=== PATIENT | female | born 1940 | race Caucasian/White ===

== ENCOUNTER 2019-11-14 14:39 | Outpatient (CLI) | payer MEDICARE, OTHER, SELFPAY ==
--- NOTE | 2019-11-14 14:50 | MM_ITS ---
WS: [id number] BILATERAL DIGITAL SCREENING MAMMOGRAPHY WITH CAD CLINICAL INFORMATION: SCREENING HISTORY: Screening mammogram. No current complaints. COMPARISON: October 12, 2018 TECHNIQUE: Bilateral CC and MLO views. FINDINGS: The breasts are composed of heterogeneous fibroglandular density tissue, which can limit the detectio n of small underlying mass lesions. No suspicious mass, asymmetry, calcifications, or architectural d istortion. No evidence of malignancy. MM/[place] [id number] IMPRESSION: BI-RADS: 1-Negative FOLLOW UP: 1 Year Follow-up Recommend return to annual screening mammography.
== END 2019-11-14 14:40 | disposition home or self-care (01) ==
LOC: RADSHAW 14:43
PROVIDERS: Family Provider Family Medicine; PCP Family Medicine; Visit Provider Family Medicine
DX: Z12.31 Encounter for screening mammogram for malignant neoplasm of breast (principal)
CPT/HCPCS: 77067

== ENCOUNTER 2019-12-31 10:24 | Outpatient (CLI) | payer MEDICARE, OTHER, SELFPAY ==
[2019-12-31 10:46] VITALS: BP 162/82; PULSE 60; RESP 18; TEMP 36.4; O2SAT 94; BMI 18.8
[2019-12-31] MEDS: denosumab 60 mg SDV SUBCUT (10:48)
[2019-12-31 11:29] LABS: Calcium 10.6 mg/dL (8.5-10.5)
== END 2019-12-31 10:25 | disposition home or self-care (01) ==
LOC: GILAB 10:31
PROVIDERS: Family Provider Family Medicine; PCP Family Medicine; Visit Provider Family Medicine
DX: M81.0 Age-related osteoporosis without current pathological fracture (principal)
CPT/HCPCS: 82310; 82565; 96372; J0897

== ENCOUNTER → 2020-07-10 11:15 | Day surgery (SDC) | payer MEDICARE, OTHER, SELFPAY ==
[2020-07-10 11:54] VITALS: BMI 18.8
[2020-07-10] MEDS: denosumab 60 mg SDV SUBCUT (12:34)
== END ==
PROVIDERS: PCP Family Medicine; Visit Provider Family Medicine
DX: M81.0 Age-related osteoporosis without current pathological fracture (principal)
CPT/HCPCS: 96372; J0897

== ENCOUNTER 2020-11-25 13:27 | Outpatient (CLI) | payer MEDICARE, OTHER, SELFPAY ==
--- NOTE | 2020-11-25 13:38 | MM_ITS ---
WS: [id number] BILATERAL SCREENING DIGITAL MAMMOGRAM WITH CAD HISTORY: SCREENING COMPARISON: 11/14/2019, 10/22/2018, 10/19/2017 Bilateral CC and MLO views submitted. Computer aided detection analyzed. Breast composition: There are scattered areas of fibroglandular density. No suspicious masses, microc alcifications or architectural distortion. Asymmetries in each breast are stable over multiple prior years. MM/[place] [id number] IMPRESSION: BI-RADS: 2-Benign FOLLOW UP: 1 Year Follow-up
== END 2020-11-25 13:28 | disposition home or self-care (01) ==
LOC: RADSHAW 13:34
PROVIDERS: PCP Family Medicine; Visit Provider Family Medicine
DX: Z12.31 Encounter for screening mammogram for malignant neoplasm of breast (principal)
CPT/HCPCS: 77067

== ENCOUNTER → 2021-01-19 09:14 | Day surgery (SDC) | payer MEDICARE, OTHER, SELFPAY ==
[2021-01-19 09:30] VITALS: BP 157/80; PULSE 70; RESP 16; TEMP 36.6; O2SAT 98
[2021-01-19 09:31] VITALS: BMI 18.8
[2021-01-19] MEDS: denosumab 60 mg SDV SUBCUT (09:40)
== END ==
PROVIDERS: PCP Family Medicine; Visit Provider Family Medicine
DX: M81.0 Age-related osteoporosis without current pathological fracture (principal)
CPT/HCPCS: 96372; J0897

== ENCOUNTER 2021-02-16 15:17 | Outpatient (CLI) | payer MEDICARE, OTHER, SELFPAY ==
--- NOTE | 2021-02-16 15:32 | XR_ITS ---
WS: [id number] SCREENING DEXA SCAN VIRIDAXIS CLINICAL INFORMATION: AGE RELATED OSTEOPOROSIS WITHOUT CURRENT PATHOLOGICAL FRACTU COMPARISON: 018 FINDINGS: The L1-L4 bone mineral density measures 0.965 g/cm2. This corresponds to a T score score of -1.8 and Z score of 0.5. Left femoral neck bone mineral density measures 0.568 g/cm2. This corresponds to a T score of -3.5 an d Z score of -1.1. Right femoral neck bone mineral density measures 0.565 g/cm2. This corresponds to a T score -3.5of an d Z score of -1.1. Mean femoral neck bone mineral density measures 0.566 g/cm2. This corresponds to a T score of -3.5 an d Z score of -1.1. XR/XR DEXA axial skeleton* [id number] IMPRESSION: Osteopenia lumbar spine. Osteoporosis in the femoral necks. Patient's FRAX calculated 10 year probability for major osteoporotic fracture i s 59.8 % and osteoporotic hip fracture is 50.8%.
== END 2021-02-16 15:18 | disposition home or self-care (01) ==
LOC: RADWPI 15:22
PROVIDERS: PCP Family Medicine; Visit Provider Family Medicine
DX: M81.0 Age-related osteoporosis without current pathological fracture (principal); M85.88 Other specified disorders of bone density and structure, other site
CPT/HCPCS: 77080

== ENCOUNTER 2021-04-03 17:06 | Inpatient (IN) | payer MEDICARE, OTHER, SELFPAY ==
[2021-04-03] VITALS (9 sets, daily range): BP systolic 81–121; BP diastolic 57–77; PULSE 60–97; RESP 18–21; TEMP 36.5–37.2; O2SAT 92–100; BMI 18.8
--- NOTE | 2021-04-03 17:22 | ECG_ITS ---
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 Measurements Intervals [place] Rate: 80 P: -13 SD: 167 QRS: -25 QRSD: 88 T: -10 QT: 360 QTc: 418 Interpretive Statements SINUS RHYTHM LEFT ATRIAL ENLARGEMENT [-0.15mV P WAVE IN V1/V2] POSSIBLE RIGHT VENTRICULAR CONDUCTION DELAY [RSR (QR) IN V1/V2] POSSIBLE ANTERIOR MYOCARDIAL INFARCTION , OF INDETERMINATE AGE [30 ms Q WAVE IN V3/V4, OR R < 0.2 mV IN V4] Compared to ECG 07/25/2018 12:44:37 Myocardial infarct finding now present ST (T wave) deviation no longer present Electronically Signed On 04-04-2021 16:01:58 CDT by Javier Souza M.D. [id number]
--- NOTE | 2021-04-03 17:22 | XRR_ITS ---
PROCEDURE INFORMATION: Exam: XR Chest Exam date and time: 04/03/2021 5:24 PM Age: 80 years old Clinical indication: Dyspnea; Additional info: Cp TECHNIQUE: Imaging protocol: XR of the chest. Views: 1 view. COMPARISON: CR Ribs Bilateral w PA CXR [id number] 05/24/2018 5:19 PM FINDINGS: Lungs: There is calcified granuloma in the right upper lobe. No acute infiltrate is identified. There are emphysematous changes in both lungs. Pleural spaces: Unremarkable. No pleural effusion. No pneumothorax. Heart/Mediastinum: There is mild cardiomegaly. Bones/joints: Unremarkable. XR/XR chest 1V portable [id number] IMPRESSION: Cardiomegaly. No acute infiltrate.
[2021-04-03] MEDS: sodium chloride 0.9% 1,000 ML 999 ML IV ×2 (17:56→21:23)
[2021-04-03 17:59] LABS: Basophils # 0.1 10^3/uL (0.0-0.1); Basophils % 0.7 %; Eosinophils % 0.1 %; Hematocrit 40.9 % (37.0-47.0); Hemoglobin 13.2 g/dL (11.5-15.3); Lymphocytes # 0.9 10^3/uL (0.8-4.8); Lymphocytes % 8.2 %; Mean Corpuscular HGB Conc 32.3 g/dL (30.0-36.0); Mean Corpuscular Hemoglobin 30.1 pg (28.0-34.0); Mean Corpuscular Volume 93.4 fL (81-99); Mean Platelet Volume 11.8 fL (7.4-10.4); Monocytes # 0.9 10^3/uL (0.2-0.9); Monocytes % 8.9 %; Neutrophils # 8.55 10^3/uL (1.8-7.7); Neutrophils % 81.7 %; Nucleated Red Blood Cells % 0 %; Platelet Count 195 10^3/cmm (130-400); Red Blood Count 4.38 10^6/uL (4.1-5.3); White Blood Count 10.5 10^3/uL (4.0-10.0)
[2021-04-03 18:40] LABS: Alanine Aminotransferase 12 U/L (0-33); Albumin Level 4.2 g/dL (3.5-5.2); Alkaline Phosphatase 38 IU/L (35-105); Anion Gap 13.8 (5-19); Aspartate Amino Transferase 23 U/L (0-32); Blood Urea Nitrogen 22 mg/dL (8-23); Calcium 9.8 mg/dL (8.5-10.5); Carbon Dioxide 29 mmol/L (22-29); Chloride 102 mmol/L (98-107); Creatinine Clr Calc Pharmacy 33.5128; Globulin 1.9 g/dL (1.3-4.6); Glucose 109 mg/dL (65-115); Lipase 53 U/L (13-60); Osmolality Calculated 294 mOsm/kg (285-295); Potassium 4.8 mmol/L (3.5-5.1); Sodium 140 mmol/L (136-145); Total Bilirubin 0.3 mg/dL (0.15-1.2); Total Protein 6.1 g/dL (6.6-8.7)
[2021-04-03 18:42] LABS: Troponin(5th) Baseline 631 ng/L (0-10)
--- NOTE | 2021-04-03 18:49 | PC.NURSE ---
patient denied any nausea at this time. c/o mild tightness to chest. no acute distress noted.
[2021-04-03] MEDS: aspirin 325 mg Tablet PO (18:54)
[2021-04-03] MEDS: clopidogrel 300 mg Tablet PO (18:54)
[2021-04-03] MEDS: enoxaparin 60 mg/0.6 mL Syringe 54 MG SUBCUT (18:56)
--- NOTE | 2021-04-03 19:06 | PM.HP ---
Providers/Chief Complaint Primary Care Provider: Kassy Michel MD Chief Complaint: chest heaviness,N/V,Weak,faint upon standing History of Present Illness Deedee Mcneill is a 80 year old female who does not have significant past medical history other than hypothyroidism and hypertension presented today with chief complaint of nausea and presyncope. Patient is stating that her symptoms started on Monday when she was cleaning her patio and backyard and raking leaves. She was experiencing nausea at that time as well with some chest heaviness but she would not call the chest pain. She considers herself fairly active for her age, involved with her community. Today she was attending class [employer] when around 11 AM she started experiencing nausea again, and felt extremely dizzy, she sat down which resolved her symptoms. Her symptoms lasted for about few seconds. She did not experience any shortness of breath or chest pain. She is denying orthopnea, PND. She went back home and experienced worsening of her symptoms associated with some neck discomfort/stiffness and around 4:00 she decided to come to the hospital for further evaluation. No motor weakness, falls, syncopal events, no previous history of CHF, DC or coronary artery disease. No previous history of stroke. Diagnostics in the ER revealed hypotension, she was saturating well on room air, normal CBC BMP revealed FANI, troponin baseline 631 BNP 348 TSH is normal EKG showing T wave inversion in lead III aVF with upsloping of T waves in lateral leads, anteroseptal leads showing changes consistent with incomplete right bundle branch block, requested D-dimer as she is low risk for PE, Dr. García also came to evaluate the patient. Review of Systems Const: Denies: fever(s) Eyes: Denies: change in vision ENMT: Denies: throat pain Card: Reports: chest pain and pre-syncope Resp: Denies: dyspnea GI: Reports: nausea and constipation : Denies: flank pain Musc: Denies: neck pain Skin/Breast: Denies: rash Neuro: Denies: headache(s) Psych: Denies: anxiety Endo: Denies: polyuria Darrell/Lymph: Denies: easy bruising All/Imm: Denies: urticaria Medications/Allergies Home Medications Medication Instructions Recorded Confirmed Last Taken Type trazodone 50 mg tablet 100 mg PO BEDTIME tab 11/19/19 04/03/21 04/02/21 History hydrochlorothiazide 12.5 mg PO QAM 07/10/20 04/03/21 04/02/21 History Calcium + D 1 tab PO BID 04/03/21 04/03/21 Unknown History Fish Oil 1 cap PO BID 04/03/21 04/03/21 Unknown History Vitamin C 1 tab PO BID 04/03/21 04/03/21 Unknown History levothyroxine 50 mcg PO DAILY@22 04/03/21 04/03/21 04/02/21 History multivitamin 1 tab PO DAILY 04/03/21 04/03/21 Unknown History turmeric 400 mg PO BID 04/03/21 04/03/21 Unknown History zinc 1 cap PO DAILY 04/03/21 04/03/21 Unknown History Allergies Allergy/AdvReac Type Severity Reaction Status Date / Time penicillamine Allergy ALGY-Rash Verified 02/02/21 10:47 Penicillins Allergy Unknown Verified 04/03/21 17:47 Sulfa (Sulfonamide Allergy ALGY-Rash Verified 04/03/21 17:47 Antibiotics) PFSH Acute PFSH: Medical History Closed fracture of right wrist Hypertension Ingrown toenail of left foot Insomnia Onychomycosis of toenail Thyroid disease Surgical History H/O section Family History Grandfather Cancer Mother Hypertension Denies family history of Diabetes CAD (coronary artery disease) Clotting disorder Dementia Hyperlipidemia Psychiatric illness Chronic kidney disease (CKD) Suicide Anesthesia complication Bleeding disorder Family history of premature coronary artery disease Lung disease Stroke Social History Smoking and tobacco status: never smoked Alcohol intake: never Vitals/I&O/Wt Last Vital Signs Temp 98.9 F 04/03/21 17:14 Pulse 71 04/03/21 18:41 Resp 18 04/03/21 18:41 BP 103/75 04/03/21 18:41 Pulse Ox 97 04/03/21 18:41 Weight last 48 hrs Weight 54.431 kg Physical Exam Narrative: EXAM NARRATIVE: elderly female who was laying comfortably in her bed when entered the room, [id number] at the bedside She was saturating well on room air systolic blood pressure 97 mmHg She is complaining of neck stiffness however no signs of meningitis or meningismus S1, S2 sinus rhythm no murmur appreciated no signs of heart failure Abdomen soft Lower extremity no edema gangrene or ulcer EOMI, PERRLA Well hydrated, appropriate grooming, No focal deficits noted No acute respiratory distress bilateral breath sounds without adventitious rhonchi or crackles Very pleasant and cooperative during my evaluation Data : 04/03/21 17:50 04/03/21 18:13 A&P Assessment and plan (1) NSTEMI (non-ST elevated myocardial infarction): Status: Acute (2) FANI (acute kidney injury): Status: Acute Additional A&P Information Non-STEMI Troponin 631, EKG showing T wave inversion lead III, aVF, incomplete right bundle branch block, upsloping of T waves in lateral leads, systolic blood pressure 97 mmHg, patient is complaining of mild neck stiffness and discomfort, her symptoms are angina equivalent Start aspirin, Plavix high-dose statin and Toprol, Dr. García has evaluated her and recommended nitro gtt because of her neck stiffness and EKG changes, however we will monitor with telemetry on CSU if her mean arterial pressure reduces with nitroglycerin as we are seeing changes in inferior leads We will keep her n.p.o. ACS protocol initiated Check D-dimer, TSH normal Serial troponin and EKGs Start lisinopril once creatinine is normal Dr. García consulted Acute kidney injury Patient at home takes hydrochlorothiazide levothyroxine and multivitamins Clinically not fluid overloaded No signs of UTI We will keep her on normal saline at 50 cc/h, monitor BMP urine output and creatinine for now, etiology of FANI unclear Hypertension: Currently systolic blood pressure is 97 mmHg, hold hydrochlorothiazide, TSH is normal Hypothyroidism: Continue levothyroxine N.p.o. DVT prophylaxis not indicated currently on therapeutic dose of Lovenox Full code Attestations Medical Necessity Statement*: Anticipating stay in the hospital cross more than 2 midnights for non-STEMI management Time Spent in Patient Care: (>than 50% of time spent in counselling and/or direct pt care on unit). 40mins Coding Level of Care Code Acute [employer] for Chg Fwd Diagnoses NSTEMI (non-ST elevated myocardial infarction) I21.4 FANI (acute kidney injury) N17.9
--- NOTE | 2021-04-03 19:18 | PC.NURSE ---
hold nitroglycerin tab SL and nitroglycerin drip per MD
--- NOTE | 2021-04-03 19:22 | ECG_ITS ---
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 Measurements Intervals [place] Rate: 73 P: 90 AL: 175 QRS: 93 QRSD: 76 T: 73 QT: 383 QTc: 424 Interpretive Statements SINUS RHYTHM WITH MARKED SINUS ARRHYTHMIA POSSIBLE LEFT ATRIAL ENLARGEMENT [-0.1mV P WAVE IN V1/V2] BORDERLINE RIGHT AXIS DEVIATION [QRS AXIS > 90] MODERATE ST DEPRESSION [0.05+ mV ST DEPRESSION] Compared to ECG 04/03/2021 17:32:29 ST (T wave) deviation now present Myocardial infarct finding no longer present Electronically Signed On 04-04-2021 16:06:17 CDT by Javier Souza M.D. [id number]
--- NOTE | 2021-04-03 19:26 | W.ED.CHESTPA ---
Documented by User: Laney Clintzoraida 04/03/21 19:32 HPI - Chest Pain General: Chief Complaint: Chest Pain Stated Complaint: chest heaviness,N/V,Weak,faint upon standing Time Seen by Provider: 04/03/21 17:12 Source: patient Mode of arrival: ambulatory Limitations: no limitations History of Present Illness: HPI narrative: 80 yo female patient presents to ER with dizziness nausea and chest pressure patient states it feels like something is squeezing her chest. Pt c/o mild SOB. Pt states this started about 1100 today. Pt states she had a similar episode on monday as well. Pt states her only medical history is thyroid disease but otherwise healthy. Associated symptoms: Reports dyspnea; Deny abdominal pain, diaphoresis, fever(s), nausea, palpitations, syncope or vomiting Risk Factors: Coronary artery disease risk factors: none Related Data: On Oral Contraceptives: No Review of Systems Const: Denies: fever(s), chills, body aches, change in appetite, change in weight, fatigue, malaise or diaphoresis Eyes: Denies: change in vision, blurry vision, blind spots, photophobia, eye discomfort, eye discharge, eye redness, floaters or seeing flashes ENMT: Denies: throat pain, uvular edema, enlarged tonsils, odynophagia, hoarseness, mouth pain, swelling of lips/tongue, oral sores, bleeding gums, dental pain, dry mouth, ear or mastoid pain, ear discharge, change in hearing, tinnitus, disequilibrium, nasal discharge, nasal congestion, post nasal drip or sinus pain Card: Reports: chest pain; Denies: palpitations, irregular heart rhythm, edema, swelling of feet/ankles, lightheadedness, syncope, pre-syncope, dyspnea on exertion, orthopnea, leg pain with exertion or acrocyanosis Resp: Reports: dyspnea; Denies: productive cough, non-productive cough, wheezing, stridor, pain on inspiration, change in phlegm color, hemoptysis or chest congestion GI: Denies: abdominal pain, nausea, vomiting, hematemesis, dysphagia, diarrhea, constipation, GI cramping, change in bowel habits or rectal pain : Denies: flank pain, difficulty voiding, dysuria, urinary frequency, urinary urgency, urinary hesitancy or hematuria Musc: Denies: neck pain, back pain, extremity pain, extremity swelling, joint pain, joint swelling, joint redness, joint warmth or deformity Skin/Breast: Denies: rash, pruritus, erythema, sores, new lesions, changes in skin color or dry skin Neuro: Reports: dizziness; Denies: headache(s), numbness in extremities, weakness in extremities, sensory changes, lack of coordination, difficulty walking, frequent falls, vertigo, confusion, behavioral changes, Slurred speech present, difficulty communicating thoughts or seizure-like activity Psych: Denies: anxiety, depression, suicidal ideation or homicidal ideation Endo: Denies: polyuria, polydipsia, tired all the time, cold intolerance, excessive sweating, flushing, hot flashes or heat intolerance Darrell/Lymph: Denies: easy bruising, easy bleeding, petechiae, purpura, enlarged lymph nodes or tender lymph nodes All/Imm: Denies: urticaria, throat swelling, tongue swelling, facial swelling, acute wheezing or itchy eyes PFSH ED PFSH: Medical History (Updated 04/03/21 @ 23:30 by Pankaj Nielson MD, [facility] [place]) Closed fracture of right wrist Hypertension Ingrown toenail of left foot Insomnia Onychomycosis of toenail Thyroid disease Surgical History H/O section Family History Grandfather Cancer Mother Hypertension Denies family history of Diabetes CAD (coronary artery disease) Clotting disorder Dementia Hyperlipidemia Psychiatric illness Chronic kidney disease (CKD) Suicide Anesthesia complication Bleeding disorder Family history of premature coronary artery disease Lung disease Stroke Social History Smoking and tobacco status: never smoked Alcohol intake: never Physical Exam Const: COMMON NORMALS: no acute distress, patient oriented x3, healthy appearing, alert and well nourished GENERAL APPEARANCE: cooperative, comfortable, well kempt and well developed; not ill appearing ORIENTATION/CONSCIOUSNESS: Yes awake, Yes oriented to person, Yes oriented to place and Yes oriented to time HENMT: COMMON NORMALS: normocephalic, atraumatic, hearing grossly normal bilaterally, external ears normal, EAC's normal, TM's normal bilaterally, Normal external nose present, Normal nasal mucous membranes and turbinates present and moist oral mucous membranes HEAD & SCALP: normal to inspection, normocephalic and atraumatic FACE & SINUS: normal facial exam, sinuses nontender and face symmetric NOSE: Normal external nose present, Normal nares present, Normal nasal mucous membranes and turbinates present, No nasal discharge present and Abnormal external nose present EXTERNAL EAR: Yes external ears normal and Yes mastoids normal EXTERNAL AUDITORY CANAL: EAC's normal TYMPANIC MEMBRANE: TM's normal bilaterally MOUTH: Normal oral and palatal mucosa present, lip normal, tongue normal and Normal salivary glands and ducts present THROAT: no uvular edema Eye: COMMON NORMALS: Equal, round and reactive pupils present, EOMs intact bilaterally, conjunctivae normal, no scleral icterus and no papilledema GENERAL EYE: appearance normal, both eyes and all related structures EYELID: eyelids normal CONJUNCTIVA: Yes conjunctivae normal SCLERA: sclerae normal CORNEA: Yes corneas normal PUPIL: Yes Equal, round and reactive pupils present DIRECT OPHTHALMOSCOPY: Yes no papilledema Neck/C-Spine: COMMON NORMALS: full ROM, no lymphadenopathy, supple, no meningeal signs, no JVD and Thyroid normal GENERAL: Yes normal visual inspection and Yes trachea midline THYROID: Thyroid normal CERVICAL SPINE: Yes cervical ROM normal Lymph: LYMPHATIC: no lymphadenopathy noted and no lymphedema noted Chest: COMMONS NORMALS: normal inspection of the chest and normal palpation of entire chest wall Resp: COMMON NORMALS: normal respiratory effort, No retractions, No use of accessory muscles and clear to auscultation bilaterally EFFORT & INSPECTION: Yes able to speak in complete sentences and Yes symmetric chest movement AUSCULTATION: clear to auscultation bilaterally Cardio: COMMON NORMALS: no JVD, regular rate and regular rhythm RATE: regular rate RHYTHM: regular rhythm GI: COMMON NORMALS: Normal to inspection, nondistended, normoactive bowel sounds present, Soft to palpation, non-tender, No hepatosplenomegaly present, no masses and no bruits INSPECTION: Yes normal to inspection AUSCULTATION: Yes normoactive bowel sounds PALPATION: Yes Soft to palpation and Yes No hepatosplenomegaly present PERCUSSION: normal to percussion RECTAL EXAM: deferred : COMMON NORMALS: Yes no CVA tenderness, Yes normal external appearance, Yes normal appearance of the vagina, Yes normal appearance of the cervix, Yes normal bimanual exam, Yes No adnexal tenderness and Yes no masses BLADDER/KIDNEY EXAM: Yes no CVA tenderness BIMANUAL EXAM - VAGINA & UTERUS: Yes normal bimanual exam Back/Pelvis: COMMON NORMALS: no CVA tenderness, thoracic and lumbar spine normal to inspection, no thoracic nor lumbar tenderness, thoraco-lumbar ROM normal and straight leg raise negative bilaterally THORACIC SPINE/UPPER BACK: Yes normal to inspection LUMBAR SPINE/LOWER BACK: Yes normal to inspection Extremity: COMMON NORMALS: normal to inspection, full ROM and capillary refill normal GENERAL: Yes normal exam except as noted Neuro: COMMON NORMALS: patient oriented x3, CN's II-XII intact bilaterally, moves all extremities, no focal motor deficits, no sensory deficits noted, deep tendon reflexes 2+ bilaterally and gait normal SENSORIUM/ORIENTATION: Yes alert, Yes oriented to person, Yes oriented to place and Yes oriented to time MENINGEAL SIGNS: Yes no meningeal signs CRANIAL NERVES: Yes CN normal except as noted SPEECH: speech normal GAIT: Yes Normal gait present SENSORY EXAM: Yes extremities MOTOR EXAM: 5/5 motor strength present throughout Psych: COMMON NORMALS: mental status grossly normal, Normal thought process present, cooperative, normal affect, speech normal, activity/motor behavior normal, denies hallucinations, denies homicidal ideation and denies suicidal ideation APPEARANCE: Yes grossly normal and Yes well kempt ATTITUDE: Yes calm ACTIVITY/MOTOR BEHAVIOR: Yes appropriate eye contact SPEECH: Yes normal speech THOUGHT PROCESS: Normal thought process present THOUGHT CONTENT: Yes Normal thought content present ATTENTION/CONCENTRATION: Yes attention grossly intact MEMORY/COGNITION: Yes memory grossly intact INSIGHT: Good insight present (Psych) JUDGEMENT: Good judgement present (Psych) Skin: COMMON NORMALS: no rashes or lesions noted, no wounds, turgor normal, no jaundice, no petechiae and no mottling GENERAL SKIN EXAM: no rashes or lesions noted and turgor normal Course Vital Signs: Vital signs: Vital Signs Temperature 97.7 F 04/03/21 20:14 Pulse Rate 79 04/03/21 22:30 Respiratory Rate 21 H 04/03/21 20:14 Blood Pressure 108/72 04/03/21 20:14 Pulse Oximetry 100 04/03/21 20:14 MDM - Chest Pain MDM Narrative: Medical decision making narrative: Pt is well appearing non toxic and in no acute distress. Based on patient presenting complaints and age, I will plan on doing a cardiac work up check TSH as it has been over a year and also CT head and neck angio. Pts initial trop was over 60. Dr. Nielson spoke with medical staff director who would like nitro gtts asa and lovenox initiated. Other labs and CT pending. I will plan on admitting patient at this time. Pt is stable with stable VSS. Pt has been updated of this plan Lab Data: Labs: Lab Results 04/03/21 04/03/21 04/03/21 Range/Units 17:50 17:50 17:50 WBC 10.5 H (4.0-10.0) 10^3/ uL RBC 4.38 (4.1-5.3) 10^6/u L Hgb 13.2 (11.5-15.3) g/dL Hct 40.9 (37.0-47.0) % MCV 93.4 (81-99) fL MCH 30.1 (28.0-34.0) pg MCHC 32.3 (30.0-36.0) g/dL RDW 13.0 (12.1-15.1) % Plt Count 195 (130-400) 10^3/c mm MPV 11.8 H (7.4-10.4) fL Neut % (Auto) 81.7 % Lymph % (Auto) 8.2 % [place] % (Auto) 8.9 % Eos % (Auto) 0.1 % Baso % (Auto) 0.7 % Neut # (Auto) 8.55 H (1.8-7.7) 10^3/u L Lymph # (Auto) 0.9 (0.8-4.8) 10^3/u L [place] # (Auto) 0.9 (0.2-0.9) 10^3/u L Eos # (Auto) 0.0 (0.0-0.8) 10^3/u L Baso # (Auto) 0.1 (0.0-0.1) 10^3/u L Nucleated RBC % (a uto) 0 % Nucleated RBCs # 0.0 /100WBC Sodium Cancelled Potassium Cancelled Chloride Cancelled Carbon Dioxide Cancelled Anion Gap Cancelled BUN Cancelled Creatinine Cancelled GFR Calculation Cancelled Glucose Cancelled Calculated Osmolal ity Cancelled Calcium Cancelled Magnesium (1.7-2.3) mg/dL Total Bilirubin Cancelled AST Cancelled ALT Cancelled Alkaline Phosphata se Cancelled Troponin T Baselin e Cancelled NT-Pro-B Natriuret Pep (0-450) pg/mL Total Protein Cancelled Albumin Cancelled Globulin Cancelled Lipase Cancelled TSH (0.27-4.20) uIU/ mL 04/03/21 04/03/21 04/03/21 Range/Units 18:13 18:13 18:13 WBC (4.0-10.0) 10^3/ uL RBC (4.1-5.3) 10^6/u L Hgb (11.5-15.3) g/dL Hct (37.0-47.0) % MCV (81-99) fL MCH (28.0-34.0) pg MCHC (30.0-36.0) g/dL RDW (12.1-15.1) % Plt Count (130-400) 10^3/c mm MPV (7.4-10.4) fL Neut % (Auto) % Lymph % (Auto) % [place] % (Auto) % Eos % (Auto) % Baso % (Auto) % Neut # (Auto) (1.8-7.7) 10^3/u L Lymph # (Auto) (0.8-4.8) 10^3/u L [place] # (Auto) (0.2-0.9) 10^3/u L Eos # (Auto) (0.0-0.8) 10^3/u L Baso # (Auto) (0.0-0.1) 10^3/u L Nucleated RBC % (a uto) % Nucleated RBCs # /100WBC Sodium 140 Potassium 4.8 Chloride 102 Carbon Dioxide 29 Anion Gap 13.8 BUN 22 Creatinine 1.2 H GFR Calculation Not Reportable Glucose 109 Calculated Osmolal ity 294 Calcium 9.8 Magnesium 2.3 (1.7-2.3) mg/dL Total Bilirubin 0.3 AST 23 ALT 12 Alkaline Phosphata se 38 Troponin T Baselin e 631 H* NT-Pro-B Natriuret Pep 348 (0-450) pg/mL Total Protein 6.1 L Albumin 4.2 Globulin 1.9 Lipase 53 TSH 2.38 (0.27-4.20) uIU/ mL Discharge Plan Discharge Patient Disposition: Admitted As Inpatient Admit Provider: Alfredo Olmedo Clinical Impression: NSTEMI (non-ST elevated myocardial infarction) Condition: Stable Coding Level of Care Code ED Project Controls Specialist for Chg Fwd Exam Comprehensive Documented by User: Pankaj Nielson MD, MSM 04/03/21 23:30 HPI - Chest Pain General: Chief Complaint: Chest Pain Stated Complaint: chest heaviness,N/V,Weak,faint upon standing Time Seen by Provider: 04/03/21 17:12 PFSH ED PFSH: Medical History (Updated 04/03/21 @ 23:30 by Pankaj Nielson MD, [facility] [place]) Closed fracture of right wrist Hypertension Ingrown toenail of left foot Insomnia Onychomycosis of toenail Thyroid disease Surgical History H/O section Family History Grandfather Cancer Mother Hypertension Denies family history of Diabetes CAD (coronary artery disease) Clotting disorder Dementia Hyperlipidemia Psychiatric illness Chronic kidney disease (CKD) Suicide Anesthesia complication Bleeding disorder Family history of premature coronary artery disease Lung disease Stroke Social History Smoking and tobacco status: never smoked Alcohol intake: never Course Vital Signs: Vital signs: Vital Signs Temperature 97.7 F 04/03/21 20:14 Pulse Rate 79 04/03/21 22:30 Respiratory Rate 21 H 04/03/21 20:14 Blood Pressure 108/72 04/03/21 20:14 Pulse Oximetry 100 04/03/21 20:14 MDM - Chest Pain MDM Narrative: Medical decision making narrative: Kindly evaluate the midlevel provider's notes for complete history and physical examination I also evaluated this patient and agree with her findings. Essentially this is an 80-year-old female with no prior cardiac history who presents to the emergency department with chest pain, dizziness, diaphoresis, nausea. Evaluation in the emergency department is consistent with a non-STEMI with baseline troponin in the 600s, no significant EKG changes. She was given aspirin, nitroglycerin, clopidogrel, therapeutic dose of Lovenox and admitted to the cardiac stepdown unit for further evaluation and management. She will be seen in the hospital by the medical staff director as well as hospitalist. Lab Data: Labs: Lab Results 04/03/21 04/03/21 04/03/21 Range/Units 17:50 17:50 17:50 WBC 10.5 H (4.0-10.0) 10^3/ uL RBC 4.38 (4.1-5.3) 10^6/u L Hgb 13.2 (11.5-15.3) g/dL Hct 40.9 (37.0-47.0) % MCV 93.4 (81-99) fL MCH 30.1 (28.0-34.0) pg MCHC 32.3 (30.0-36.0) g/dL RDW 13.0 (12.1-15.1) % Plt Count 195 (130-400) 10^3/c mm MPV 11.8 H (7.4-10.4) fL Neut % (Auto) 81.7 % Lymph % (Auto) 8.2 % [place] % (Auto) 8.9 % Eos % (Auto) 0.1 % Baso % (Auto) 0.7 % Neut # (Auto) 8.55 H (1.8-7.7) 10^3/u L Lymph # (Auto) 0.9 (0.8-4.8) 10^3/u L [place] # (Auto) 0.9 (0.2-0.9) 10^3/u L Eos # (Auto) 0.0 (0.0-0.8) 10^3/u L Baso # (Auto) 0.1 (0.0-0.1) 10^3/u L Nucleated RBC % (a uto) 0 % Nucleated RBCs # 0.0 /100WBC Sodium Cancelled Potassium Cancelled Chloride Cancelled Carbon Dioxide Cancelled Anion Gap Cancelled BUN Cancelled Creatinine Cancelled GFR Calculation Cancelled Glucose Cancelled Calculated Osmolal ity Cancelled Calcium Cancelled Magnesium (1.7-2.3) mg/dL Total Bilirubin Cancelled AST Cancelled ALT Cancelled Alkaline Phosphata se Cancelled Troponin T Baselin e Cancelled NT-Pro-B Natriuret Pep (0-450) pg/mL Total Protein Cancelled Albumin Cancelled Globulin Cancelled Lipase Cancelled TSH (0.27-4.20) uIU/ mL 04/03/21 04/03/21 04/03/21 Range/Units 18:13 18:13 18:13 WBC (4.0-10.0) 10^3/ uL RBC (4.1-5.3) 10^6/u L Hgb (11.5-15.3) g/dL Hct (37.0-47.0) % MCV (81-99) fL MCH (28.0-34.0) pg MCHC (30.0-36.0) g/dL RDW (12.1-15.1) % Plt Count (130-400) 10^3/c mm MPV (7.4-10.4) fL Neut % (Auto) % Lymph % (Auto) % [place] % (Auto) % Eos % (Auto) % Baso % (Auto) % Neut # (Auto) (1.8-7.7) 10^3/u L Lymph # (Auto) (0.8-4.8) 10^3/u L [place] # (Auto) (0.2-0.9) 10^3/u L Eos # (Auto) (0.0-0.8) 10^3/u L Baso # (Auto) (0.0-0.1) 10^3/u L Nucleated RBC % (a uto) % Nucleated RBCs # /100WBC Sodium 140 Potassium 4.8 Chloride 102 Carbon Dioxide 29 Anion Gap 13.8 BUN 22 Creatinine 1.2 H GFR Calculation Not Reportable Glucose 109 Calculated Osmolal ity 294 Calcium 9.8 Magnesium 2.3 (1.7-2.3) mg/dL Total Bilirubin 0.3 AST 23 ALT 12 Alkaline Phosphata se 38 Troponin T Baselin e 631 H* NT-Pro-B Natriuret Pep 348 (0-450) pg/mL Total Protein 6.1 L Albumin 4.2 Globulin 1.9 Lipase 53 TSH 2.38 (0.27-4.20) uIU/ mL Imaging Data^: CXR: Attestation: I personally reviewed and interpreted this imaging study as follows: Radiologist's impression: [id number] [place], [place] [address]TMxb ReportSigned Patient: Kyle Mcneill #: [id number]: [id number]#:[id number]/Sex: 80 / FADM Date: 04/03/21Loc: ERRoom/Bed:Attending Dr: Ordering Provider/Ordering MD: Laney Griffith NP Date of Service: 04/03/21 Procedure(s): XR chest 1V portable [id number] Accession Number(s): [id number] Report Number: [id number] PROCEDURE INFORMATION: Exam: XR Chest Exam date and time: 04/03/2021 5:24 PM Age: 80 years old Clinical indication: Dyspnea; Additional info: Cp TECHNIQUE: Imaging protocol: XR of the chest. Views: 1 view. COMPARISON: CR Ribs Bilateral w PA CXR [id number] 05/24/2018 5:19 PM FINDINGS: Lungs: There is calcified granuloma in the right upper lobe. No acute infiltrate is identified. There are emphysematous changes in both lungs. Pleural spaces: Unremarkable. No pleural effusion. No pneumothorax. Heart/Mediastinum: There is mild cardiomegaly. Bones/joints: Unremarkable. XR/XR chest 1V portable [id number] IMPRESSION: Cardiomegaly. No acute infiltrate. Dictated By:Danelle Serranoigned By:Candelario Serrano Date/Time:04/03/211817DD/ 16 EKG Data^: EKG 1: Attestation: I personally reviewed and interpreted this EKG as follows: EKG interpretation date: 04/03/21 EKG interpretation time: 17:32 Prior EKG tracings: not available for review Interpretation: sinus rhythm HR 80 bpm Left atrial enlargement. No ST changes EKG 2: Attestation: I personally reviewed and interpreted this EKG as follows: EKG interpretation date: 04/03/21 EKG interpretation time: 19:09 Prior EKG tracings: available for review Interpretation: Sinus rhythm. Heart rate 73 bpm. Left atrial enlargement. No ST changes. No significant change from earlier. Discharge Plan Discharge Patient Disposition: Admitted As Inpatient Admit Provider: Alfredo Olmedo Clinical Impression: NSTEMI (non-ST elevated myocardial infarction) Condition: Stable Coding Level of Care Code ED Project Controls Specialist for g Fwd Exam Comprehensive
[2021-04-03 19:29] LABS: INR 0.95 (0.8-1.2)
[2021-04-03 19:30] LABS: Partial Thromboplastin Time 25.7 SECONDS (23.9-36.7)
[2021-04-03 19:40] LABS: Magnesium 2.3 mg/dL (1.7-2.3); NT Pro B Type Natriuretic Pept 348 pg/mL (0-450); Thyroid Stimulating Hormone 2.38 uIU/mL (0.27-4.20)
--- NOTE | 2021-04-03 19:48 | PC.NURSE ---
Dr Souza on the floor presently. Discussed plan for this patient. Will watch troponins closely. If continue to elevate will contact doctor for possible left heart catheterization tonight. Due to decreased SBP 90s-low 100s with hold nitroglycerin drip for now and start nitropaste 0.5in topically. RBVO
--- NOTE | 2021-04-03 19:57 | PC.NURSE ---
Patient received Lovenox 54mg at 1855 with next dose of 60mg due at [address]. [address] Souza and received okay to not administer the 1937 dose of Lovenox.
[2021-04-03] MEDS: nitroglycerin 1 gm/inch oint Pkt 0.5 INCH TOPICAL (20:17)
[2021-04-03] MEDS: metoprolol succinate ER (24 HR) 25 mg Tablet 12.5 MG PO (20:26)
--- NOTE | 2021-04-03 20:27 | PC.NURSE ---
Addendum entered by Rosamaria Hidalgo RN 04/03/21 20:58: Dr Olmedo notified. Original Note: Lipitor and metoprolol given prior to discontinued.
--- NOTE | 2021-04-03 20:35 | P.CONIM_ITS ---
Providers/Reason For Consult Consulting Physician/Specialty*: Javier Souza MD/ Cardiology Reason for Consult*: NSTEMI Requesting Physician: Dr Nielson Attending Physician: Alfredo Olmedo MD Primary Care Provider: Kassy Michel MD History of Present Illness History of Present Illness Deedee Mcneill is a 80 year old female with past medical history of hypertension and hypothyroidism has presented to the hospital with complaints of nausea, chest tightness and dizziness. According to patient at around 11 AM she noted nausea and was very dizzy. She had to sit down which resolved the symptoms. However she is still having tightness in the jaw. Her initial troponin was 635. She had similar episode on Monday when she was raking leaves on patio when she had chest tightness and felt dizzy. Initial EKG has incomplete right bundle branch block. Q waves noted in inferior leads. No prior significant cardiac history. Review of Systems Const: Denies: fever(s) Eyes: Denies: change in vision ENMT: Denies: throat pain Card: Reports: chest pain and pre-syncope Resp: Denies: dyspnea GI: Reports: nausea and constipation : Denies: flank pain Musc: Denies: neck pain Skin/Breast: Denies: rash Neuro: Denies: headache(s) Psych: Denies: anxiety Endo: Denies: polyuria Darrell/Lymph: Denies: easy bruising All/Imm: Denies: urticaria Meds/Allergies Home Medications and Allergies Home Medications Medication Instructions Recorded Confirmed Last Taken Type trazodone 50 mg tablet 100 mg PO BEDTIME tab 11/19/19 04/03/21 04/02/21 History hydrochlorothiazide 12.5 mg PO QAM 07/10/20 04/03/21 04/02/21 History Calcium + D 1 tab PO BID 04/03/21 04/03/21 Unknown History Fish Oil 1 cap PO BID 04/03/21 04/03/21 Unknown History Vitamin C 1 tab PO BID 04/03/21 04/03/21 Unknown History levothyroxine 50 mcg PO DAILY@22 04/03/21 04/03/21 04/02/21 History multivitamin 1 tab PO DAILY 04/03/21 04/03/21 Unknown History turmeric 400 mg PO BID 04/03/21 04/03/21 Unknown History zinc 1 cap PO DAILY 04/03/21 04/03/21 Unknown History Allergies Allergy/AdvReac Type Severity Reaction Status Date / Time penicillamine Allergy ALGY-Rash Verified 02/02/21 10:47 Penicillins Allergy Unknown Verified 04/03/21 17:47 Sulfa (Sulfonamide Allergy ALGY-Rash Verified 04/03/21 17:47 Antibiotics) Current Medications Current Medications Generic Name Dose Route Start Last Admin Trade Name Freq PRN Reason Stop Dose Admin Nitroglycerin 0.5 inch 04/03/21 20:00 04/03/21 20:17 Nitroglycerin 1 Gm/Inch Oint Pkt TOPICAL 0.5 inch Q6H JLUIS Administration PFSH Acute PFSH: Medical History (Updated 04/04/21 @ 08:05 by Javier Souza M.D) Closed fracture of right wrist Hypertension Ingrown toenail of left foot Insomnia Onychomycosis of toenail Thyroid disease Surgical History H/O section Family History Grandfather Cancer Mother Hypertension Denies family history of Diabetes CAD (coronary artery disease) Clotting disorder Dementia Hyperlipidemia Psychiatric illness Chronic kidney disease (CKD) Suicide Anesthesia complication Bleeding disorder Family history of premature coronary artery disease Lung disease Stroke Social History Smoking and tobacco status: never smoked Alcohol intake: never Vitals/I&O/Wt Last Vital Signs Temp 97.7 F 04/03/21 20:14 Pulse 81 04/03/21 20:24 Resp 21 H 04/03/21 20:14 BP 108/72 04/03/21 20:14 Pulse Ox 100 04/03/21 20:14 04/03/21 04/03/21 04/03/21 06:59 14:59 22:59 Intake Total 1000 / 1000 Balance 1000 / 1000 Weight last 48 hrs Weight 120 lb Physical Exam Narrative: EXAM NARRATIVE: GENERAL: Patient is alert, awake and oriented x3. [] NECK: No jugular vein distension. [] HEENT: No cyanosis. No icterus. No pallor. [] HEART: Regular S1 and S2. No murmur, rub or gallop. [] LUNGS: Clear to auscultate bilaterally. [] ABDOMEN: Soft, nontender and nondistended. Positive bowel sounds. No guarding, rebound or tenderness. [] CENTRAL NERVOUS SYSTEM: Grossly nonfocal. [] EXTREMITIES: Lower extremities with 1+ edema bilaterally. Pulses palpable in the lower extremities, both dorsalis pedis and posterior tibial. [] A&P Assessment and plan (1) NSTEMI (non-ST elevated myocardial infarction): Status: Acute (2) PVD (peripheral vascular disease): Status: Acute (3) Hypertension: Status: Acute Patient has presented with chest tightness symptoms along with significantly elevated troponin levels. We will trend troponins Started on ACS protocol. Aspirin, Plavix and Lovenox. Order echocardiogram. N.p.o. past midnight. We will plan for coronary angiogram in the morning. Thank you for involving us with the care of this patient. We will continue to follow. Please call with questions. Coding Level of Care Code Acute Fence Erector Supervisor for Ravi Osuna Diagnoses NSTEMI (non-ST elevated myocardial infarction) I21.4 PVD (peripheral vascular disease) I73.9 Hypertension I10
[2021-04-03 21:02] LABS: Troponin 5 2HR Delta 9.1 ABS# (0-10)
[2021-04-03 21:04] LABS: Troponin 5 2HR 640.1 ng/L (0-10)
[2021-04-03 21:12] LABS: D Dimer 0.63 ug/mIFEU (0-0.59)
--- NOTE | 2021-04-03 21:12 | PC.NURSE ---
Addendum entered by Rosamaria Hidalgo RN 04/03/21 21:59: Dr Olmedo has been informed of [facility] Original Note: Informed Dr Souza of patient 2hour troponin of 640.1 with 9.1 increase from baseline. Received telephone orders to schedule [facility] for 0800. RBVO. Informed and faxed information to house manager for scheduling.
[2021-04-03] MEDS: levothyroxine 50 mcg Tablet PO (21:23)
[2021-04-03] MEDS: atorvastatin 40 mg Tablet 80 MG PO (21:23)
[2021-04-03] MEDS: sodium chloride 0.9% 1,000 ML 50 ML IV (22:20)
[2021-04-03] MEDS: acetaminophen 325 mg Tablet PO (23:10)
--- NOTE | 2021-04-03 23:15 | PC.NURSE ---
Addendum entered by Rosamaria Hidalgo RN 04/03/21 23:21: Patient denies dizziness or lightheadedness. Denies any symptoms of decreased blood pressure. Does c/o chest pressure with neck pain/pressure as well. Nitropaste remains in place for now. Dr Olmedo is aware. Original Note: Informed Dr Olmedo of decreased BP and received instructions to increased NS to 100ml/hr which is done now. Patient c/o headache. Dr Olmedo placed order for Tylenol which was given as ordered. Monitoring BP q1hour
--- NOTE | 2021-04-03 23:22 | ECG_ITS ---
[facility] Test Date: 2021-04-04 Pat Name: Deedee Mcneill Department: Room: 105 Gender: Female Flower Picker: [email or web address] BURROWS: 1940 Requested By: Laney Griffith Order Number: [id number] Jeff MD: Javier Souza M.D. Measurements Intervals [place] Rate: 64 P: 77 NC: 167 QRS: 86 QRSD: 86 T: 84 QT: 407 QTc: 420 Interpretive Statements SINUS RHYTHM WITH OCCASIONAL SUPRAVENTRICULAR PREMATURE COMPLEXES POSSIBLE RIGHT VENTRICULAR CONDUCTION DELAY [RSR (QR) IN V1/V2] Compared to ECG 04/03/2021 19:09:05 Sinus arrhythmia no longer present ST (T wave) deviation no longer present Electronically Signed On 04-04-2021 16:06:02 CDT by Javier Souza M.D. [id number]
--- NOTE | 2021-04-03 23:37 | PC.NURSE ---
Received instruction from Dr Olmedo to remove nitropaste from patient due to decreased blood pressures. Instructed patient to inform RN if chest pain/pressure seems to worsen. Patient verbalized complete understanding. Provided reassurance to patient that she was being closely monitored.
[2021-04-04] VITALS (100 sets, daily range): BP systolic 75–126; BP diastolic 48–77; PULSE 52–109; RESP 6–27; TEMP 36.3–36.8; O2SAT 91–99
[2021-04-04 00:31] LABS: Troponin 5 6HR Delta -14.5 ng/L (0-12)
[2021-04-04 00:32] LABS: Troponin 5 6HR 616.5 ng/L (0-10)
--- NOTE | 2021-04-04 01:12 | PC.NURSE ---
Informed Dr Olmedo of decreasing BP with decreasing MAP. Patient currently has NS at 100ml/hr. Doctor to place orders.
[2021-04-04] MEDS: sodium chloride 0.9% 1,000 ML 999 ML IV (01:23)
--- NOTE | 2021-04-04 01:42 | PC.NURSE ---
Patient receiving 1L bolus at this time. BP remains decreased. Patient denies any symptoms presently except for increased SOB with exertion. Patient currently SpO2 and 93%. Applied O2 at 2L via NC for patient comfort. Monitoring BP frequently.
[2021-04-04 01:52] LABS: Blood Urea Nitrogen 18 mg/dL (8-23); Calcium 8.4 mg/dL (8.5-10.5); Carbon Dioxide 21 mmol/L (22-29); Chloride 108 mmol/L (98-107); Glucose 92 mg/dL (65-115); Osmolality Calculated 292 mOsm/kg (285-295); Sodium 140 mmol/L (136-145)
[2021-04-04 01:54] LABS: Anion Gap 14.9 (5-19); Potassium 3.9 mmol/L (3.5-5.1)
--- NOTE | 2021-04-04 02:38 | PC.NURSE ---
Informed Dr Olmedo of continued decrease in BP and MAP. Patient remains asymptomatic. Monitoring BP every 15min presently. Received instruction to monitor and inform doctor if continues to drop or patient becomes symptomatic.
[2021-04-04] MEDS: diphenhydrAMINE 50 mg Capsule PO (06:57)
--- NOTE | 2021-04-04 06:59 | PC.NURSE ---
Clarified Lovenox order with Dr Souza and was informed to hold the 0700 dose. Patient is going for left heart catheterization at 0800 this morning.
--- NOTE | 2021-04-04 07:32 | XACV_ITS ---
Exam Room: [facility] Ht: 170 cm Wt: 54 kg BSA: 1.60 m2 Gender: Female : 1940 Any Known Allergies: Sulfa Exam Priority: Routine Procedure(s): Procedure Description: Diagnostic procedure Procedure Description: Left Heart Catheterization Procedure Description: Peripheral Cath Diagnostic Procedure Procedure Description: Abdominal aortic angiography Procedure Description: Miscellaneous Procedure Description: ACT Procedure Description: Coronary Angiography Procedure Description: Pressure Wire Diagnostic Cath Status: Urgent Diagnostic Findings * No disease noted in the Left Anterior Descending, Right, or Circumflex coronary arteries. * Separate ostia of the LAD and LCx arteries. * First diagonal artery has an ostial 50% narrowing. 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 * Coronary angiography shows right dominance. Interventional Findings * Procedure detail: We engaged the left main artery with XB 3.5 guide catheter. FFR wire was used to cross the lesion in the ostial diagonal artery. IV adenosine was used to induce hyperemia. FFR was non ischemic. FFR wire was removed and final angiogram was performed. Sheath angiogram showed possible decreased flow in the external iliac artery. In order to assess that,we obtained access in the contralateral common femoral artery and abdominal angiogram was performed that showed patent arteries. Sheaths were sutured in place for removal later. Abdominal Diagnostic Findings Distal abdominal aorta: Patent Right common iliac artery: Patent Right external iliac artery: Patent and is significantly tortuous vessel Right internal iliac artery: Patent Right common femoral artery: Patent Proximal right SFA: Patent Right proximal right profunda femoris artery: Patent Left right common iliac artery: Patent Left external iliac artery: Patent Left internal iliac artery: Patent Left common femoral artery: Patent Proximal left profunda femoral artery: Patent Proximal left SFA: Patent . Conclusions No disease noted in the Left Anterior Descending, Right, or Circumflex coronary arteries. Moderate first diagonal artery disease. FFR is non-ischemic. Patent, iliac arteries. Normal abdominal angiogram. Presentation likely secondary to microvascular dysfunction vs coronary spasm. Recommendations Transfer back to CSU. Aggressive risk factor control. Outpatient follow up in cardiology in 4 weeks. Pressures Phase:Rest AO : 91 / 47 ( 65 ) @ 7:28:00 AM 81 / 51 ( 64 ) @ 7:35:00 AM 89 / 47 ( 64 ) @ 7:40:00 AM 72 / 41 ( 55 ) @ 7:49:00 AM 103 / 30 ( 47 ) @ 8:16:00 AM 101 / 20 ( 52 ) @ 8:16:00 AM 95 / 52 ( 70 ) @ 8:26:00 AM LV : 112 / 11 / 38 @ 8:14:00 AM 104 / 7 / 31 @ 8:15:00 AM Hemodynamic Data Phase:Rest AO : 91.0 / 47.0 ( 65.0 ) @ 7:28:00 AM 81.0 / 51.0 ( 64.0 ) @ 7:35:00 AM 89.0 / 47.0 ( 64.0 ) @ 7:40:00 AM 72.0 / 41.0 ( 55.0 ) @ 7:49:00 AM 103.0 / 30.0 ( 47.0 ) @ 8:16:00 AM 101.0 / 20.0 ( 52.0 ) @ 8:16:00 AM 95.0 / 52.0 ( 70.0 ) @ 8:26:00 AM Clinical Evaluation EBL: 5mL-10mL Procedural Details Procedure Consent Obtained. Pre-Procedure Time Out. Identified patient by full name and date of as verbalized by the patient/guarantor. Does the consent match the physician's order: Yes. Accurate & Complete Informed Consent: Yes. Inpatient/Outpatient History & Physical on Chart: Yes. If H&P is completed, is and addenduem needed: No; If yes, is the addendum complete: N/A. Visualize and Verify Site with Patient/Guarantor: N/A. Relevant Radiology Images available: N/A. Pre-op teaching completed and patient verbalized understanding. The risks, benefits, and alternatives of sedation and/or procedure were discussed by physician. The patient agrees to continue. Procedure started. [facility] Clinical Fraility Score: 3: Managing Well. Obstetrical Nurse Indications: ACS <= 24 hours. Chest Pain Symptom Assessment: Typical Angina Symptoms. Cardiovascular Instability: No. Correct patient, site and procedure confirmed by cath team. PERRLA. Strong, equal hand instructor looping bilaterally. Lungs clear x 5 lobes. IV Site on Arrival: 20 gauge in the left anticubital. IV Site on Arrival: 20 gauge in the right anticubital. IV Fluids: 0.9% NaCl at KVO. 0 mL infused prior to skilled labor. Pre Procedural Pulses: bilateral radial was 3+. Oxygen started at 2liters/min via nasal canula. Physician arrived. Equipment: 6F - Femoral. Cardiac Cath Pack. ACIST Manifold Kit Model BT 2000. Heparinized Saline (2 units/mL), 1000 mL bag. Kit, Micropuncture. bilateral groins was prepped with chloroprep then draped in the usual sterile fashion. Baseline sample Acquired. HR: 57 BPM. Physician scrubbed in. Immediate Pre-Procedure Time Out. Correct Patient: Yes; Correct Procedure: Yes; Correct Site: Yes; Correct Patient Position: Yes; Correct Supplies: Yes; Dried Flammable Prep: Yes; Blood Products Available: N/A;. Lidocaine 1% infiltrated to the right groin. Arterial access obtained with micropuncture set. A JJ 6F JL4 100cm Diagnostic Catheter was advanced over the wire and used for Left coronary angiography. Catheter removed over the standard wire. A 5 maltese JL5 catheter in over wire. Multiple views taken of left coronary artery. Catheter removed over the standard wire. Inventory is CRD 6FR XB4 GUIDE. A CRD 6F JR4 100cm Diagnostic Catheter was advanced over the wire and used for Right coronary angiography. Catheter removed over the standard wire. 6 maltese XB 4 guide catheter was inserted over the wire. FFR guidewire was advanced through the guide catheter to. Wire out. Guide catheter out. 6 maltese XB 3.5 guide catheter was inserted over the wire. FFR guidewire was advanced through the guide catheter to lesion in the diaganol. Pt has seperate ostia for circumflex artery. An FFR value of 0.97 was obtained for a lesion located at 1st Diag. Wire out. Guide catheter out. A 6 maltese Angled Pig catheter in over wire. EDP Sample taken: LV 112/11,38; HR: 57 BPM; SpO2: Off%. EDP Sample taken: LV 104/7,31; HR: 62 BPM; SpO2: 57%. Pullback taken: LV Off; AO Off; Mean: , Peak to Peak: , SEP: ; HR: 59 BPM; SpO2: Off%. Catheter removed over the exchange wire. A Right femoral angiogram (hand injection) was performed to determine safe placement of closure device. Pt has poor peripheral perfusion to fingers (Raynauds), unable to maintain sat reading. A Suture was successful obtaining hemostatsis at the Right Femoral artery insertion site. Hand injection. Inventory is TR Glidewire Angled Stiff Shaft .035 260cm. Attempt to use glidewire for angioseal placement. Unable to properly assess femoral artery for closure device. Physician will gain left femoral artery access. Lidocaine 1% infiltrated to the left groin. Arterial access obtained with micropuncture set. A 5 maltese Angled Pig catheter in over wire. Catheter out. Glidewire inserted. A 5 maltese Angled Pig catheter in over glidewire. Wire out. Abdominal aortogram performed in AP @ 10 mL/sec for a total of 30 mL. Catheter removed over the glide wire. ACT drawn. Results 271 seconds. Therapeutic limits - pre-heparin administration 90-150 seconds and monitoring heparin during a vascular procedure >250 seconds. Physician scrubbed out. A Suture was successful obtaining hemostatsis at the Left Femoral artery insertion site. Sheath(s) sutured into position with 2-0 silk and sterile 4x4's and Op-site applied over the site. No oozing or signs and symptoms of hematoma noted. Arterial sheaths flushed and connected to tranducer and pressure bag with heparinized saline. Post Procedure: Pulses reassessed and unchanged. PERRLA. Strong, equal hand instructor looping bilaterally. No VTE prophylaxis required. Medication's Wasted: Lidocaine 1% = 18 mL. Medication's Wasted: Heparin = 4000 units. Medication's Wasted: Nitro = 50 mg. Medication's Wasted: Other = adenosine 73.95 mg. Total IV fluids: 250 mL. Contrast type used: Omnipaque 300 mgI/mL, 500 mL bottle. Post-op diagnosis: moderate diagonal artery stenosis. Complications: none. Estimated blood loss: 5mL-10mL. Procedure completed. Patient transferred by bed to 1st floor. Vital chart was stopped. Access Site Site: Right Femoral artery Sheath Size: 6 Fr Hemostasis Method: Suture Hemostasis Success: Successful Site: Left Femoral artery Sheath Size: 5 Fr Hemostasis Method: Suture Hemostasis Success: Successful Procedure Medications Start: 8:13 AM Stop: 8:13 AM Medication: Versed Amount: 1 mg Route: I.V. Start: 8:13 AM Stop: 8:13 AM Medication: Fentanyl Amount: 50 mcg Route: I.V. Start: 8:41 AM Stop: 8:41 AM Medication: Heparin Amount: 7000 units Route: I.V. Start: 9:08 AM Stop: 9:08 AM Medication: Versed Amount: 1 mg Route: I.V. Start: 9:08 AM Stop: 9:08 AM Medication: Fentanyl Amount: 50 mcg Route: I.V. I, the attending physician, have reviewed and verified all procedure medications. Yes, all medications given per verbal order History/Risk Factors Hypertension: Yes Dyslipidemia: No Peripheral Arterial Disease (PAD): No Myocardial Infarction (ND): No Obesity: No Renal Disease: No Prior Interventions PCI: No CABG: No Valve Surgery: No Report Signatures Finalized by Javier Souza MD on 04/13/2021 07:58 PM
--- NOTE | 2021-04-04 08:08 | W.PM.OPSUD ---
Surgery/Procedure H&P Update DATE OF PROCEDURE: April 04, 2021 DATE H&P PERFORMED: 04/03/21 H&P UPDATE INFORMATION: I have reviewed H&P completed within last 30 days, I have examined patient prior to procedure and No changes to prior documentation PREOP DIAGNOSIS: NSTEMI PRIMARY INDICATION FOR PROCEDURE: NSTEMI PLANNED PROCEDURE: Operation Date: 04/04/21 08:00 Proposed Procedures p Cardiac Catheterization(Left) - Javier Souza M.D Possible percutaneous coronary intervention PATIENT REASSESSED PRIOR TO SEDATION, WITH NO CHANGE NOTED: Yes PHYSICAL EXAM: alert, oriented x 3, clear to auscultation bilaterally and regular rate & rhythm AIRWAY EVAL/ANESTHESIA PLAN: normal airway, ASA III, Monitored Anesthesia, Local Anesthesia, Risks, benefits & alternatives of sedation and/or procedure discussed and Patient agrees to continue as planned
--- NOTE | 2021-04-04 10:01 | P.PN_ITS ---
Subjective Subjective: Interval history: Patient underwent coronary angiogram today. She has separate ostia for LCx and LAD. moderare disease of the first diagonal artery that undwent FFR and was non ischemc. Otherwise no significant CAD. Vitals/I&O/Wt Last Vital Signs Temp 97.3 F L 04/04/21 07:33 Pulse 64 04/04/21 07:33 Resp 19 H 04/04/21 07:33 BP 126/66 04/04/21 07:33 Pulse Ox 98 04/04/21 07:33 04/03/21 04/04/21 04/04/21 22:59 06:59 14:59 Intake Total 1964.7 / 1964.7 1247.500 / 3213.200 Output Total 300 / 300 Balance / 1964. 947.500 / 2913.200 Weight last 48 hrs Weight 120 lb Physical Exam Narrative: EXAM NARRATIVE: GENERAL: Patient is alert, awake and oriented x3. [] NECK: No jugular vein distension. [] HEENT: No cyanosis. No icterus. No pallor. [] HEART: Regular S1 and S2. No murmur, rub or gallop. [] LUNGS: Clear to auscultate bilaterally. [] ABDOMEN: Soft, nontender and nondistended. Positive bowel sounds. No guarding, rebound or tenderness. [] CENTRAL NERVOUS SYSTEM: Grossly nonfocal. [] EXTREMITIES: Lower extremities with 1+ edema bilaterally. Pulses palpable in the lower extremities, both dorsalis pedis and posterior tibial. [] Data : 04/05/21 05:04 04/05/21 05:04 A&P Assessment and plan (1) NSTEMI (non-ST elevated myocardial infarction): Status: Acute (2) PVD (peripheral vascular disease): Status: Acute (3) Hypertension: Status: Acute Patient had presented with chest tightness and significantly elevated troponins. Coronary angiogram did not reveal signifcant CAD. ECHO showed normal LV systolic function. Possible etiology is coronary spasm. Can start on low dose amlodipine if bp tolerates Post coronary angiogram, she had a vagal event in her room where heart rates dropped into 40s and she was hypotensive. Received IV fluids and atropine and that improved her hemodynamics. Hgb is low, likely dilutional but will need to observe closely. Type and screen done for possible transfusion if needed. Thank you for involving us with the care of this patient. We will continue to follow. Please call with questions. Attestations Medical Necessity Statement*: Care expected to cross 2 midnights. 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
--- NOTE | 2021-04-04 11:41 | PM.PN ---
Subjective Subjective: Interval history: Patient was seen and examined currently denies any chest pain, shortness of breath. She is complaining of back pain, as well as leg discomfort. Vitals/I&O/Wt Last Vital Signs Temp 97.3 F L 04/04/21 07:33 Pulse 64 04/04/21 07:33 Resp 19 H 04/04/21 07:33 BP 126/66 04/04/21 07:33 Pulse Ox 98 04/04/21 07:33 04/03/21 04/04/21 04/04/21 22:59 06:59 14:59 Intake Total 1247.500 / 3213.200 Output Total 300 / 300 Balance 947.500 / 2913.200 Weight last 48 hrs Weight 54.431 kg Physical Exam Const: COMMON NORMALS: patient oriented x3 HENMT: COMMON NORMALS: normocephalic and atraumatic HEAD & SCALP: normocephalic and atraumatic Chest: CHEST: Yes Symmetrical chest wall rise Resp: COMMON NORMALS: clear to auscultation bilaterally EFFORT & INSPECTION: Yes symmetric chest movement AUSCULTATION: clear to auscultation bilaterally Cardio: COMMON NORMALS: regular rate, regular rhythm, S1 normal heart sound present, S2 normal heart sound present, No gallops present (Cardio), No murmurs present (Cardio), No rub (Cardio) and Peripheral pulses 2+ throughout RATE: regular rate RHYTHM: regular rhythm HEART SOUNDS: S1 normal heart sound present and S2 normal heart sound present PERIPHERAL PULSES: Peripheral pulses 2+ throughout GI: COMMON NORMALS: Normal to inspection, nondistended, normoactive bowel sounds present, Soft to palpation, non-tender, No hepatosplenomegaly present and no masses AUSCULTATION: Yes normoactive bowel sounds PALPATION: Yes Soft to palpation and Yes No hepatosplenomegaly present RECTAL EXAM: deferred Extremity: COMMON NORMALS: no clubbing, cyanosis or edema and no pedal edema Neuro: COMMON NORMALS: patient oriented x3 Data : 04/04/21 16:57 04/04/21 00:00 A&P Assessment and plan (1) NSTEMI (non-ST elevated myocardial infarction): Status: Acute (2) FANI (acute kidney injury): Status: Acute Additional A&P Information NSTEMI: Troponin: Baseline troponin 631, 2-hour troponin: 640, 2-hour delta:9.1, 6-hour troponin: 616, 6-hour delta: -14.5 EKG T wave inversion lead III, aVF, incomplete right bundle branch block, upsloping of T waves in lateral leads aspirin, Plavix high-dose statin and Toprol, Dr. García has evaluated her and recommended nitro gtt because of her neck stiffness and EKG changes, however we will monitor with telemetry on CSU if her mean arterial pressure reduces with nitroglycerin as we are seeing changes in inferior leads We will keep her n.p.o. ACS protocol initiated Check D-dimer: 0.63 2D echo:LV systolic function is normal with EF of 50-55% Grade 1 diastolic dysfunction Mild tricuspid regurgitation. TSH:2.38 Dr. García consulted Acute kidney injury Patient at home takes hydrochlorothiazide levothyroxine and multivitamins Clinically not fluid overloaded No signs of UTI We will keep her on normal saline at 50 cc/h, monitor BMP urine output and creatinine for now, etiology of FANI unclear Hypertension: Currently systolic blood pressure is 97 mmHg, hold hydrochlorothiazide, TSH is normal Hypothyroidism: Continue levothyroxine N.p.o. DVT prophylaxis not indicated currently on therapeutic dose of Lovenox Full code Attestations Medical Necessity Statement*: Patient needs to be in hospital for management of NSTEMI. 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
[2021-04-04] MEDS: atropine 1 mg/mL SDV 1 mL 0.5 MG IVP (12:47)
[2021-04-04] MEDS: atropine 0.1 mg/mL Syr 10 mL 0.5 MG IVP (12:50)
[2021-04-04] MEDS: ondansetron 2 mg/ML SDV 2 mL 4 MG IVP (12:54)
[2021-04-04] MEDS: fentaNYL 50 mcg/mL INJ 2mL 12.5 MCG IVP (13:00)
[2021-04-04 13:35] LABS: Basophils # 0.1 10^3/uL (0.0-0.1); Basophils % 1.1 %; Eosinophils # 0.1 10^3/uL (0.0-0.8); Eosinophils % 1.1 %; Hematocrit 27.3 % (37.0-47.0); Hemoglobin 8.7 g/dL (11.5-15.3); Lymphocytes # 1.5 10^3/uL (0.8-4.8); Lymphocytes % 31.5 %; Mean Corpuscular HGB Conc 31.9 g/dL (30.0-36.0); Mean Corpuscular Hemoglobin 30.2 pg (28.0-34.0); Mean Corpuscular Volume 94.8 fL (81-99); Mean Platelet Volume 11.6 fL (7.4-10.4); Monocytes # 0.5 10^3/uL (0.2-0.9); Monocytes % 10.1 %; Neutrophils # 2.58 10^3/uL (1.8-7.7); Neutrophils % 55.6 %; Nucleated Red Blood Cells % 0 %; Platelet Count 152 10^3/cmm (130-400); Red Blood Count 2.88 10^6/uL (4.1-5.3); Red Cell Distribution Width 13.2 % (12.1-15.1); White Blood Count 4.6 10^3/uL (4.0-10.0)
[2021-04-04 14:38] LABS: Partial Thromboplastin Time 194.6 SECONDS (23.9-36.7)
--- NOTE | 2021-04-04 15:32 | PC.NURSE ---
At 12:45 pm patient became suddenly nauseated. Her HR dropped to 48 and systolic BP to 80. Patient denies chest pain. Call placed to Dr. Souza to report vital signs and swelling with oozing at the left groin site. Dr. Souza arrived and ordered 250 ml NS fluid bolus, atropine 0.5 mg IV, zofran and fentqanyl 12.5mg IVP. The IV/PIID in patient's left arm was out of place and was bleeding. IV fluid bolus started in IV site in left ACF. Prior to giving fentanyl dose, patient's IV in right ACF infiltrated. 3 attempts total by myself and one other RN and we had IV access in right upper arm (22g) Restarted fluid bolus and gave 12.5 mcg fentanyl.
[2021-04-04 17:17] LABS: Basophils % 0.4 %; Eosinophils % 0.3 %; Hematocrit 29.7 % (37.0-47.0); Lymphocytes # 0.8 10^3/uL (0.8-4.8); Mean Corpuscular HGB Conc 30.3 g/dL (30.0-36.0); Mean Corpuscular Hemoglobin 30.3 pg (28.0-34.0); Mean Platelet Volume 11.3 fL (7.4-10.4); Monocytes # 0.6 10^3/uL (0.2-0.9); Monocytes % 7.9 %; Neutrophils # 5.93 10^3/uL (1.8-7.7); Neutrophils % 79.9 %; Nucleated Red Blood Cells % 0 %; Platelet Count 158 10^3/cmm (130-400); Red Blood Count 2.97 10^6/uL (4.1-5.3); Red Cell Distribution Width 13.2 % (12.1-15.1); White Blood Count 7.4 10^3/uL (4.0-10.0)
[2021-04-04 17:37] LABS: Partial Thromboplastin Time 31.1 SECONDS (23.9-36.7)
[2021-04-04] MEDS: fentaNYL 50 mcg/mL INJ 2mL IVP (18:06)
[2021-04-04] MEDS: sodium chloride 0.9% 1,000 ML 50 ML IV (18:07)
--- NOTE | 2021-04-04 19:38 | USCV_ITS ---
Deedee Mcneill Age: 80 Gender: F : 1940 Exam Date: 04/04/2021 14:20 Ordering Phys: Alfredo Olmedo MD Technologist: Carmina Nicholson [place] [facility] [place]: [place]I BP: 90 / 53 HR: 63 Rhythm: Sinus Technical Quality: Adequate MEASUREMENTS (Male / Female) Normal Values 2D ECHO LV Chamber Size 3.5 cm RV Chamber Size 2.9 cm LV Ejection Fraction MOD 2C 57.6 % LV Ejection Fraction 2C AL 57.6 % LA Diameter 3.3 cm LA Width 3.1 cm LA Height 4.2 cm RA Width 2.7 cm RA Height 2.9 cm M-MODE LV Diastolic Diameter MM 3.1 cm 4.2 - 5.9 / 3.9 - 5.3 cm LV Systolic Diameter MM 1.7 cm LV Ejection Fraction MM Teich 78.5 % IVS Diastolic Thickness MM 1.0 cm 0.6 - 1.0 / 0.6 - 0.9 cm IVS Systolic Thickness MM 1.4 cm LVPW Diastolic Thickness MM 1.1 cm 0.6 - 1.0 / 0.6 - 0.9 cm LVPW Systolic Thickness MM 1.8 cm Aortic Annulus Diameter 2.7 cm LA Ao Ratio MM 1.2 MV E Point Septal Separation 0.3 cm DOPPLER AV Peak Velocity 105.0 cm/s LVOT Peak Velocity 105.0 cm/s MV Area PHT 4.1 cm squared Mitral E to A Ratio 0.8 MV E' Velocity 30.5 cm/s Mitral E to MV E' Ratio 7.2 Mitral E to LV E' Lateral Ratio 6.3 Mitral E to LV E' Septal Ratio 8.5 TR Peak Velocity 210.3 cm/s TR Peak Gradient 17.7 mmHg TR Mean Velocity 156.4 cm/s TR Mean Gradient 11.2 mmHg TR Velocity Time Integral 56.5 cm TV Peak E Velocity 50.0 cm/s Right Atrial Pressure 3.0 mmHg Pulmonary Artery Systolic Pressu 20.7 mmHg PV Peak Velocity 89.0 cm/s RV Acceleration Time 0.1 s RV Ejection Time 0.3 s RV AcT/ET 0.3 FINDINGS Left Ventricle Normal left ventricular size. LV systolic function is borderline normal with EF of 50-55%. No regional wall motion abnormalities. Grade 1 diastolic function Right Ventricle The right ventricle is normal in size and function. Right Atrium Not well visualized Left Atrium Grossly normal Mitral Valve Structurally normal mitral valve without significant stenosis or prolapse. There is no mitral regurgitation. Aortic Valve Structurally normal aortic valve without significant sclerosis or stenosis. There is no aortic regurgitation. Tricuspid Valve Structurally normal tricuspid valve without significant stenosis. Mild tricuspid regurgitation. RVSP is 20-25mmHg Pulmonic Valve Structurally normal pulmonic valve without significant stenosis. There is no pulmonic regurgitation. Pericardium Normal pericardium without effusion. Aorta Normal ascending aorta dimension. CONCLUSIONS LV systolic function is normal with EF of 50-55% Grade 1 diastolic dysfunction Mild tricuspid regurgitation No comparison studies are available Javier Souza MD (Electronically Signed) Final Date: 04 Apr 2021 17:31 S
[2021-04-04] MEDS: atorvastatin 40 mg Tablet 80 MG PO (21:25)
[2021-04-04] MEDS: acetaminophen 325 mg Tablet PO (21:26)
[2021-04-04] MEDS: levothyroxine 50 mcg Tablet PO (21:26)
[2021-04-05] VITALS (23 sets, daily range): BP systolic 90–120; BP diastolic 52–77; PULSE 60–91; RESP 16–28; TEMP 36.4–36.8; O2SAT 91–98
[2021-04-05 06:13] LABS: Basophils # 0.1 10^3/uL (0.0-0.1); Basophils % 0.7 %; Eosinophils # 0.1 10^3/uL (0.0-0.8); Eosinophils % 1.2 %; Hematocrit 24.7 % (37.0-47.0); Hemoglobin 7.8 g/dL (11.5-15.3); Lymphocytes # 1.2 10^3/uL (0.8-4.8); Lymphocytes % 15.3 %; Mean Corpuscular HGB Conc 31.6 g/dL (30.0-36.0); Mean Corpuscular Hemoglobin 30.5 pg (28.0-34.0); Mean Corpuscular Volume 96.5 fL (81-99); Mean Platelet Volume 12.1 fL (7.4-10.4); Monocytes # 0.9 10^3/uL (0.2-0.9); Monocytes % 12.3 %; Neutrophils # 5.38 10^3/uL (1.8-7.7); Neutrophils % 70.2 %; Nucleated Red Blood Cells % 0 %; Platelet Count 164 10^3/cmm (130-400); Red Blood Count 2.56 10^6/uL (4.1-5.3); Red Cell Distribution Width 13.1 % (12.1-15.1); White Blood Count 7.7 10^3/uL (4.0-10.0)
[2021-04-05 06:33] LABS: Anion Gap 6.9 (5-19); Blood Urea Nitrogen 16 mg/dL (8-23); Calcium 7.3 mg/dL (8.5-10.5); Carbon Dioxide 24 mmol/L (22-29); Chloride 107 mmol/L (98-107); Glucose 86 mg/dL (65-115); Osmolality Calculated 278 mOsm/kg (285-295); Potassium 3.9 mmol/L (3.5-5.1); Sodium 134 mmol/L (136-145)
[2021-04-05] MEDS: isosorbide mononitrate ER 30 mg Tablet PO (08:26)
[2021-04-05] MEDS: metoprolol succinate ER (24 HR) 25 mg Tablet 12.5 MG PO (08:26)
[2021-04-05] MEDS: clopidogrel 75 mg Tablet PO (08:26)
[2021-04-05] MEDS: nitroglycerin 1 gm/inch oint Pkt 0.5 INCH TOPICAL (08:37)
--- NOTE | 2021-04-05 09:36 | PM.PN ---
Subjective Subjective: Interval history: Patient is doing well. No complaints of chest pain. Did have dizziness on walking. Her Hgb has dropped to 7.8. She is hemodynamically stable Vitals/I&O/Wt Last Vital Signs Temp 98.2 F 04/05/21 07:33 Pulse 91 04/05/21 07:33 Resp 17 04/05/21 07:33 BP 117/77 04/05/21 07:33 Pulse Ox 96 04/05/21 07:33 04/04/21 04/05/21 04/05/21 22:59 06:59 14:59 Intake Total 370 / 1242.5 120 / 1362.5 240 / 240 Output Total 420 / 720 Balance -50 / 522.5 120 / 642.5 240 / 240 Weight last 48 hrs Weight 120 lb Physical Exam Narrative: EXAM NARRATIVE: GENERAL: Patient is alert, awake and oriented x3. [] NECK: No jugular vein distension. [] HEENT: No cyanosis. No icterus. No pallor. [] HEART: Regular S1 and S2. No murmur, rub or gallop. [] LUNGS: Clear to auscultate bilaterally. [] ABDOMEN: Soft, nontender and nondistended. Positive bowel sounds. No guarding, rebound or tenderness. [] CENTRAL NERVOUS SYSTEM: Grossly nonfocal. [] EXTREMITIES: Lower extremities with 1+ edema bilaterally. Pulses palpable in the lower extremities, both dorsalis pedis and posterior tibial. [] Data : 04/06/21 04:47 04/06/21 04:47 A&P Assessment and plan (1) NSTEMI (non-ST elevated myocardial infarction): Status: Acute (2) PVD (peripheral vascular disease): Status: Acute (3) Hypertension: Status: Acute Patient had presented with chest tightness and significantly elevated troponins. Coronary angiogram did not reveal signifcant CAD. ECHO showed normal LV systolic function. Possible etiology is coronary spasm. Can start on low dose amlodipine if bp tolerates. Will recommend stopping HCTZ. Can keep on amlodipine 2.5mg and metoprolol 25mg BID as patient has PACs. Hgb is low however hemodynamically stable and no signs of bleeding. Possibly a component of hemodilution with almost receiving 5 liters of fluids since admission. Will recommend transfusing a unit of blood with hgb less than 8. Thank you for involving us with the care of this patient. We will continue to follow. Please call with questions. Attestations Medical Necessity Statement*: Care expected to cross 2 midnights. Coding Level of Care Code Acute Reliability Manager for [facility] Fwd Diagnoses NSTEMI (non-ST elevated myocardial infarction) I21.4 PVD (peripheral vascular disease) I73.9 Hypertension I10
--- NOTE | 2021-04-05 10:10 | PC.NURSE ---
call received from Dr reyes with instructions to stop IV fluids
[2021-04-05 11:27] LABS: Basophils # 0.1 10^3/uL (0.0-0.1); Basophils % 0.6 %; Eosinophils # 0.1 10^3/uL (0.0-0.8); Eosinophils % 0.7 %; Hematocrit 24.3 % (37.0-47.0); Hemoglobin 7.8 g/dL (11.5-15.3); Lymphocytes # 1.2 10^3/uL (0.8-4.8); Lymphocytes % 13.4 %; Mean Corpuscular HGB Conc 32.1 g/dL (30.0-36.0); Mean Corpuscular Hemoglobin 31.2 pg (28.0-34.0); Mean Corpuscular Volume 97.2 fL (81-99); Mean Platelet Volume 11.7 fL (7.4-10.4); Monocytes # 1.1 10^3/uL (0.2-0.9); Monocytes % 11.7 %; Neutrophils # 6.64 10^3/uL (1.8-7.7); Neutrophils % 73.3 %; Nucleated Red Blood Cells % 0 %; Platelet Count 174 10^3/cmm (130-400); Red Cell Distribution Width 13.2 % (12.1-15.1); White Blood Count 9.1 10^3/uL (4.0-10.0)
--- NOTE | 2021-04-05 13:16 | CTR_ITS ---
PROCEDURE INFORMATION: Exam: CT Head Without Contrast Exam date and time: 04/05/2021 1:54 PM Age: 80 years old Clinical indication: Dizziness; Additional info: Persisting dizziness TECHNIQUE: Imaging protocol: Computed tomography of the head without contrast. Radiation optimization: All CT scans at this facility use at least one of these dose optimization techniques: automated exposure control; mA and/or kV adjustment per patient size (includes targeted exams where dose is matched to clinical indication); or iterative reconstruction. COMPARISON: No relevant prior studies available. RADIATION DOSE METRICS: Total DLP (mGy-cm): 718 FINDINGS: Brain: There is diffuse cerebral atrophy and chronic microvascular white matter disease. There is no acute intracranial hemorrhage. Cerebral ventricles: There is mild ex vacuo dilation of the lateral ventricles. The basal cisterns are unremarkable. Paranasal sinuses: The paranasal sinuses are clear. Mastoid air cells: The mastoid air cells are clear. Bones/joints: The calvarium is intact. Soft tissues: The visible extracranial soft tissues are unremarkable. CT/CT head wo con* [id number] IMPRESSION: No acute intracranial abnormality. Radiation Dose CTDIVOL = (mGy): DLP = 718 (mGy-cm)
--- NOTE | 2021-04-05 17:59 | PM.PN ---
Subjective Subjective: Interval history: Hb at 7.8, c/o intermittent feeling of being lightheaded, planned for CT head and PRBC transfusion today Medications: Reviewed: Yes Vitals/I&O/Wt Last Vital Signs Temp 98.0 F 04/05/21 17:07 Pulse 79 04/05/21 17:07 Resp 18 04/05/21 17:07 BP 120/59 04/05/21 17:07 Pulse Ox 97 04/05/21 17:07 04/05/21 04/05/21 04/05/21 06:59 14:59 22:59 Intake Total 120 / 1362.5 1163.333 / 1163.333 350 / 1513.333 Balance 120 / 642.5 1163.333 / 1163.333 350 / 1513.333 Physical Exam Narrative: EXAM NARRATIVE: GEN: Awake, alert and oriented, no acute distress CVS: S1S2 N RS: CTA B/L Abd: Soft, nt/nd , bs+ TRAY LINE SUPERVISOR: no focal neuro deficits Data : 04/05/21 11:04 04/05/21 05:04 A&P Assessment and plan (1) NSTEMI (non-ST elevated myocardial infarction): Status: Acute (2) FANI (acute kidney injury): Status: Acute Additional A&P Information NSTEMI: s/p coronary angiogram separate ostia for LCx and LAD. moderare disease of the first diagonal artery that undwent FFR and was non ischemc. Otherwise no significant CAD. Possible etiology is coronary spasm. aspirin on , Plavix high-dose statin and Toprol, 2D echo:LV systolic function is normal with EF of 50-55% Grade 1 diastolic dysfunction Mild tricuspid regurgitation. TSH:2.38 Appreciate cardiology recommendations Anemia: Hb at 7.8 today, noted to be 13 upon admission, may have had some componenet of hemoconcentration at the time, given c/o dizziness and chets pain, aim to keep HB > 8, transfuse one unit PRBC. Hols ASA for now check FOBT, iron panel , b12 folate Persisting diziness: check CT head, if negative, trial of meclizine Acute kidney injury Patient at home takes hydrochlorothiazide levothyroxine and multivitamins Clinically not fluid overloaded No signs of UTI Hypertension:Currently well controlled Hypothyroidism: Continue levothyroxine DVT prophylaxis : will start lovenox 40 if FOBT negative Full code Attestations Medical Necessity Statement*: CT head, blood transfusion , closely monitor HB Coding Level of Care Code Acute Tutorial Laboratory Supervisor for g Fwd Diagnoses NSTEMI (non-ST elevated myocardial infarction) I21.4 FANI (acute kidney injury) N17.9
[2021-04-05] MEDS: atorvastatin 40 mg Tablet PO (21:07)
[2021-04-05] MEDS: levothyroxine 50 mcg Tablet PO (21:07)
[2021-04-05] MEDS: acetaminophen 325 mg Tablet PO (21:07)
--- NOTE | 2021-04-05 22:38 | USR_ITS ---
PROCEDURE INFORMATION: Exam: US Duplex Lower Extremity Veins, Bilateral Exam date and time: 04/05/2021 8:50 AM Age: 80 years old Clinical indication: Pain; Leg, lower; Right; Prior surgery; Surgery date: Post-operative (0-2 days); Surgery type: Post cath; Additional info: Rule out dvt TECHNIQUE: Imaging protocol: Real-time duplex ultrasound of the extremities with 2-D feliz scale, color Doppler flow and spectral waveform analysis with image documentation. Complete exam focused on the bilateral lower extremity veins. COMPARISON: No relevant prior studies available. FINDINGS: Right deep veins: Unremarkable. The common femoral, femoral, proximal profunda femoral and popliteal veins are patent without thrombus. Normal Doppler waveforms. Normal compressibility and/or augmentation response. Right superficial veins: Saphenofemoral junction is patent without thrombus. Left deep veins: Unremarkable. The common femoral, femoral, proximal profunda femoral and popliteal veins are patent without thrombus. Normal Doppler waveforms. Normal compressibility and/or augmentation response. Left superficial veins: Saphenofemoral junction is patent without thrombus. Soft tissues: Unremarkable. US/[place] [id number] IMPRESSION: No evidence of deep vein thrombosis.
[2021-04-06] VITALS (7 sets, daily range): BP systolic 114–152; BP diastolic 67–80; PULSE 69–80; RESP 13–26; TEMP 36.5–36.8; O2SAT 93–96
[2021-04-06 05:06] LABS: Basophils # 0.1 10^3/uL (0.0-0.1); Basophils % 0.7 %; Eosinophils # 0.1 10^3/uL (0.0-0.8); Hematocrit 25.8 % (37.0-47.0); Hemoglobin 8.4 g/dL (11.5-15.3); Lymphocytes # 1.2 10^3/uL (0.8-4.8); Mean Corpuscular HGB Conc 32.6 g/dL (30.0-36.0); Mean Corpuscular Volume 95.2 fL (81-99); Mean Platelet Volume 11.7 fL (7.4-10.4); Monocytes # 1.2 10^3/uL (0.2-0.9); Monocytes % 16.6 %; Neutrophils # 4.51 10^3/uL (1.8-7.7); Neutrophils % 63.3 %; Nucleated Red Blood Cells % 0 %; Platelet Count 144 10^3/cmm (130-400); Red Blood Count 2.71 10^6/uL (4.1-5.3); Red Cell Distribution Width 13.3 % (12.1-15.1); White Blood Count 7.1 10^3/uL (4.0-10.0)
[2021-04-06 06:09] LABS: Alanine Aminotransferase 9 U/L (0-33); Alkaline Phosphatase 29 IU/L (35-105); Aspartate Amino Transferase 17 U/L (0-32); Blood Urea Nitrogen 11 mg/dL (8-23); Calcium 7.6 mg/dL (8.5-10.5); Carbon Dioxide 24 mmol/L (22-29); Chloride 112 mmol/L (98-107); Globulin 1.7 g/dL (1.3-4.6); Glucose 100 mg/dL (65-115); Iron 45 ug/dL (37-145); Osmolality Calculated 293 mOsm/kg (285-295); Sodium 142 mmol/L (136-145); Total Bilirubin 0.5 mg/dL (0.15-1.2); Total Protein 4.7 g/dL (6.6-8.7)
[2021-04-06 06:12] LABS: Folate Level 15.4 ng/mL (4.8-37.3)
[2021-04-06 06:15] LABS: Vitamin B12 > 2000 pg/mL (232-1245)
[2021-04-06] MEDS: clopidogrel 75 mg Tablet PO (08:02)
[2021-04-06] MEDS: metoprolol succinate ER (24 HR) 25 mg Tablet 12.5 MG PO (08:02)
[2021-04-06] MEDS: isosorbide mononitrate ER 30 mg Tablet PO (08:02)
--- NOTE | 2021-04-06 10:36 | PM.PN ---
Subjective Subjective: Interval history: Patient is doing well. She had the coronary angiogram performed that did not reveal severe CAD. Ostial diagonal artery had a 50% stenosis, however FFR was normal. Her CT head was negative for stroke. Vitals/I&O/Wt Last Vital Signs Temp 98.3 F 04/06/21 07:09 Pulse 80 04/06/21 07:09 Resp 18 04/06/21 07:09 BP 152/80 04/06/21 07:09 Pulse Ox 93 04/06/21 07:09 04/05/21 04/06/21 04/06/21 22:59 06:59 14:59 Intake Total 1350 / 2513.333 Balance 1350 / 2513.333 Physical Exam Narrative: EXAM NARRATIVE: GENERAL: Patient is alert, awake and oriented x3. [] NECK: No jugular vein distension. [] HEENT: No cyanosis. No icterus. No pallor. [] HEART: Regular S1 and S2. No murmur, rub or gallop. [] LUNGS: Clear to auscultate bilaterally. [] ABDOMEN: Soft, nontender and nondistended. Positive bowel sounds. No guarding, rebound or tenderness. [] CENTRAL NERVOUS SYSTEM: Grossly nonfocal. [] EXTREMITIES: Lower extremities with 1+ edema bilaterally. Pulses palpable in the lower extremities, both dorsalis pedis and posterior tibial. [] Data : 04/06/21 04:47 04/06/21 04:47 A&P Assessment and plan (1) NSTEMI (non-ST elevated myocardial infarction): Status: Resolved (2) PVD (peripheral vascular disease): Status: Resolved (3) Hypertension: Status: Resolved Patient had presented with chest tightness and significantly elevated troponins. Coronary angiogram did not reveal signifcant CAD. FFR of diagonal artery was normal ECHO showed normal LV systolic function. Possible etiology is coronary spasm. Can start on low dose amlodipine if bp tolerates. Will recommend stopping HCTZ. Continue metoprolol and Imdur. Patient was also dehydrated at admission. Hgb was low however hemodynamically stable and no signs of bleeding. Possibly a component of hemodilution with almost receiving 5 liters of fluids since admission.Patient had blood transfusion yesterday with appropriate increase in Hgb. Thank you for involving us with the care of this patient. Patient is ready to be discharge with outpatient cardiology followup. Please call with questions. Attestations Medical Necessity Statement*: Care expected to cross 2 midnights Coding Level of Care Code Acute Sap Security Consultant for [facility] Fwd Diagnoses NSTEMI (non-ST elevated myocardial infarction) I21.4 PVD (peripheral vascular disease) I73.9 Hypertension I10
--- NOTE | 2021-04-06 10:48 | PC.SOCIAL ---
IMM Updated Updated pt and family at bedside on Pg 2 IMM. No questions voiced. Provided pt a copy. Signed, dated, & timed copy in chart.
--- NOTE | 2021-04-06 12:56 | P.DS_ITS ---
Discharge Providers Date of Admission: 04/03/21 19:08 Date of Discharge: April 06, 2021 Attending Provider at Admission: Alfredo Olmedo MD Attending Provider at Discharge: Kenna Cote MD Primary Care Provider: Kassy Michel MD Diagnoses at Discharge Discharge Diagnosis (1) NSTEMI (non-ST elevated myocardial infarction): Status: Acute (2) PVD (peripheral vascular disease): Status: Acute (3) Hypertension: Status: Acute Reason for Visit Reason for Visit: chest heaviness,N/V,Weak,faint upon standing Hospital Course Hospital Course Deedee Mcneill is a 80 year old female with past medical history of hypertension and hypothyroidism has presented to the hospital with complaints of nausea, chest tightness and dizziness. Her initial troponin was 635. She had similar episode on Monday when she was raking leaves on patio when she had chest tightness and felt dizzy. Initial EKG has incomplete right bundle branch block. Q waves noted in inferior leads. Hospital course as below: NSTEMI: s/p coronary angiogram separate ostia for LCx and LAD. moderare disease of the first diagonal artery that underwent FFR and was non ischemc. Otherwise no significant CAD. Possible etiology is coronary spasm. Discharge on Plavix high-dose statin and Toprol, imdur 2D echo:LV systolic function is normal with EF of 50-55% Grade 1 diastolic dysfunction Mild tricuspid regurgitation. TSH:2.38 Appreciate cardiology recommendations Anemia: Hb at 7.8-8.4, noted to be 13 upon admission, may have had some componenet of hemoconcentration at the time, given c/o dizziness and chets pain, aim to keep HB > 8, transfused one unit PRBC. Unable to give specimen for FOBT B12, folate , FE WNL however labs obtained after blood transfusion Persisting diziness: CT head without acute intracranial events, trial of meclizine at discharge Acute kidney injury: resolved at discharge Hypertension:Currently well controlled Hypothyroidism: Continue levothyroxine Discharged today in stable condition, no further chest pain Physical Exam Narrative: EXAM NARRATIVE: GEN: Awake, alert and oriented, no acute distress CVS: S1S2 N RS: CTA B/L Abd: Soft, nt/nd , bs+ CONSERVATION SPECIALIST: no focal neuro deficits Discharge Data Data Completed and Pending: Completed Studies During Hospitalization Category Date Time Status CT head wo con* [id number] Routine Cat Scan 04/05/21 13:16 Completed XR chest 1V ellen ble [id number] Stat Exams 04/03/21 17:22 Completed CV echo complete* [id number] Routine Ultrasound 04/04/21 19:38 [place] [id number] Routin e Ultrasound 04/05/21 22:38 Completed Pending at discharge Category Date Time Status 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 Routin e Exams 04/04/21 07:32 Taken Basic Metabolic P heriberto AM LABS Lab 04/07/21 04:00 Ordered Complete Blood Co unt w/Auto AM LABS Lab 04/07/21 04:00 Ordered Immunochemical Fe joaquín OCB Routine Lab 04/05/21 18:04 Uncollected Labs from last 24 hours 04/06/21 04/06/21 04/06/21 04:47 04:47 04:47 WBC 7.1 RBC 2.71 L Hgb 8.4 L Hct 25.8 L MCV 95.2 MCH 31.0 MCHC 32.6 RDW 13.3 Plt Count 144 MPV 11.7 H Neut % (Auto) 63.3 Lymph % (Auto) 17.0 [place] % (Auto) 16.6 Eos % (Auto) 2.0 Baso % (Auto) 0.7 Neut # (Auto) 4.51 Lymph # (Auto) 1.2 [place] # (Auto) 1.2 H Eos # (Auto) 0.1 Baso # (Auto) 0.1 Nucleated RBC % (a uto) 0 Nucleated RBCs # 0.0 Sodium 142 Potassium 4.0 Chloride 112 H Carbon Dioxide 24 Anion Gap 10.0 BUN 11 Creatinine 0.9 GFR Calculation Not Reportable Glucose 100 Calculated Osmolal ity 293 Calcium 7.6 L Iron 45 Total Bilirubin 0.5 AST 17 ALT 9 Alkaline Phosphata se 29 L Total Protein 4.7 L Albumin 3.0 L Globulin 1.7 Vitamin B12 > 2000 H Folate 15.4 Blood Type Rho(D) Type Antibody Screen Crossmatch 04/04/21 13:16 WBC RBC Hgb Hct MCV MCH MCHC RDW Plt Count MPV Neut % (Auto) Lymph % (Auto) [place] % (Auto) Eos % (Auto) Baso % (Auto) Neut # (Auto) Lymph # (Auto) [place] # (Auto) Eos # (Auto) Baso # (Auto) Nucleated RBC % (a uto) Nucleated RBCs # Sodium Potassium Chloride Carbon Dioxide Anion Gap BUN Creatinine GFR Calculation Glucose Calculated Osmolal ity Calcium Iron Total Bilirubin AST ALT Alkaline Phosphata se Total Protein Albumin Globulin Vitamin B12 Folate Blood Type A Negative Rho(D) Type Negative / 0 Antibody Screen Negative Crossmatch See Detail Vitals: Last Vital Signs Temp 98.0 F 04/06/21 11:12 Pulse 72 04/06/21 11:12 Resp 13 04/06/21 11:12 BP 135/70 04/06/21 11:12 Pulse Ox 96 04/06/21 11:12 Discharge Plan Discharge Patient Disposition: Home Condition: Stable Prescriptions: New atorvastatin 40 mg Tablet 40 mg PO BEDTIME 30 Days Qty: 30 RF: 0 isosorbide mononitrate 30 mg Tablet Extended Release 24 Hr 30 mg PO DAILY 30 Days Qty: 30 RF: 0 clopidogrel 75 mg Tablet 75 mg PO DAILY 30 Days Qty: 30 RF: 0 metoprolol succinate 25 mg Tablet Extended Release 24 Hr 12.5 mg PO DAILY 30 Days Qty: 30 RF: 0 meclizine 25 mg tablet 12.5 mg PO BID PRN (Reason: dizziness) 15 Days Qty: 30 RF: 0 Continued trazodone 50 mg tablet 100 mg PO BEDTIME RF: 0 multivitamin Tablet 1 tab PO DAILY RF: 0 levothyroxine 50 mcg tablet 50 mcg PO DAILY@22 RF: 0 turmeric 400 mg Capsule 400 mg PO BID RF: 0 Calcium + D 1 tab PO BID RF: 0 Fish Oil 1 cap PO BID RF: 0 Vitamin C 1 tab PO BID RF: 0 zinc 1 cap PO DAILY RF: 0 Discontinued hydrochlorothiazide 12.5 mg tablet 12.5 mg PO QAM RF: 0 Discharge Orders: Discharge Order (Routine); Ordered 04/06/21 Ordered By: Kenna Cote Other Ambulatory Orders: Complete Blood Count w/Auto (Routine) Timeframe: 1 Week Location: Determined by Patient Ordered By: Kenna Cote Referrals: Javier Souza M.D [Physician] - 1 month (Please follow-up with Dr. Souza on May 06 at 3:15P.M. If you have any questions or need to reschedule. Please call ) Justina Roman FNP [Nurse Practitioner] - (Please follow-up with Justina Roman MondayApril 12 at 9:15A.M. If you have any questions or need to reschedule. Please call ) Discharge Diet: Usual diet Discharge Activity: Resume usual activity Patient Instructions: Metoprolol (By mouth), Meclizine (By mouth), Isosorbide Mononitrate (By mouth), Atorvastatin (By mouth), Clopidogrel (By mouth), Myocardial Infarction (DC), Left Heart Catheterization (DC), Peripheral Vascular Disorders (DC), Hypertension (DC), Chest Pain Stoplight, Post Angiogram Home Care Instructions, Post Heart Attack Stoplight Discharge Attestations Time Spent in Discharge Care*: greater than 30 min Quality Metrics Clinical Quality Measures During this hospital stay, did patient experience: None Coding Level of Care Code Acute Chg FW DC note Diagnoses NSTEMI (non-ST elevated myocardial infarction) I21.4 PVD (peripheral vascular disease) I73.9 Hypertension I10
--- NOTE | 2021-04-06 13:56 | PC.NURSE ---
Patient given discharge instructions at bedside along with patients daughter. Patient displayed understanding of discharge instructions. Patient was sent with all personal belongings, and brought down to exit via wheelchair.
== END 2021-04-06 14:00 | disposition home or self-care (01) | DRG 281 ==
LOC: ER 17:26 → CSU 19:18
PROVIDERS: Internal Medicine; Admitting Provider Internal Medicine; Emergency Provider Registered Nurse; PCP Family Medicine; Visit Provider Student in an Organized Health Care Education/Training Program
PROC: 4A023N7 Measurement of Cardiac Sampling and Pressure, Left Heart, Percutaneous Approach (ICD-10-PCS; principal; 2021-04-04 08:00)
DX: I21.4 Non-ST elevation (NSTEMI) myocardial infarction (principal); N17.9 Acute kidney failure, unspecified; I25.10 Atherosclerotic heart disease of native coronary artery without angina pectoris; E03.9 Hypothyroidism, unspecified; I10 Essential (primary) hypertension; I95.9 Hypotension, unspecified; I45.10 Unspecified right bundle-branch block; G47.00 Insomnia, unspecified; B35.1 Tinea unguium; I73.9 Peripheral vascular disease, unspecified; D64.9 Anemia, unspecified
CPT/HCPCS: 36200; 36415; 36430; 70450; 71045; 80048; 80053; 82607; 82746; 83540; 83690; 83735; 83880; 84443; 84484; 85025; 85347; 85378; 85610; 85730; 86850; 86900; 86920; 93005; 93306; 93452; 93571; 93970; 96365; 96372; 99285; C1769; C1887; C1894; J0153; J0461; J1644; J1650; J2250; J2405; J3010; J3490; J7030; P9016; Q0163; Q9967

== ENCOUNTER → 2021-04-12 10:03 | Outpatient (BNVA) | payer MEDICARE, OTHER, SELFPAY | PROVIDERS: PCP Family Medicine; Visit Provider Internal Medicine Cardiovascular Disease | DX: D64.9 Anemia, unspecified (principal) | CPT/HCPCS: 85025 ==

== ENCOUNTER 2021-05-20 17:57 | Inpatient (IN) | payer MEDICARE, OTHER, SELFPAY ==
[2021-05-20] VITALS (7 sets, daily range): BP systolic 129–178; BP diastolic 78–90; PULSE 67–86; RESP 15–18; O2SAT 92–98
--- NOTE | 2021-05-20 18:11 | ECG_ITS ---
[facility] Test Date: 2021-05-20 Pat Name: Deedee Mcneill Department: Room: Gender: Female Bracer: : [id number] Requested By: Jhon Velasquez Order Number: [id number] Aguilar MD: Javier Souza M.D. Measurements Intervals [place] Rate: 74 P: 74 WV: 169 QRS: 88 QRSD: 85 T: 113 QT: 383 QTc: 427 Interpretive Statements SINUS RHYTHM WITH SINUS ARRHYTHMIA LEFT ATRIAL ENLARGEMENT [-0.15mV P WAVE IN V1/V2] POSSIBLE RIGHT VENTRICULAR CONDUCTION DELAY [RSR (QR) IN V1/V2] ST DEVIATION AND MODERATE T-WAVE ABNORMALITY, CONSIDER LATERAL ISCHEMIA [-0.1+ mV T WAVE IN I/aVL/V5/V6] Compared to ECG 04/04/2021 00:27:25 Atrial abnormality now present T-wave abnormality now present Possible ischemia now present Electronically Signed On 05-20-2021 23:36:56 CDT by Javier Souza M.D. [email or web address]
--- NOTE | 2021-05-20 18:12 | XRR_ITS ---
PROCEDURE INFORMATION: Exam: XR Chest Exam date and time: 05/20/2021 6:12 PM Age: 80 years old Clinical indication: Injury or trauma; Blunt trauma (contusions or hematomas); Injury date: 05/20/2021; Injury details: Fall today, deformity left hip; Additional info: Cough TECHNIQUE: Imaging protocol: XR of the chest. Views: 1 view. COMPARISON: CR (CHEST, ) 04/03/2021 5:35 PM FINDINGS: Lungs: Calcified granuloma in the right lung. Mild atelectasis in the left lung base. The lungs are otherwise clear. Stable bone island in the right humerus. Pleural spaces: Unremarkable. No pleural effusion. No pneumothorax. Heart/Mediastinum: Unremarkable. No cardiomegaly. Bones/joints: Mild scoliosis. XR/XR chest 1V portable [id number] IMPRESSION: 1. No acute findings.
--- NOTE | 2021-05-20 18:12 | XRR_ITS ---
PROCEDURE INFORMATION: Exam: XR Pelvis Exam date and time: 05/20/2021 6:12 PM Age: 80 years old Clinical indication: Injury or trauma; Blunt trauma (contusions or hematomas); Injury date: 05/20/2021; Injury details: Fall today, deformity left hip TECHNIQUE: Imaging protocol: XR pelvis. Views: 1 or 2 view. COMPARISON: CT abdomen pelvis w con* [id number] 05/23/2018 10:10 PM FINDINGS: Bones/joints: Comminuted displaced left intertrochanteric femur fracture. The bony pelvis is intact. Soft tissues: Unremarkable. XR/XR pelvis 1-2V* [id number] IMPRESSION: 1. Comminuted left intertrochanteric femur fracture.
--- NOTE | 2021-05-20 18:13 | W.ED.TRAUMA ---
HPI - Trauma General: Chief Complaint: Fall Stated Complaint: fall/ deformity Time Seen by Provider: 05/20/21 18:01 History of Present Illness: HPI narrative: This patient is female who presents to the emergency department status post fall approximately an hour ago. Patient was in her home got up and walked to the kitchen from the living room and tripped over the transition in the floor. Patient states she fell with injury to her left hip. Left lower extremity is abnormally rotated and shortened. Concerning for fracture. Patient does have a history of losing her balance and falling. Will do medical evaluation treat as needed complaint: fall, injury and pain Onset (ago): hour(s) Loss of Consciousness: no Location: pelvis Location - Extremities: Left: hip and thigh Severity: moderate Context: fall Associated symptoms: Denies abdominal pain, back pain, chest pain, chills, fever(s), headache(s), nausea or vomiting Review of Systems General: Reports: 10 or more systems reviewed and unremarkable except in HPI and below Const: Denies: fever(s), chills, body aches or fatigue Eyes: Denies: change in vision or blurry vision ENMT: Denies: throat pain, hoarseness or mouth pain Card: Denies: chest pain, palpitations, irregular heart rhythm, edema, swelling of feet/ankles or lightheadedness Resp: Denies: dyspnea, productive cough, non-productive cough, wheezing or pain on inspiration GI: Denies: abdominal pain, nausea or vomiting : Denies: flank pain, difficulty voiding, dysuria, urinary frequency, urinary urgency or urinary hesitancy Musc: Reports: extremity pain and limited range of motion; Denies: neck pain, back pain, extremity swelling, joint pain, joint swelling, joint redness or joint warmth Skin/Breast: Denies: rash, pruritus, erythema or skin tenderness Neuro: Denies: headache(s), numbness in extremities or weakness in extremities Psych: Denies: anxiety or depression PFSH ED PFSH: Medical History Closed fracture of right wrist Hypertension Ingrown toenail of left foot Insomnia Onychomycosis of toenail Thyroid disease Surgical History H/O section History of surgery on wrist Hx of inguinal hernia repair Family History Grandfather Cancer Mother Hypertension Denies family history of Diabetes CAD (coronary artery disease) Clotting disorder Dementia Hyperlipidemia Psychiatric illness Chronic kidney disease (CKD) Suicide Anesthesia complication Bleeding disorder Family history of premature coronary artery disease Lung disease Stroke Social History Smoking and tobacco status: never smoked Alcohol intake: never Physical Exam Const: COMMON NORMALS: no acute distress, average body habitus, patient oriented x3, no limitations, healthy appearing, alert and well nourished HENMT: COMMON NORMALS: normocephalic, atraumatic, hearing grossly normal bilaterally, external ears normal, EAC's normal, TM's normal bilaterally, Normal external nose present, Normal nasal mucous membranes and turbinates present, moist oral mucous membranes, oropharynx normal, dentition normal and gingiva normal HEAD & SCALP: normocephalic and atraumatic NOSE: Normal external nose present and Normal nasal mucous membranes and turbinates present EXTERNAL EAR: Yes external ears normal EXTERNAL AUDITORY CANAL: EAC's normal TYMPANIC MEMBRANE: TM's normal bilaterally Neck/C-Spine: COMMON NORMALS: full ROM, no lymphadenopathy, supple, no meningeal signs, no JVD, Thyroid normal and No carotid bruits THYROID: Thyroid normal Chest: COMMONS NORMALS: normal inspection of the chest, normal palpation of entire chest wall, normal inspection of the breasts and normal palpation of the breasts Breast/axilla inspection: Yes normal inspection of the breasts BREAST/AXILLA PALPATION: Yes normal palpation of the breasts Resp: COMMON NORMALS: normal respiratory effort, No retractions, No use of accessory muscles, clear to auscultation bilaterally and percussion normal AUSCULTATION: clear to auscultation bilaterally PERCUSSION: percussion normal Cardio: COMMON NORMALS: no JVD, regular rate, regular rhythm, S1 normal heart sound present, S2 normal heart sound present, No gallops present (Cardio), No clicks present (Cardio), No murmurs present (Cardio), No rub (Cardio) and Peripheral pulses 2+ throughout RATE: regular rate RHYTHM: regular rhythm HEART SOUNDS: S1 normal heart sound present and S2 normal heart sound present PERIPHERAL PULSES: Peripheral pulses 2+ throughout GI: COMMON NORMALS: Normal to inspection, nondistended, normoactive bowel sounds present, Soft to palpation, non-tender, No hepatosplenomegaly present, no masses and no bruits PALPATION: Yes Soft to palpation and Yes No hepatosplenomegaly present Back/Pelvis: COMMON NORMALS: thoracic and lumbar spine normal to inspection, no thoracic nor lumbar tenderness, thoraco-lumbar ROM normal and straight leg raise negative bilaterally Extremity: COMMON NORMALS: capillary refill normal, no joint enlargement, no clubbing, cyanosis or edema, no calf tenderness and no pedal edema LEFT LOWER EXTREMITY: Yes hip joint (Shortened leg laterally rotated) Left hip: Yes inspection, Yes palpation (Pain on palpation) and Yes ROM (Limited range of motion.) Neuro: COMMON NORMALS: patient oriented x3 SENSORIUM/ORIENTATION: Yes alert MENINGEAL SIGNS: Yes no meningeal signs Course Reevaluation(s): Reevaluation #1: I did discuss sling with patient and family and they state understanding for need for admission hip fracture repair in the morning. Time: 19:27 Consultations: Consultation #1: I did discuss at length with Dr. James on-call orthopedic surgeon. They agreed to see the patient as a consult. They request the patient be kept n.p.o. after midnight for surgical repair tomorrow. Request the hospitalist admit Time: 18:31 Consultation #2: Patient will be admitted to Dr. Cote service. She had will see patient write additional orders. Patient is to be kept n.p.o. after midnight for surgical repair of left hip tomorrow morning with Dr. James. Time: 19:28 Vital Signs: Vital signs: Vital Signs Pulse Rate 75 05/20/21 18:05 Respiratory Rate 15 05/20/21 18:05 Blood Pressure 178/86 05/20/21 18:05 Pulse Oximetry 95 05/20/21 18:05 MDM - Trauma MDM Narrative: Medical decision making narrative: This patient is female who presents to the emergency department status post fall approximately an hour ago. Patient was in her home got up and walked to the kitchen from the living room and tripped over the transition in the floor. Patient states she fell with injury to her left hip. Left lower extremity is abnormally rotated and shortened. Concerning for fracture. Patient does have a history of losing her balance and falling. I did discuss at length with Dr. James on-call orthopedic surgeon. They agreed to see the patient as a consult. They request the patient be kept n.p.o. after midnight for surgical repair tomorrow. Request the hospitalist admit Patient will be admitted to Dr. Rocael flores. She had will see patient write additional orders. Patient is to be kept n.p.o. after midnight for surgical repair of left hip tomorrow morning with Dr. James. Lab Data: Labs: Lab Results 05/20/21 Range/Units 19:00 WBC 6.5 (4.0-10.0) 10^3/ uL RBC 3.99 L (4.1-5.3) 10^6/u L Hgb 12.3 (11.5-15.3) g/dL Hct 39.0 (37.0-47.0) % MCV 97.7 (81-99) fL MCH 30.8 (28.0-34.0) pg MCHC 31.5 (30.0-36.0) g/dL RDW 12.7 (12.1-15.1) % Plt Count 190 (130-400) 10^3/c mm MPV 11.7 H (7.4-10.4) fL Neut % (Auto) 71.0 % Lymph % (Auto) 14.9 % Aiken % (Auto) 10.9 % Eos % (Auto) 0.8 % Baso % (Auto) 0.9 % Neut # (Auto) 4.61 (1.8-7.7) 10^3/u L Lymph # (Auto) 1.0 (0.8-4.8) 10^3/u L Aiken # (Auto) 0.7 (0.2-0.9) 10^3/u L Eos # (Auto) 0.1 (0.0-0.8) 10^3/u L Baso # (Auto) 0.1 (0.0-0.1) 10^3/u L Nucleated RBC % (a uto) 0 % Nucleated RBCs # 0.0 /100WBC Imaging Data^: CXR: Attestation: I personally reviewed and interpreted this imaging study as follows: Radiologist's impression: No acute findings Xray Ortho: Attestation: I personally reviewed and interpreted this imaging study as follows: Radiologist's impression: IMPRESSION: 1. Comminuted displaced left intertrochanteric femur fracture. EKG Data^: EKG 1: Attestation: I personally reviewed and interpreted this EKG as follows: EKG interpretation date: 05/20/21 EKG interpretation time: 18:46 Prior EKG tracings: not available for review Interpretation: Sinus rhythm with sinus arrhythmia left atrial enlargement populous possible right ventricular conduction delay. Nonspecific ST changes. Abnormal EKG heart rate 74 Discharge Plan Discharge Patient Disposition: Admitted As Inpatient Clinical Impression: Closed fracture of left hip, Fall Condition: Stable Prescriptions: No Action trazodone 50 mg tablet 100 mg PO BEDTIME RF: 0 furosemide 20 mg tablet 20 mg PO DAILY PRN (Reason: edema) Qty: 30 RF: 0 metoprolol succinate 25 mg tablet extended release 24 hr 12.5 mg PO DAILY Qty: 45 RF: 3 multivitamin Tablet 1 tab PO DAILY RF: 0 levothyroxine 50 mcg tablet 50 mcg PO DAILY@22 RF: 0 turmeric 400 mg Capsule 400 mg PO BID RF: 0 Vitamin C 1 tab PO BID RF: 0 zinc 1 cap PO DAILY RF: 0 Calcium + D 600 mg(1,500mg) -200 unit Tablet 1 tab PO DAILY RF: 0 Vitamin D3 125 mcg (5,000 unit) Tablet 125 mcg PO DAILY RF: 0 Fish Oil 350-600 mg Capsule 1 cap PO DAILY RF: 0 Referrals: Kassy Michel MD [Primary Care Provider] - Coding Level of Care Code ED 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
--- NOTE | 2021-05-20 18:16 | XRR_ITS ---
PROCEDURE INFORMATION: Exam: XR Left Femur Exam date and time: 05/20/2021 6:16 PM Age: 80 years old Clinical indication: Injury or trauma; Blunt trauma; Injury date: 05/20/2021; Injury details: Fall today, deformity left hip TECHNIQUE: Imaging protocol: XR Left femur. Views: 2 views. COMPARISON: [place] [id number] 04/05/2021 10:04 AM FINDINGS: Bones/joints: Comminuted displaced left intertrochanteric femur fracture. The left hip joint and knee joint are intact. Soft tissues: Unremarkable. XR/XR femur LT min 2V* [id number] IMPRESSION: 1. Comminuted displaced left intertrochanteric femur fracture.
[2021-05-20] MEDS: morphine 4 mg/mL SDV 1 mL 2 MG IVP (18:27)
[2021-05-20] MEDS: ondansetron 2 mg/ML SDV 2 mL 4 MG IVP (18:28)
[2021-05-20 19:12] LABS: Basophils # 0.1 10^3/uL (0.0-0.1); Basophils % 0.9 %; Eosinophils # 0.1 10^3/uL (0.0-0.8); Eosinophils % 0.8 %; Hemoglobin 12.3 g/dL (11.5-15.3); Lymphocytes % 14.9 %; Mean Corpuscular HGB Conc 31.5 g/dL (30.0-36.0); Mean Corpuscular Hemoglobin 30.8 pg (28.0-34.0); Mean Corpuscular Volume 97.7 fL (81-99); Mean Platelet Volume 11.7 fL (7.4-10.4); Monocytes # 0.7 10^3/uL (0.2-0.9); Monocytes % 10.9 %; Neutrophils # 4.61 10^3/uL (1.8-7.7); Nucleated Red Blood Cells % 0 %; Platelet Count 190 10^3/cmm (130-400); Red Blood Count 3.99 10^6/uL (4.1-5.3); Red Cell Distribution Width 12.7 % (12.1-15.1); White Blood Count 6.5 10^3/uL (4.0-10.0)
[2021-05-20] MEDS: morphine 4 mg/mL SDV 1 mL IVP (19:32)
[2021-05-20 19:42] LABS: Alanine Aminotransferase 13 U/L (0-33); Albumin Level 3.8 g/dL (3.5-5.2); Alkaline Phosphatase 39 IU/L (35-105); Aspartate Amino Transferase 22 U/L (0-32); Blood Urea Nitrogen 19 mg/dL (8-23); Calcium 9.1 mg/dL (8.5-10.5); Carbon Dioxide 25 mmol/L (22-29); Chloride 102 mmol/L (98-107); Globulin 2.3 g/dL (1.3-4.6); Glucose 111 mg/dL (65-115); Osmolality Calculated 289 mOsm/kg (285-295); Sodium 138 mmol/L (136-145); Total Bilirubin 0.3 mg/dL (0.15-1.2); Total Protein 6.1 g/dL (6.6-8.7)
--- NOTE | 2021-05-20 20:21 | P.HP_ITS ---
Providers/Chief Complaint Admitting Physician: Kenna Cote MD Primary Care Provider: Kassy Michel MD Chief Complaint: fall/ deformity History of Present Illness Deedee Mcneill is a 80 year old female recently admitted to hospital with the complaints of chest pain and elevated troponin T. 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 She had an FFR, was within normal limits. Based on this, it was decided to treat her medically. Findings were thought to be related to coronary spasm. She was found to be anemic. Had 1 unit of blood transfusion. She was discharged on Plavix, statins, imdur. Thereafter on follow up with cardiology, imdur was stopped due to headaches. She returns today with c/o sustaining a mechanical fall found to have a comminuted displaced left intertrochanteric femur fracture. He is planned for surgical intervention tomorrow morning with Dr. Smith. Review of Systems General: Reports: 10 or more systems reviewed and unremarkable except in HPI and below Const: Denies: fever(s), chills or body aches Eyes: Denies: change in vision, blurry vision or photophobia ENMT: Reports: hoarseness; Denies: throat pain, enlarged tonsils, odynophagia or nasal congestion Card: Denies: chest pain, palpitations, irregular heart rhythm, edema, swellin g of feet/ankles, lightheadedness, pre-syncope, dyspnea on exertion or orthopnea Resp: Denies: dyspnea, productive cough, non-productive cough, wheezing, stridor, pain on inspiration, change in phlegm color, hemoptysis or chest congestion GI: Denies: abdominal pain, nausea, vomiting, hematemesis, coffee ground emesis, dysphagia, heartburn, diarrhea, constipation, GI cramping, change in s tool character, hematochezia or melena : Denies: flank pain, difficulty voiding, dysuria, urinary frequency, urinary urgency, urinary hesitancy or hematuria Musc: Denies: neck pain, back pain, extremity pain, joint swelling, joint warmth or deformity Neuro: Denies: headache(s), numbness in extremities, weakness in extremities, sensory changes, difficulty walking, frequent falls, dizziness, vertigo, behavioral changes, Slurred speech present or seizure-like activity Psych: Denies: anxiety, depression, suicidal ideation or homicidal ideation Endo: Denies: polyuria, polydipsia, tired all the time, cold intolerance or h ot flashes Darrell/Lymph: Denies: easy bruising or easy bleeding Medications/Allergies Home Medications Medication Instructions Recorded Confirmed Last Taken Type trazodone 50 mg tablet 100 mg PO BEDTIME tab 11/19/19 05/20/21 05/19/21 History Vitamin C 1 tab PO BID 04/03/21 05/20/21 05/20/21 History levothyroxine 50 mcg PO DAILY@22 04/03/21 05/20/21 05/19/21 History multivitamin 1 tab PO DAILY 04/03/21 05/20/21 05/20/21 History turmeric 400 mg PO BID 04/03/21 05/20/21 05/20/21 History zinc 1 cap PO DAILY 04/03/21 05/20/21 05/20/21 History furosemide 20 mg tablet 20 mg PO DAILY PRN #30 tab 05/06/21 05/20/21 05/20/21 Rx metoprolol succinate 25 mg 12.5 mg PO DAILY #45 tab 05/06/21 05/20/21 05/20/21 Rx tablet,extended release 24 hr calcium carbonate-vitamin D3 1 tab PO DAILY 05/20/21 05/20/21 05/20/21 History [Calcium + D] cholecalciferol (vitamin D3) 125 mcg PO DAILY 05/20/21 05/20/21 05/20/21 History [Vitamin D3] [id number]-fish oil [Fish 1 cap PO DAILY 05/20/21 05/20/21 05/20/21 History Oil] Allergies Allergy/AdvReac Type Severity Reaction Status Date / Time penicillamine Allergy ALGY-Rash Verified 05/18/21 09:13 Penicillins Allergy Unknown Verified 05/18/21 09:13 Sulfa (Sulfonamide Allergy ALGY-Rash Verified 05/18/21 09:13 Antibiotics) PFSH Acute PFSH: Medical History Closed fracture of right wrist Hypertension Ingrown toenail of left foot Insomnia Onychomycosis of toenail Thyroid disease Surgical History H/O section History of surgery on wrist Hx of inguinal hernia repair Family History Grandfather Cancer Mother Hypertension Denies family history of Diabetes CAD (coronary artery disease) Clotting disorder Dementia Hyperlipidemia Psychiatric illness Chronic kidney disease (CKD) Suicide Anesthesia complication Bleeding disorder Family history of premature coronary artery disease Lung disease Stroke Social History Smoking and tobacco status: never smoked Alcohol intake: never Vitals/I&O/Wt Last Vital Signs Pulse 70 05/20/21 19:37 Resp 16 05/20/21 19:37 BP 169/90 05/20/21 19:37 Pulse Ox 98 05/20/21 19:37 Physical Exam Narrative: EXAM NARRATIVE: General: No acute distress, AO x3 HEENT: PERRLA, pupils bilaterally equal and reactive, pallors not present Chest: Normal vesicular breath sounds, no added sounds, equal good air entry bilaterally CVS: S1-S2 regular, no murmurs, no tachycardia, no gallops, no rubs Abdomen: Soft, nontender, no organomegaly, bowel sounds present Neuro: No focal deficits, no facial deformity, AO x3, power 5/5 in all limbs Data : 05/20/21 19:00 05/20/21 19:00 A&P Assessment and plan (1) Closed intertrochanteric fracture of left hip: Patient plan for operative intervention tomorrow morning with Dr. Smith. Pain control with as needed morphine, Tylenol, Toradol as needed. Recent history of chest pain which was extensively worked up, patient underwent a coronary angiogram which did not find evidence of grossly obstructive CAD, he has been continued on medical management. No current complaints of chest pain dyspnea or palpitations. No medical contraindication to proceed with surgery tomorrow morning. Status: Acute Qualifiers: Encounter type: initial encounter Fracture alignment: displaced Qualified Code(s): S72.142A - Displaced intertrochanteric fracture of left femur, initial encounter for closed fracture (2) Benign essential HTN: Continue home dose of metoprolol, if needed with amlodipine Status: Acute (3) Hypothyroidism: Continue home dose of levothyroxine Status: Acute Qualifiers: Hypothyroidism type: acquired Qualified Code(s): E03.9 - Hypothyroidism, unspecified Additional A&P Information DVT prophylaxis: Lovenox to start postoperatively Full code Attestations Medical Necessity Statement*: Greater than 2 midnight stay anticipated for surgical fixation of hip fracture, postop monitoring, therapy assessments Coding Level of Care Code Acute Marine Engineering Teacher for Chg Fwd Diagnoses Closed intertrochanteric fracture of left hip S72.142A Encounter type: initial encounter Fracture alignment: displaced Benign essential HTN I10 Hypothyroidism E03.9 Hypothyroidism type: acquired
--- NOTE | 2021-05-20 21:21 | P.CONIM_ITS ---
Providers/Reason For Consult Consulting Physician/Specialty*: Kristin Smith MD Reason for Consult*: Left Intertrochanteric Hip Fracture Requesting Physician: Dr. Jhon Velasquez Attending Physician: Kenna Cote MD Primary Care Provider: Kassy Michel MD History of Present Illness History of Present Illness Deedee Mcneill is a 80 year old female who fell in her home while walking from one room to another. She tripped over a transition in the floor. Upon presentation, she had a shortened, rotated left lower extremity, and x-ray confirmed a comminuited left intertrochanteric hip fracture. She was admitted to the medical service for optimization prior to surgery. Review of Systems General: Reports: 10 or more systems reviewed and unremarkable except in HPI and below Const: Denies: fever(s), chills, body aches or fatigue Eyes: Denies: change in vision, blurry vision or photophobia ENMT: Denies: throat pain, enlarged tonsils, hoarseness or mouth pain Card: Denies: chest pain, palpitations, irregular heart rhythm, edema, swelling of feet/ankles or lightheadedness Resp: Denies: dyspnea, productive cough, non-productive cough, wheezing or pain on inspiration GI: Denies: abdominal pain, nausea or vomiting : Denies: flank pain, difficulty voiding, dysuria, urinary frequency, urinary urgency or urinary hesitancy Musc: Reports: extremity pain and limited range of motion; Denies: neck pain, back pain, extremity swelling, joint pain, joint swelling, joint redness or joint warmth Skin/Breast: Denies: rash, pruritus, erythema or skin tenderness Neuro: Denies: headache(s), numbness in extremities or weakness in extremities Psych: Denies: anxiety or depression Endo: Denies: polyuria, polydipsia, tired all the time, cold intolerance or hot flashes Darrell/Lymph: Denies: easy bruising or easy bleeding Meds/Allergies Home Medications and Allergies Home Medications Medication Instructions Recorded Confirmed Last Taken Type trazodone 50 mg tablet 100 mg PO BEDTIME tab 11/19/19 05/20/21 05/19/21 History Vitamin C 1 tab PO BID 04/03/21 05/20/21 05/20/21 History levothyroxine 50 mcg PO DAILY@22 04/03/21 05/20/2121 History multivitamin 1 tab PO DAILY 04/03/21 05/20/21 05/20/21 History turmeric 400 mg PO BID 04/03/21 05/20/21 05/20/21 History zinc 1 cap PO DAILY 04/03/21 05/20/21 05/20/21 History furosemide 20 mg tablet 20 mg PO DAILY PRN #30 tab 05/06/21 05/20/21 05/20/21 Rx metoprolol succinate 25 mg 12.5 mg PO DAILY #45 tab 05/06/21 05/20/21 05/20/21 Rx tablet,extended release 24 hr calcium carbonate-vitamin D3 1 tab PO DAILY 05/20/21 05/20/21 05/20/21 History [Calcium + D] cholecalciferol (vitamin D3) 125 mcg PO DAILY 05/20/21 05/20/21 05/20/21 History [Vitamin D3] [id number]-fish oil [Fish 1 cap PO DAILY 05/20/21 05/20/21 05/20/21 History Oil] Allergies Allergy/AdvReac Type Severity Reaction Status Date / Time penicillamine Allergy ALGY-Rash Verified 05/21/21 15:08 Penicillins Allergy Unknown Verified 05/21/21 15:08 Sulfa (Sulfonamide Allergy ALGY-Rash Verified 05/21/21 15:08 Antibiotics) PFSH Acute PFSH: Medical History Closed fracture of right wrist Hypertension Ingrown toenail of left foot Insomnia Onychomycosis of toenail Thyroid disease Surgical History H/O section History of surgery on wrist Hx of inguinal hernia repair Family History Grandfather Cancer Mother Hypertension Denies family history of Diabetes CAD (coronary artery disease) Clotting disorder Dementia Hyperlipidemia Psychiatric illness Chronic kidney disease (CKD) Suicide Anesthesia complication Bleeding disorder Family history of premature coronary artery disease Lung disease Stroke Social History Smoking and tobacco status: never smoked Alcohol intake: never Dietary Habits: Current diet type/program: regular Safety: Seatbelt use: always Drive intoxicated or ride with intoxicated retail delivery driver?: never Vitals/I&O/Wt Last Vital Signs Pulse 67 05/20/21 20:28 Resp 18 05/20/21 20:28 BP 151/78 05/20/21 20:28 Pulse Ox 92 05/20/21 20:28 Physical Exam Const: COMMON NORMALS: no acute distress, patient oriented x3 and alert GENERAL APPEARANCE: cooperative and comfortable NUTRITIONAL APPEARANCE: thin ORIENTATION/CONSCIOUSNESS: Yes awake HENMT: COMMON NORMALS: normocephalic and atraumatic HEAD & SCALP: normocephalic and atraumatic Eye: GENERAL EYE: appearance normal, both eyes and all related structures Chest: COMMONS NORMALS: normal inspection of the chest Resp: COMMON NORMALS: normal respiratory effort EFFORT & INSPECTION: Yes able to speak in complete sentences and Yes symmetric chest movement Extremity: LEFT LOWER EXTREMITY: Yes hip joint (Leg is shortened and 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.) Left hip: Yes inspection, Yes palpation (tender to palpation and ROM), Yes ROM (Not evaluated) and Yes neurovascular exam (Intact distally motor and sensory) Neuro: COMMON NORMALS: patient oriented x3 SENSORIUM/ORIENTATION: Yes alert Psych: COMMON NORMALS: mental status grossly normal APPEARANCE: Yes grossly normal ATTITUDE: Yes calm and Yes engaged ATTENTION/CONCENTRATION: Yes attention grossly intact Skin: COMMON NORMALS: no rashes or lesions noted GENERAL SKIN EXAM: no rashes or lesions noted Data Imaging^: Xray Ortho: I personally reviewed and interpreted this imaging study as follows: My impression: Single Pelvis and 5 views of left femur demonstrate a comminuted, angulated left intertrochanteric hip fracture. A&P Assessment and plan (1) Closed intertrochanteric fracture of left hip: Patient is seen prior to surgery. Discussion is undertaken with the patient and her family regarding appropriate treatments. We are planning a trochanteric nail to treat her significantly displaced shortened intertrochanteric hip fracture. Risks and complications are discussed with the patient. Consents are signed. Questions were answered. Status: Acute Qualifiers: Encounter type: initial encounter Fracture alignment: displaced Qualified Code(s): S72.142A - Displaced intertrochanteric fracture of left femur, initial encounter for closed fracture Consult Attestations Medical Necessity Statement: Admission is required for treatment of displaced shortened intertrochanteric hip fracture. Coding Level of Care Code Acute Inside Finisher for Chg Fwd Exam Comprehensive Diagnoses Closed intertrochanteric fracture of left hip S72.142A Encounter type: initial encounter Fracture alignment: displaced
[2021-05-20 23:20] LABS: Add Urine Microscopic? YES; Amorphous Sediment Urine 3+ /hpf; Bacteria Urine TRACE /hpf; Bilirubin Urine Neg (Negative); Blood Urine Neg (Negative); Glucose Urine UA Norm (Normal); Ketones Urine 1+ (Negative); Leukocyte Esterase Urine Negative (Negative); Nitrate Urine Negative (Negative); Protein Urine Neg (Negative); RBC Urine 0-4 /hpf (0-2); Specific Gravity, Urine 1.015 (1.005-1.030); Squamous Epithelial Cell Urine 0-4 /hpf (0-5); Sulfosalicylic Acid Urine Negative (Negative); Urine Appearance Hazy (CLEAR); Urine Color Yellow (Yellow); Urobilinogen Urine Norm (Negative); WBC Urine 0-4 /hpf (0-5); pH Urine 8 (5-7)
[2021-05-21] VITALS (28 sets, daily range): BP systolic 90–166; BP diastolic 55–104; PULSE 66–113; RESP 10–21; TEMP 36.2–37.3; O2SAT 91–100; BMI 18.3
--- NOTE | 2021-05-21 | SCC_ITS ---
Procedure Done: Open reduction internal fixation left comminuted displaced intertrochanteric hip fracture 125.8 seconds of fluoroscopic guidance, for a cumulative dose of 12.32 mGy, was provided to Dr. Smith by the radiology department. C-arm images of the LEFT hip were saved for the patient's permanent record. [facility]
[2021-05-21] MEDS: morphine 4 mg/mL SDV 1 mL 2 MG IVP ×5 (00:06→22:49)
--- NOTE | 2021-05-21 13:33 | PM.PN ---
Subjective Subjective: Interval history: Admitted overnight. Plan for OR today. Examination states pain is tolerable but is there. Worried about muscle spasm. States post ORIF she would like to go back home for physical therapy. He states he has in-home physical therapy team coming every day. Denies any nausea vomiting, headache, chest pain, dizziness. Vitals/I&O/Wt Last Vital Signs Pulse 74 05/21/21 08:00 Resp 16 05/21/21 08:00 BP 157/80 05/21/21 08:00 Pulse Ox 97 05/21/21 08:00 Physical Exam Narrative: EXAM NARRATIVE: General: No acute distress, AO x3 HEENT: PERRLA, pupils bilaterally equal and reactive, pallors not present Chest: Normal vesicular breath sounds, no added sounds, equal good air entry bilaterally CVS: S1-S2 regular, no murmurs, no tachycardia, no gallops, no rubs Abdomen: Soft, nontender, no organomegaly, bowel sounds present Neuro: No focal deficits, no facial deformity, AO x3, power 5/5 in all limbs Extremity: COMMON NORMALS: capillary refill normal and no clubbing, cyanosis or edema; negative for full ROM Urinary Catheter Management^: Britt: Cath Placed During This Visit: yes Reason for Continuing Indwelling Catheter: Perioperative Use in Selected Surgeries Urinary Catheter Date of Insertion: 05/20/21 Data : 05/20/21 19:00 05/20/21 19:00 A&P Assessment and plan (1) Fall: Mechanical Status: Acute (2) Closed intertrochanteric fracture of left hip: OR today. Dr. Smith has been consulted from the ER. [place] every 8 hours as needed and Celebrex 100 twice daily for pain control. Physical therapy, touch weightbearing, anticoagulation aspirin orthopedics. Monitor hemoglobin. We will transfuse if hemoglobin drops below 8. Recent history of chest pain which was extensively worked up, patient underwent a coronary angiogram which did not find evidence of grossly obstructive CAD, he has been continued on medical management. No current complaints of chest pain dyspnea or palpitations. No medical contraindication to proceed with moderately high risk procedure. Status: Acute Qualifiers: Encounter type: initial encounter Fracture alignment: displaced Qualified Code(s): S72.142A - Displaced intertrochanteric fracture of left femur, initial encounter for closed fracture (3) Benign essential HTN: Goal blood pressure less than 140/90 mmHg. Continue metoprolol but with prolonged divided dose of 25 mg tartrate twice daily. If needed can add low-dose amlodipine. Status: Acute (4) Hypothyroidism: Continue home dose of levothyroxine Status: Acute Qualifiers: Hypothyroidism type: acquired Qualified Code(s): E03.9 - Hypothyroidism, unspecified (5) Atherosclerotic heart disease: Status: Acute Qualifiers: Coronary Disease-Associated Artery/Lesion type: [place] artery [place] vs. transplanted heart: [place] heart Associated angina: without angina Qualified Code(s): I25.10 - Atherosclerotic heart disease of [place] coronary artery without angina pectoris Additional A&P Information DVT prophylaxis: Lovenox to start postoperatively Full code Cardiac diet postoperatively. Check lipid panel, iron panel, TSH, A1c. Discharge planning: Home with home health. Attestations Medical Necessity Statement*: Requires further hospitalization for management of closed intertrochanteric fracture of left hip Time Spent in Patient Care: Greater than 35 minutes (>than 50% of time spent in counselling and/or direct pt care on unit). Coding Level of Care Code Acute [employer] Agent for [employer] Fwd Diagnoses Fall W19.XXXA Closed intertrochanteric fracture of left hip S72.142A Encounter type: initial encounter Fracture alignment: displaced Benign essential HTN I10 Hypothyroidism E03.9 Hypothyroidism type: acquired Atherosclerotic heart disease I25.10 Coronary Disease-Associated Artery/Lesion type: [place] artery [place] vs. transplanted heart: [place] heart Associated angina: without angina
--- NOTE | 2021-05-21 15:13 | P.ANESASSM_ITS ---
Pre-Anesthetic Assessment Pre-Anesthetic Assessment: Height/Weight: Height 1.7 m Weight 53.07 kg Temp Pulse Resp BP Pulse Ox 99.2 F 85 18 166/78 93 05/21/21 14:53 05/21/21 14:53 05/21/21 14:53 05/21/21 14:53 05/21/21 14:53 Preop Diagnosis: Left Intertrochanteric Hip Fracture Proposed Procedure: Operation Date: 05/21/21 14:15 Proposed Procedures p Trochanteric Femoral Nail(Left) - Kristin Smith MD Was Beta Danny taken within 24 hours: Yes Was Clonidine taken within 24 hours: N/A Social: Social History: No alcohol and No tobacco Exam: Pre-Anes Outpt Exam: alert, oriented x 3, clear to auscultation bilaterally and regular rate & rhythm Airway: Submandibular: WNL Cervical ROM: WNL MP: 2 Dentition: Caps CV/HEM: CV/HEM: Anemia, CAD, PR and PVD : : Chronic renal Insufficiency Metabolic: Metabolic: Thyroid Anesthetic Plan: ASA status: 3 Anesthesia: Regional (specify below) Other: SAB Risk of > 500 ml blood loss (7ml/kg in children): No Meds/Allergies Current Medications: Current Medications Generic Name Dose Route Start Last Admin Trade Name Freq PRN Reason Stop Dose Admin Morphine Sulfate 2 mg 05/20/21 22:25 05/21/21 14:42 Morphine 4 Mg/Ml Sdv 1 Ml IVP 2 mg Q4H PRN Administration pain PFSH Anesthesia PFSH: Medical History Closed fracture of right wrist Hypertension Ingrown toenail of left foot Insomnia Onychomycosis of toenail Thyroid disease Surgical History H/O section History of surgery on wrist Hx of inguinal hernia repair Family History Grandfather Cancer Mother Hypertension Denies family history of Diabetes CAD (coronary artery disease) Clotting disorder Dementia Hyperlipidemia Psychiatric illness Chronic kidney disease (CKD) Suicide Anesthesia complication Bleeding disorder Family history of premature coronary artery disease Lung disease Stroke Social History Smoking and tobacco status: never smoked Alcohol intake: never Data Anesthesia CBC & Chem 7: 05/20/21 19:00 05/20/21 19:00 Other Labs: Laboratory Results - last 48 hr 05/20/21 05/20/21 05/20/21 19:00 19:00 23:06 WBC 6.5 RBC 3.99 L Hgb 12.3 Hct 39.0 MCV 97.7 MCH 30.8 MCHC 31.5 RDW 12.7 Plt Count 190 MPV 11.7 H Neut % (Auto) 71.0 Lymph % (Auto) 14.9 [place] % (Auto) 10.9 Eos % (Auto) 0.8 Baso % (Auto) 0.9 Neut # (Auto) 4.61 Lymph # (Auto) 1.0 [place] # (Auto) 0.7 Eos # (Auto) 0.1 Baso # (Auto) 0.1 Nucleated RBC % (auto) 0 Nucleated RBCs # 0.0 Sodium 138 Potassium 5.0 Chloride 102 Carbon Dioxide 25 Anion Gap 16.0 BUN 19 Creatinine 1.1 H GFR Calculation Not Reportable Glucose 111 Calculated Osmolality 289 Calcium 9.1 Total Bilirubin 0.3 AST 22 ALT 13 Alkaline Phosphatase 39 Total Protein 6.1 L Albumin 3.8 Globulin 2.3 Urine Color Yellow Urine Appearance Hazy A Urine pH 8 H Ur Specific [place] 1.015 Urine Protein Neg Urine Glucose (UA) Norm Urine Ketones 1+ H Urine Blood Neg Urine Nitrate Negative Urine Bilirubin Neg Prot Sulfosalicylic Acd Negative Urine Urobilinogen Norm Ur Leukocyte Esterase Negative Urine RBC 0-4 H Urine WBC 0-4 H Ur Squamous Epith Cells 0-4 H Amorphous Sediment 3+ Urine Bacteria Trace Cardiac Studies: No Data to Display
[2021-05-21] MEDS: acetaminophen 1,000 MG/100 ML PIGGYBACK 400 MG IV (15:25)
[2021-05-21] MEDS: CELEcoxib 200 mg Capsule 400 MG PO (15:30)
[2021-05-21] MEDS: sodium chloride 0.9% 1,000 ML 30 ML IV (15:39)
[2021-05-21] MEDS: vancomycin 1,000 MG in sodium chloride 0.9% 250 ML 250 MG IV (15:40)
--- NOTE | 2021-05-21 17:04 | SUR.OPER ---
family updated of surgical status
[2021-05-21] MEDS: vancomycin 1,000 MG SDV 1000 MG IRRIGATION (17:32)
--- NOTE | 2021-05-21 17:53 | XR_ITS ---
WS: [id number] C-ARM RADIOGRAPHS LEFT HIP; 3 IMAGES HISTORY: OR PICS COMPARISON: 05/20/2021 Intraoperative fixation of the comminuted fracture involving the LEFT hip. Gamma nail and short inter trochanteric michael. XR/XR hip LT 2-3V wo/w pel* [id number] IMPRESSION: Satisfactory fixation LEFT hip fracture now in good alignment.
--- NOTE | 2021-05-21 17:57 | PM.OP ---
Operative Report Date of procedure: May 21, 2021 Pre-op Diagnosis: Left Intertrochanteric Hip Fracture Post-op diagnosis: same Post-op Findings: Comminuted proximal femur fracture Procedure Done: Open reduction internal fixation left comminuted displaced intertrochanteric hip fracture Implants: Gamma 3 nail size 11 mm x 180 mm x 125 degrees with a proximal locking screw at 10.5 mm x 90 mm and a distal locking screw at 5 mm x 32.5 mm Specimens removed/disposition: None Pathology: none sent Surgeon: Kristin Smith Computer Teacher: [facility] operating room technicians Anesthesia: MAC (With spinal anesthesia) Estimated blood loss (mL): 100 IV fluids (mL): 800 IV fluids: Normal saline +250 mL albumin Urine output (mL): 100 Complications: None Findings: Significant comminution left intertrochanteric hip fracture Condition: stable Disposition: PACU (Then to floor for postoperative rehabilitation and pain management.) Brief History: This 80-year-old woman was in her usual state of health when she tripped over a transition in the floor. She fell to her left side and suffered the above fracture. She came to the emergency room for definitive treatment. This was explained to the patient and her daughter. Consents were signed and questions were answered preoperatively. Risks and complications were discussed as well. The patient and her daughter wish to proceed with the surgical intervention. Procedure: Patient was brought to the operating theater. After undergoing adequate spinal anesthesia with MAC, the patient was transferred to the fracture table, positioned on the table and fluoroscopic guidance obtained throughout the surgical procedure. Prior to the commencement of the surgical procedure, a surgical pause was performed. At the time of the surgical pause, we confirmed the site and side of surgery as well as preoperative surgical markings and appropriate and timely administration of IV antibiotics, vancomycin 1 g. Availability of equipment was also confirmed. Fluoroscopy was used to confirm the fracture was appropriately reduced in both AP and lateral planes. An incision was then made slightly above the greater trochanter to allow access to the greater trochanter. An awl was used to enter the greater trochanter and a guidewire was subsequently placed. Once the guidewire was confirmed to be in appropriate position in AP and lateral planes, reaming was accomplished over this to allow for the proximal diameter of the nail. Guidewire was then removed. An 11 mm x 180 mm x 125 degree [place] gamma 3 trochanteric nail was placed into appropriate position with positioning being confirmed in AP and lateral planes on the x-ray. It passed without difficulty. Guidewire was then passed through the jigging system into the femoral head. We wanted to be center or slightly inferior and posterior to center. Guidewire was placed into appropriate position. Once the guidewire was in appropriate position and this position was confirmed by x-ray. This was then measured and we chose a 10.5 mm x 90 mm lag screw. We reamed to allow for the lag screw to be placed. The 10.5 mm x 90 mm lag screw was then passed into the femoral head through the trochanteric nail. This was passed uneventfully and again position was confirmed in AP and lateral planes. Compression was obtained under fluoroscopic guidance. The set screw was then placed in position, tightened completely, and subsequently backed off one-eighth turn. The construct was left in position and attention was directed distally. Cannulas were again used to determine appropriate placement for the distal screw. This was placed in position without difficulty. It was measured off of the drill. The appropriate length screw was then obtained and placed in position without difficulty. Once the screw was in position, we confirmed appropriate placement of the components, and we removed the jigging system. Attention was then directed to closure. The hip was copiously irrigated with normal saline with antibiotics. Following this it was dried and closed. Tensor fascia rinku was closed proximally with 0 Vicryl in an interrupted fashion. Subcutaneous tissues were closed with 2-0 Monocryl, and the skin was closed with a continuous 3-0 Monocryl subcuticular stitch. This was then covered with Dermabond Prineo and Opsites. The patient was removed from the fracture table and returned to recovery in satisfactory condition. The patient will be discharged to the floor for postoperative rehabilitation and pain management. There were no specimens obtained. Associated Problem List Diagnoses (1) Closed intertrochanteric fracture of left hip: Qualifiers: Encounter type: initial encounter Fracture alignment: displaced Qualified Code(s): S72.142A - Displaced intertrochanteric fracture of left femur, initial encounter for closed fracture
--- NOTE | 2021-05-21 18:12 | SUR.PHASEI ---
1754 PATIENT TO PACU FROM OR. RR EVEN AND UNLABORED. SPO2 100% ON SIMPLE MASK AT 6L. DRESSING TO LEFT HIP, CDI.
[2021-05-21 18:38] LABS: Coronavirus Test Green County Not Detected
--- NOTE | 2021-05-21 18:39 | ANE.PACU2 ---
Inpatient post-anesthesia follow up: Airway intact: Yes Vital signs: Temperature 98.8 F Pulse Rate [Monito r] 75 Pulse Rate 104 Respiratory Rate 10 Blood Pressure [Ri ght Arm] 178/86 Blood Pressure 109/63 Pulse Oximetry 100 Oxygen Delivery Me thod Room Air Oxygen Flow Rate 6 Fraction of Inspir ed Oxygen Hydration adequate: Yes Nausea and vomiting: No Pain level: 2 Mental status: Baseline
[2021-05-21 18:50] LABS: Iron 45 ug/dL (37-145); Percent Saturation 20.7 % (20-50); Total Iron Binding Capacity 217 mcg/dl; Unsaturated Iron Binding 172 ug/dL (112-347)
--- NOTE | 2021-05-21 18:50 | SUR.PHASEI ---
1837 PATIENT TO MED SURG AT THIS TIME. DAUGHTER AT BEDSIDE. PT DENIES PAIN. DRESSING TO LEFT HIP, CDI W FIRST ICE IN PLACE.
[2021-05-21] MEDS: acetaminophen 500 mg Tablet 1000 MG PO (22:49)
[2021-05-22 03:27] VITALS: BP 95/58; PULSE 75; RESP 16; TEMP 36.8; O2SAT 95
[2021-05-22] MEDS: acetaminophen 500 mg Tablet 1000 MG PO (06:53)
[2021-05-22 07:04] LABS: Basophils % 0.3 %; Hemoglobin 8.7 g/dL (11.5-15.3); Lymphocytes # 0.7 10^3/uL (0.8-4.8); Lymphocytes % 9.4 %; Mean Corpuscular HGB Conc 31.1 g/dL (30.0-36.0); Mean Corpuscular Hemoglobin 31.1 pg (28.0-34.0); Mean Platelet Volume 11.5 fL (7.4-10.4); Monocytes % 14.1 %; Neutrophils # 5.23 10^3/uL (1.8-7.7); Neutrophils % 75.8 %; Nucleated Red Blood Cells % 0 %; Platelet Count 144 10^3/cmm (130-400); Red Cell Distribution Width 12.7 % (12.1-15.1); White Blood Count 6.9 10^3/uL (4.0-10.0)
[2021-05-22 07:21] LABS: Alanine Aminotransferase 9 U/L (0-33); Albumin Level 3.3 g/dL (3.5-5.2); Alkaline Phosphatase 32 IU/L (35-105); Anion Gap 11.4 (5-19); Aspartate Amino Transferase 15 U/L (0-32); Blood Urea Nitrogen 18 mg/dL (8-23); Calcium 7.9 mg/dL (8.5-10.5); Carbon Dioxide 24 mmol/L (22-29); Chloride 106 mmol/L (98-107); Chol HDL Ratio 2.29 mg/dL (0.0-4.40); Cholesterol 117 mg/dL (0-200); Ferritin 288 ng/mL (15-150); Globulin 1.9 g/dL (1.3-4.6); Glucose 132 mg/dL (65-115); HDL Cholesterol 51 mg/dL (60-100); LDL Cholesterol Calculated 52 mg/dL (50-129); Osmolality Calculated 288 mOsm/kg (285-295); Potassium 4.4 mmol/L (3.5-5.1); Sodium 137 mmol/L (136-145); Total Bilirubin 0.4 mg/dL (0.15-1.2); Total Protein 5.2 g/dL (6.6-8.7); Triglycerides 68 mg/dL (0-150); VLDL Cholestrol Calculation 14 mg/dL (0-30)
[2021-05-22 08:00] VITALS: BP 115/67; PULSE 85; RESP 14; TEMP 36.7; O2SAT 96
[2021-05-22] MEDS: HYDROcodone-acetaminophen 5-325 mg Tablet 1 TAB PO ×2 (08:27→14:48)
[2021-05-22] MEDS: metoprolol tartrate 25 mg Tablet PO ×2 (08:28→21:12)
[2021-05-22] MEDS: CELEcoxib 100 mg Capsule PO ×2 (08:28→17:25)
[2021-05-22] MEDS: aspirin 325 mg EC Tablet PO (08:29)
[2021-05-22 08:48] LABS: Estmated Average Glucose 88; Hemoglobin A1C 4.7 % (4.0-6.0)
[2021-05-22 12:00] VITALS: BP 110/68; PULSE 62; RESP 14; TEMP 36.9; O2SAT 93
[2021-05-22 12:42] LABS: Folate Level 18.4 ng/mL (4.8-37.3)
--- NOTE | 2021-05-22 14:44 | PM.PN ---
Subjective Subjective: Interval history: No acute events overnight. Patient lying comfortably in bed on examination today post-ORIF day 1 today. Working well with physical therapy. States pain is well controlled. Denies any nausea vomiting, headache. Vitals/I&O/Wt Last Vital Signs Temp 98.4 F 05/22/21 12:00 Pulse 62 05/22/21 12:00 Resp 14 05/22/21 12:00 BP 110/68 05/22/21 12:00 Pulse Ox 93 05/22/21 12:00 05/21/21 05/22/21 05/22/21 22:59 06:59 14:59 Intake Total 430 / 430 120 / 120 Output Total 300 / 300 215 / 515 Balance 130 / 130 -215 / -85 120 / 120 Weight last 48 hrs Weight 53.07 kg Physical Exam Narrative: EXAM NARRATIVE: General: No acute distress, AO x3 HEENT: PERRLA, pupils bilaterally equal and reactive, pallors not present Chest: Normal vesicular breath sounds, no added sounds, equal good air entry bilaterally CVS: S1-S2 regular, no murmurs, no tachycardia, no gallops, no rubs Abdomen: Soft, nontender, no organomegaly, bowel sounds present Neuro: No focal deficits, no facial deformity, AO x3, power 5/5 in all limbs Extremity: COMMON NORMALS: capillary refill normal and no clubbing, cyanosis or edema; negative for full ROM Urinary Catheter Management^: Britt: Cath Placed During This Visit: yes, but has since been removed by the nurse Reason for Continuing Indwelling Catheter: Decision to DC Catheter Urinary Catheter Date of Insertion: 05/20/21 Date Urinary Catheter Removed: 05/22/21 Time Urinary Catheter Discontinued: 12:32 Data : 05/22/21 06:50 05/22/21 06:50 A&P Assessment and plan (1) Fall: Mechanical Status: Acute (2) Closed intertrochanteric fracture of left hip: Post op day 1. Remove Britt catheter. [place] every 8 hours as needed and Celebrex 100 twice daily for pain control. Physical therapy, touch weightbearing, anticoagulation aspirin orthopedics. Repeat hemoglobin in the evening to monitor. We will transfuse if hemoglobin drops below 8. Recent history of chest pain which was extensively worked up, patient underwent a coronary angiogram which did not find evidence of grossly obstructive CAD, he has been continued on medical management. No current complaints of chest pain dyspnea or palpitations. No medical contraindication to proceed with moderately high risk procedure. Status: Acute Qualifiers: Encounter type: initial encounter Fracture alignment: displaced Qualified Code(s): S72.142A - Displaced intertrochanteric fracture of left femur, initial encounter for closed fracture (3) Benign essential HTN: Goal blood pressure less than 140/90 mmHg. Continue metoprolol but with prolonged divided dose of 25 mg tartrate twice daily. If needed can add low-dose amlodipine. Status: Acute (4) Hypothyroidism: Continue home dose of levothyroxine Status: Acute Qualifiers: Hypothyroidism type: acquired Qualified Code(s): E03.9 - Hypothyroidism, unspecified (5) Atherosclerotic heart disease: Status: Acute Qualifiers: Coronary Disease-Associated Artery/Lesion type: [place] artery [place] vs. transplanted heart: [place] heart Associated angina: without angina Qualified Code(s): I25.10 - Atherosclerotic heart disease of [place] coronary artery without angina pectoris Additional A&P Information DVT prophylaxis: Lovenox to start postoperatively Full code Cardiac diet postoperatively. Iron panel appreciated. Start on oral iron supplementation. TSH elevated. Check free T3 free T4, vitamin B12, folate. Discharge planning: If continues to do well and hemoglobin remained stable can plan for discharge tomorrow Home with home health. Attestations Medical Necessity Statement*: Requires further hospitalization for postop management of ORIF. Time Spent in Patient Care: Greater than 35 minutes (>than 50% of time spent in counselling and/or direct pt care on unit). Coding Level of Care Code Acute Meter Readers Supervisor for Chg Fwd Diagnoses Fall W19.XXXA Closed intertrochanteric fracture of left hip S72.142A Encounter type: initial encounter Fracture alignment: displaced Benign essential HTN I10 Hypothyroidism E03.9 Hypothyroidism type: acquired Atherosclerotic heart disease I25.10 Coronary Disease-Associated Artery/Lesion type: [place] artery [place] vs. transplanted heart: [place] heart Associated angina: without angina
[2021-05-22] MEDS: vancomycin 1,000 MG in sodium chloride 0.9% 250 ML 250 MG IV (14:46)
[2021-05-22 14:55] LABS: Vitamin B12 > 2000 pg/mL (232-1245)
[2021-05-22 16:19] LABS: Hematocrit 26.1 % (37.0-47.0); Hemoglobin 8.3 g/dL (11.5-15.3)
[2021-05-22 16:27] VITALS: BP 114/68; PULSE 60; RESP 16; TEMP 36.6; O2SAT 94
[2021-05-22] MEDS: ferrous gluconate 324 mg Tablet PO (17:26)
--- NOTE | 2021-05-22 18:05 | P.PN_ITS ---
Subjective Subjective: Interval history: Patient is seen in her room with her daughter and . She is sitting up eating and is very comfortable. She is hopeful for discharge to home and is in excellent spirits. She has done very well with physical therapy. Vitals/I&O/Wt Last Vital Signs Temp 97.8 F 05/22/21 16:27 Pulse 60 05/22/21 16:27 Resp 16 05/22/21 16:27 BP 114/68 05/22/21 16:27 Pulse Ox 94 05/22/21 16:27 05/22/21 05/22/21 05/22/21 06:59 14:59 22:59 Intake Total 120 / 120 250 / 370 Output Total 215 / 515 Balance -215 / -85 120 / 120 250 / 370 Weight last 48 hrs Weight 117 lb Physical Exam Const: COMMON NORMALS: no acute distress, patient oriented x3 and alert GENERAL APPEARANCE: cooperative and comfortable NUTRITIONAL APPEARANCE: thin ORIENTATION/CONSCIOUSNESS: Yes awake HENMT: COMMON NORMALS: normocephalic and atraumatic HEAD & SCALP: normocephalic and atraumatic Eye: GENERAL EYE: appearance normal, both eyes and all related structures Chest: COMMONS NORMALS: normal inspection of the chest Resp: COMMON NORMALS: normal respiratory effort EFFORT & INSPECTION: Yes able to speak in complete sentences and Yes symmetric chest movement Extremity: LEFT LOWER EXTREMITY: Yes hip joint (Dressing is clean and dry.) Left hip: Yes inspection (No erythema or ecchymosis.), Yes palpation (No tenderness.) and Yes neurovascular exam (Intact distally to motor and sensory function) Neuro: COMMON NORMALS: patient oriented x3 SENSORIUM/ORIENTATION: Yes alert Psych: COMMON NORMALS: mental status grossly normal APPEARANCE: Yes grossly normal ATTITUDE: Yes calm and Yes engaged ATTENTION/CONCENTRATION: Yes attention grossly intact Skin: COMMON NORMALS: no rashes or lesions noted GENERAL SKIN EXAM: no rashes or lesions noted Urinary Catheter Management^: Britt: Cath Placed During This Visit: yes, but has since been removed by the nurse Reason for Continuing Indwelling Catheter: Decision to DC Catheter Urinary Catheter Date of Insertion: 05/20/21 Date Urinary Catheter Removed: 05/22/21 Time Urinary Catheter Discontinued: 12:32 Data : 05/22/21 15:59 05/22/21 06:50 A&P Assessment and plan (1) Closed intertrochanteric fracture of left hip: The patient is seen in her room following open reduction internal fixation of her left significantly displaced intertrochanteric hip fracture utilizing a short gamma nail. She is in excellent spirits and has no complaints of pain. She is taking minimal pain medication. She worked with physical therapy and did very well. She is hopeful for discharge to home. She is advised that this will depend upon the medical service clearance for discharge. Hemoglobin is at 8.3, and she will need to maintain this for discharge. Status: Acute Qualifiers: Encounter type: initial encounter Fracture alignment: displaced Qualified Code(s): S72.142A - Displaced intertrochanteric fracture of left femur, initial encounter for closed fracture Attestations Medical Necessity Statement*: Hospitalization is required for ongoing medical care following open reduction internal fixation of left intertrochanteric hip fracture. Coding Level of Care Code Acute Out Of School Hours Care Worker for Ravi Osuna Diagnoses Closed intertrochanteric fracture of left hip S72.142A Encounter type: initial encounter Fracture alignment: displaced
[2021-05-22] MEDS: trazodone 50 mg Tablet 100 MG PO (21:13)
[2021-05-22 21:15] VITALS: BP 115/60; PULSE 72; RESP 18; TEMP 36.8; O2SAT 92
[2021-05-22] MEDS: levothyroxine 50 mcg Tablet PO (21:27)
[2021-05-22] MEDS: acetaminophen 325 mg Tablet 650 MG PO (21:27)
[2021-05-23] VITALS (10 sets, daily range): BP systolic 92–110; BP diastolic 49–62; PULSE 54–68; RESP 14–18; TEMP 36.3–37.2; O2SAT 94–100
--- NOTE | 2021-05-23 02:37 | PC.NURSE ---
Pt assisted to bedside commode and voided 200 mL. Will continue to monitor
[2021-05-23] MEDS: acetaminophen 500 mg Tablet 1000 MG PO ×2 (06:45→14:19)
[2021-05-23 07:09] LABS: Basophils % 0.5 %; Eosinophils # 0.1 10^3/uL (0.0-0.8); Eosinophils % 1.4 %; Hematocrit 24.4 % (37.0-47.0); Hemoglobin 7.7 g/dL (11.5-15.3); Lymphocytes # 0.9 10^3/uL (0.8-4.8); Lymphocytes % 13.2 %; Mean Corpuscular HGB Conc 31.6 g/dL (30.0-36.0); Mean Corpuscular Hemoglobin 31.4 pg (28.0-34.0); Mean Corpuscular Volume 99.6 fL (81-99); Mean Platelet Volume 12.2 fL (7.4-10.4); Monocytes # 0.9 10^3/uL (0.2-0.9); Monocytes % 13.2 %; Neutrophils # 4.72 10^3/uL (1.8-7.7); Neutrophils % 71.2 %; Nucleated Red Blood Cells % 0 %; Platelet Count 126 10^3/cmm (130-400); Red Blood Count 2.45 10^6/uL (4.1-5.3); White Blood Count 6.6 10^3/uL (4.0-10.0)
[2021-05-23 07:32] LABS: Alanine Aminotransferase 10 U/L (0-33); Alkaline Phosphatase 39 IU/L (35-105); Anion Gap 10.4 (5-19); Aspartate Amino Transferase 18 U/L (0-32); Blood Urea Nitrogen 31 mg/dL (8-23); Calcium 7.8 mg/dL (8.5-10.5); Carbon Dioxide 24 mmol/L (22-29); Chloride 104 mmol/L (98-107); Glucose 96 mg/dL (65-115); Osmolality Calculated 284 mOsm/kg (285-295); Potassium 4.4 mmol/L (3.5-5.1); Sodium 134 mmol/L (136-145); Total Bilirubin 0.3 mg/dL (0.15-1.2)
[2021-05-23] MEDS: CELEcoxib 100 mg Capsule PO ×2 (09:53→18:13)
[2021-05-23] MEDS: aspirin 325 mg EC Tablet PO (09:54)
[2021-05-23] MEDS: ferrous gluconate 324 mg Tablet PO ×2 (09:54→18:14)
[2021-05-23] MEDS: metoprolol tartrate 25 mg Tablet PO (09:54)
[2021-05-23] MEDS: sodium chloride 0.9% (100 ml) 100 ML (13:50)
--- NOTE | 2021-05-23 15:24 | P.DS_ITS ---
Discharge Providers Date of Admission: 05/21/21 18:15 Date of Discharge: May 23, 2021 Attending Provider at Admission: Kristin Smith MD Attending Provider at Discharge: Kristin Smith MD Primary Care Provider: Kassy Michel MD Diagnoses at Discharge Discharge Diagnosis (1) Closed intertrochanteric fracture of left hip: Status: Acute Qualifiers: Encounter type: initial encounter Fracture alignment: displaced Qualified Code(s): S72.142A - Displaced intertrochanteric fracture of left femur, initial encounter for closed fracture Reason for Visit Reason for Visit: fall/ deformity Hospital Course Hospital Course Deedee Mcneill is a 80 year old female recently admitted to hospital with the complaints of chest pain and elevated troponin T. 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 She had an FFR, was within normal limits. Based on this, it was decided to treat her medically. Findings were thought to be related to coronary spasm. She was found to be anemic. Had 1 unit of blood transfusion. She was discharged on Plavix, statins, imdur. Thereafter on follow up with cardiology, imdur was stopped due to headaches. She returns today with c/o sustaining a mechanical fall found to have a comminuted displaced left intertrochanteric femur fracture. Patient went to the hospital for further management of closed intertrochanteric fracture of left hip. Ortho was consulted and she underwent ORIF on May 22. Patient tolerated procedure well. Postprocedure patient was found to have anemia for which she required 1 unit of PRBC transfusion. She was also found to have mild FANI for which she was given IV hydration. Patient was advised to continue admission for 1 more day but she was eager to go home. Decided to discharge patient home with home health with advised to follow-up with her primary care provider within next 3 to 5 days for repeat CBC and BMP. Patient was advised in detail to monitor intake and output. Family was at bedside and they were agreeable. Physical Exam Narrative: EXAM NARRATIVE: General: No acute distress, AO x3 HEENT: PERRLA, pupils bilaterally equal and reactive, pallors not present Chest: Normal vesicular breath sounds, no added sounds, equal good air entry bilaterally CVS: S1-S2 regular, no murmurs, no tachycardia, no gallops, no rubs Abdomen: Soft, nontender, no organomegaly, bowel sounds present Neuro: No focal deficits, no facial deformity, AO x3, power 5/5 in all limbs Extremity: COMMON NORMALS: capillary refill normal and no clubbing, cyanosis or edema; negative for full ROM Urinary Catheter Management^: Britt: Cath Placed During This Visit: yes, but has since been removed by the nurse Reason for Continuing Indwelling Catheter: Decision to DC Catheter Urinary Catheter Date of Insertion: 05/20/21 Date Urinary Catheter Removed: 05/22/21 Time Urinary Catheter Discontinued: 12:32 Discharge Data Data Completed and Pending: Completed Studies During Hospitalization Category Date Time Status XR chest 1V ellen ble [id number] Stat Exams 05/20/21 18:12 Completed XR femur LT min 2 V* [id number] Stat Exams 05/20/21 18:16 Completed XR pelvis 1-2V* [id number] Stat Exams 05/20/21 18:12 Completed Pending at discharge Category Date Time Status C-arm Fluoroscopy [id number] Routine Exams 05/21/21 10:00 Taken XR hip LT 2-3V wo /w pel* [id number] Rout ine Exams 05/21/21 17:53 Taken Basic Metabolic P heriberto Routine Lab 05/23/21 15:00 Ordered Hemoglobin and He matocrit Routine Lab 05/23/21 15:00 Ordered Labs from last 24 hours 05/23/21 05/23/21 05/22/21 05:25 05:25 15:59 WBC 6.6 RBC 2.45 L Hgb 7.7 L 8.3 L Hct 24.4 L 26.1 L MCV 99.6 H MCH 31.4 MCHC 31.6 RDW 13.0 Plt Count 126 L MPV 12.2 H Neut % (Auto) 71.2 Lymph % (Auto) 13.2 Gonzales % (Auto) 13.2 Eos % (Auto) 1.4 Baso % (Auto) 0.5 Neut # (Auto) 4.72 Lymph # (Auto) 0.9 Gonzales # (Auto) 0.9 Eos # (Auto) 0.1 Baso # (Auto) 0.0 Nucleated RBC % (a uto) 0 Nucleated RBCs # 0.0 Sodium 134 L Potassium 4.4 Chloride 104 Carbon Dioxide 24 Anion Gap 10.4 BUN 31 H Creatinine 1.7 H GFR Calculation Not Reportable Glucose 96 Calculated Osmolal ity 284 L Calcium 7.8 L Total Bilirubin 0.3 AST 18 ALT 10 Alkaline Phosphata se 39 Total Protein 5.0 L Albumin 3.0 L Globulin 2.0 Blood Type Rho(D) Type Antibody Screen Crossmatch 05/20/21 19:00 WBC RBC Hgb Hct MCV MCH MCHC RDW Plt Count MPV Neut % (Auto) Lymph % (Auto) Gonzales % (Auto) Eos % (Auto) Baso % (Auto) Neut # (Auto) Lymph # (Auto) Gonzales # (Auto) Eos # (Auto) Baso # (Auto) Nucleated RBC % (a uto) Nucleated RBCs # Sodium Potassium Chloride Carbon Dioxide Anion Gap BUN Creatinine GFR Calculation Glucose Calculated Osmolal ity Calcium Total Bilirubin AST ALT Alkaline Phosphata se Total Protein Albumin Globulin Blood Type A Negative Rho(D) Type Negative / 0 Antibody Screen Negative Crossmatch See Detail Addt'l Data from Hospital Stay: Laboratory Results WBC 6.6 10^3/uL (4.0- 10.0) 05/23/21 05:25 RBC 2.45 10^6/uL (4.1 -5.3) L 05/23/21 05:25 Hgb 7.7 g/dL (11.5-15 .3) L 05/23/21 05:25 Hct 24.4 % (37.0-47.0 ) L 05/23/21 05:25 MCV 99.6 fL (81-99) H 05/23/21 05:25 MCH 31.4 pg (28.0-34. 0) 05/23/21 05:25 MCHC 31.6 g/dL (30.0-3 6.0) 05/23/21 05:25 RDW 13.0 % (12.1-15.1 ) 05/23/21 05:25 Plt Count 126 10^3/cmm (130 -400) L 05/23/21 05:25 MPV 12.2 fL (7.4-10.4 ) H 05/23/21 05:25 Neut % (Auto) 71.2 % 05/23/21 05:25 Lymph % (Auto) 13.2 % 05/23/21 05:25 Gonzales % (Auto) 13.2 % 05/23/21 05:25 Eos % (Auto) 1.4 % 05/23/21 05:25 Baso % (Auto) 0.5 % 05/23/21 05:25 Neut # (Auto) 4.72 10^3/uL (1.8 -7.7) 05/23/21 05:25 Lymph # (Auto) 0.9 10^3/uL (0.8- 4.8) 05/23/21 05:25 Gonzales # (Auto) 0.9 10^3/uL (0.2- 0.9) 05/23/21 05:25 Eos # (Auto) 0.1 10^3/uL (0.0- 0.8) 05/23/21 05:25 Baso # (Auto) 0.0 10^3/uL (0.0- 0.1) 05/23/21 05:25 Nucleated RBC % (a uto) 0 % 05/23/21 05:25 Nucleated RBCs # 0.0 /100WBC 05/23/21 05:25 Sodium 134 mmol/L (136-1 45) L 05/23/21 05:25 Potassium 4.4 mmol/L (3.5-5 .1) 05/23/21 05:25 Chloride 104 mmol/L (98-10 7) 05/23/21 05:25 Carbon Dioxide 24 mmol/L (22-29) 05/23/21 05:25 Anion Gap 10.4 (5-19) 05/23/21 05:25 BUN 31 mg/dL (8-23) H 05/23/21 05:25 Creatinine 1.7 mg/dL (0.5-0. 9) H 05/23/21 05:25 GFR Calculation Not Reportable 05/23/21 05:25 Glucose 96 mg/dL (65-115) 05/23/21 05:25 Estimat Average Gl ucose 88 05/22/21 06:50 Hemoglobin A1c 4.7 % (4.0-6.0) 05/22/21 06:50 Calculated Osmolal ity 284 mOsm/kg (285- 295) L 05/23/21 05:25 Calcium 7.8 mg/dL (8.5-10 .5) L 05/23/21 05:25 Iron 45 ug/dL (37-145) 05/20/21 19:00 TIBC 217 mcg/dl 05/20/21 19:00 % Saturation 20.7 % (20-50) 05/20/21 19:00 Unsat Iron Binding 172 ug/dL (112-34 7) 05/20/21 19:00 Ferritin 288 ng/mL (15-150 ) H 05/22/21 06:50 Total Bilirubin 0.3 mg/dL (0.15-1 .2) 05/23/21 05:25 AST 18 U/L (0-32) 05/23/21 05:25 ALT 10 U/L (0-33) 05/23/21 05:25 Alkaline Phosphata se 39 IU/L (35-105) 05/23/21 05:25 Total Protein 5.0 g/dL (6.6-8.7 ) L 05/23/21 05:25 Albumin 3.0 g/dL (3.5-5.2 ) L 05/23/21 05:25 Globulin 2.0 g/dL (1.3-4.6 ) 05/23/21 05:25 Triglycerides 68 mg/dL (0-150) 05/22/21 06:50 Cholesterol 117 mg/dL (0-200) 05/22/21 06:50 LDL Cholesterol, C alc 52 mg/dL (50-129) 05/22/21 06:50 Total VLDL Cholest amisha 14 mg/dL (0-30) 05/22/21 06:50 HDL Cholesterol 51 mg/dL (60-100) L 05/22/21 06:50 Cholesterol/HDL Ra shelbi 2.29 mg/dL (0.0-4 .40) 05/22/21 06:50 Vitamin B12 > 2000 pg/mL (232 -1245) H 05/22/21 06:50 Folate 18.4 ng/mL (4.8-3 7.3) 05/21/21 19:00 TSH 4.60 uIU/mL (0.27 -4.20) H 05/20/21 19:00 Urine Color Yellow (Yellow) 05/20/21 23:06 Urine Appearance Hazy (CLEAR) A 05/20/21 23:06 Urine pH 8 (5-7) H 05/20/21 23:06 Ur Specific Gravit y 1.015 (1.005-1.0 30) 05/20/21 23:06 Urine Protein Neg (Negative) 05/20/21 23:06 Urine Glucose (UA) Norm (Normal) 05/20/21 23:06 Urine Ketones 1+ (Negative) H 05/20/21 23:06 Urine Blood Neg (Negative) 05/20/21 23:06 Urine Nitrate Negative (Negati ve) 05/20/21 23:06 Urine Bilirubin Neg (Negative) 05/20/21 23:06 Prot Sulfosalicyli c Acd Negative (Negati ve) 05/20/21 23:06 Urine Urobilinogen Norm mg/dL (Negat sonal) 05/20/21 23:06 Ur Leukocyte Miriam ase Negative (Negati ve) 05/20/21 23:06 Urine RBC 0-4 /hpf (0-2) H 05/20/21 23:06 Urine WBC 0-4 /hpf (0-5) H 05/20/21 23:06 Ur Squamous Epith Cells 0-4 /hpf (0-5) H 05/20/21 23:06 Amorphous Sediment 3+ /hpf 05/20/21 23:06 Urine Bacteria Trace /hpf (NONE) 05/20/21 23:06 Nasal/Oral COVID-1 9 PCR Not detected 05/20/21 23:06 Blood Type A Negative 05/20/21 19:00 Rho(D) Type Negative / 0 05/20/21 19:00 Antibody Screen Negative 05/20/21 19:00 Crossmatch See Detail 05/20/21 19:00 Impressions Chest X-Ray 05/20/21 18:12 IMPRESSION: 1. No acute findings. Pelvis X-Ray 05/20/21 18:12 IMPRESSION: 1. Comminuted left intertrochanteric femur fracture. Femur X-Ray 05/20/21 18:16 IMPRESSION: 1. Comminuted displaced left intertrochanteric femur fracture. Vitals: Last Vital Signs Temp 97.9 F 05/23/21 15:16 Pulse 63 05/23/21 15:16 Resp 18 05/23/21 15:16 BP 104/58 05/23/21 15:16 Pulse Ox 97 05/23/21 15:16 Discharge Plan Discharge Patient Disposition: Home Condition: Stable Prescriptions: New aspirin 325 mg Tablet,Delayed Release (Dr/Ec) 325 mg PO DAILY Qty: 30 RF: 0 celecoxib 100 mg Capsule 100 mg PO BID PRN (Reason: spasm) Qty: 10 RF: 0 ferrous gluconate 324 mg (37.5 mg iron) Tablet 324 mg PO BIDWM Qty: 60 RF: 0 Continued trazodone 50 mg tablet 100 mg PO BEDTIME RF: 0 furosemide 20 mg tablet 20 mg PO DAILY PRN (Reason: edema) Qty: 30 RF: 0 metoprolol succinate 25 mg tablet extended release 24 hr 12.5 mg PO DAILY Qty: 45 RF: 3 multivitamin Tablet 1 tab PO DAILY RF: 0 levothyroxine 50 mcg tablet 50 mcg PO DAILY@22 RF: 0 turmeric 400 mg Capsule 400 mg PO BID RF: 0 Vitamin C 1 tab PO BID RF: 0 zinc 1 cap PO DAILY RF: 0 Calcium + D 600 mg(1,500mg) -200 unit Tablet 1 tab PO DAILY RF: 0 Vitamin D3 125 mcg (5,000 unit) Tablet 125 mcg PO DAILY RF: 0 Fish Oil 350-600 mg Capsule 1 cap PO DAILY RF: 0 Discharge Orders: Discharge Order (Routine); Ordered 05/22/21 Ordered By: Kristin Smith Other Ambulatory Orders: DME: Walker (Order) Location: None Selected Ordered By: Kristin Smith Referrals: Kassy Michel MD [Primary Care Provider] - 4-7 days (Repeat CBC, BMP) Kristin Smith MD [Physician] - 2 weeks Discharge Diet: Cardiac Discharge Activity: Increase activity as tolerated, Limit activity as instructed, Use walker/crutches as instructed and As per PT/OT instructions Patient Instructions: Opioid Safety Activity Restrictions/Additional Instructions: May weight-bear as tolerated. Keep wound covered until the dressing comes off. Ice as needed. Please follow-up with your primary care provider within next 3 to 5 days for repeat CBC and BMP. Please monitor your intake and output at home. Please continue physical therapy after discussed in detail. Discharge Attestations Time Spent in Discharge Care*: greater than 30 min Specific Discharge Activities: educating patient, educating and/or supporting family/caregiver, discussing with pcp/other providers, discussing with rehabilitation caseworker/social workers/dc planners, documenting/other paperwork and evaluating patient/reviewing data Status at Discharge: Cognitive status at discharge: cognitively intact , Behavioral status at discharge: cooperative , Functional status at discharge: uses cane/walker Overall status at discharge: patient is back to baseline Quality Metrics Clinical Quality Measures During this hospital stay, did patient experience: None Coding Level of Care Code Acute Chg FW DC note Diagnoses Closed intertrochanteric fracture of left hip S72.142A Encounter type: initial encounter Fracture alignment: displaced
--- NOTE | 2021-05-23 16:05 | P.PN_ITS ---
Subjective Subjective: Interval history: Patient is seen in her room with her daughter. She is in bed and is very comfortable. She is hopeful for discharge to home and is in excellent spirits. This is pending results of her H&H after her blood was given today. She has done very well with physical therapy. Vitals/I&O/Wt Last Vital Signs Temp 97.9 F 05/23/21 15:16 Pulse 63 05/23/21 15:16 Resp 18 05/23/21 15:16 BP 104/58 05/23/21 15:16 Pulse Ox 97 05/23/21 15:16 05/23/21 05/23/21 05/23/21 06:59 14:59 22:59 Intake Total 120 / 850 1240 / 1240 450 / 1690 Output Total 500 / 700 400 / 400 Balance -380 / 150 840 / 840 450 / 1290 Physical Exam Const: COMMON NORMALS: no acute distress, patient oriented x3 and alert GENERAL APPEARANCE: cooperative and comfortable NUTRITIONAL APPEARANCE: thin ORIENTATION/CONSCIOUSNESS: Yes awake HENMT: COMMON NORMALS: normocephalic and atraumatic HEAD & SCALP: normocephalic and atraumatic Eye: GENERAL EYE: appearance normal, both eyes and all related structures Chest: COMMONS NORMALS: normal inspection of the chest Resp: COMMON NORMALS: normal respiratory effort EFFORT & INSPECTION: Yes able to speak in complete sentences and Yes symmetric chest movement Extremity: LEFT LOWER EXTREMITY: Yes hip joint Left hip: Yes inspection (No swelling or ecchymosis.), Yes palpation (Minimal tenderness.), Yes ROM (Not evaluated.) and Yes neurovascular exam (Intact distally.) Neuro: COMMON NORMALS: patient oriented x3 SENSORIUM/ORIENTATION: Yes alert Psych: COMMON NORMALS: mental status grossly normal APPEARANCE: Yes grossly normal ATTITUDE: Yes calm and Yes engaged ATTENTION/CONCENTRATION: Yes attention grossly intact Skin: COMMON NORMALS: no rashes or lesions noted GENERAL SKIN EXAM: no rashes or lesions noted Urinary Catheter Management^: Britt: Cath Placed During This Visit: yes, but has since been removed by the nurse Reason for Continuing Indwelling Catheter: Decision to DC Catheter Urinary Catheter Date of Insertion: 05/20/21 Date Urinary Catheter Removed: 05/22/21 Time Urinary Catheter Discontinued: 12:32 Data : 05/23/21 05:25 05/23/21 05:25 A&P Assessment and plan (1) Closed intertrochanteric fracture of left hip: The patient is seen in her room following open reduction internal fixation of her left significantly displaced intertrochanteric hip fracture utilizing a short gamma nail. She is in excellent spirits and has no complaints of pain. She is taking no narcotic pain medication. She worked with physical therapy yesterday and did very well. Today, she was unable to participate with therapy secondary to receiving blood. Her H&H today dropped from 8.3-7.7. She is hopeful for discharge to home. She is advised that this will depend upon the medical service clearance for discharge. Repeat H&H is pending. Status: Acute Qualifiers: Encounter type: initial encounter Fracture alignment: displaced Aleks lified Code(s): S72.142A - Displaced intertrochanteric fracture of left femur, initial encounter for closed fracture Attestations Medical Necessity Statement*: Ongoing medical management following ORIF intert rochanteric hip fracture. Coding Level of Care Code Acute Technical Support Coordinator for Ravi Osuna Diagnoses Closed intertrochanteric fracture of left hip S72.142A Encounter type: initial encounter Fracture alignment: displaced
[2021-05-23 17:42] LABS: Hematocrit 29.5 % (37.0-47.0); Hemoglobin 9.3 g/dL (11.5-15.3)
[2021-05-23 18:03] LABS: Anion Gap 10.9 (5-19); Blood Urea Nitrogen 31 mg/dL (8-23); Carbon Dioxide 22 mmol/L (22-29); Chloride 102 mmol/L (98-107); Glucose 132 mg/dL (65-115); Osmolality Calculated 280 mOsm/kg (285-295); Potassium 3.9 mmol/L (3.5-5.1); Sodium 131 mmol/L (136-145)
[2021-05-23] MEDS: HYDROcodone-acetaminophen 5-325 mg Tablet 1 TAB PO (18:14)
== END 2021-05-23 18:47 | disposition home or self-care (01) | DRG 481 ==
LOC: ER 23:48 → ER IP 05-21 06:54 → OR 05-21 13:21 → MEDSURG 05-21 18:15
PROVIDERS: Student in an Organized Health Care Education/Training Program; Admitting Provider Specialist; Emergency Provider Emergency Medicine; PCP Family Medicine; Visit Provider Specialist
PROC: 0QS706Z Reposition Left Upper Femur with Intramedullary Internal Fixation Device, Open Approach (ICD-10-PCS; CPT 27245; principal; 2021-05-21 14:15)
DX: S72.142A Displaced intertrochanteric fracture of left femur, initial encounter for closed fracture (principal); D62 Acute posthemorrhagic anemia; N17.9 Acute kidney failure, unspecified; W01.0XXA Fall on same level from slipping, tripping and stumbling without subsequent striking against object, initial encounter; I10 Essential (primary) hypertension; G47.00 Insomnia, unspecified; E03.9 Hypothyroidism, unspecified; I25.10 Atherosclerotic heart disease of native coronary artery without angina pectoris; Z86.74 Personal history of sudden cardiac arrest
CPT/HCPCS: 36415; 36430; 51702; 71045; 72170; 73502; 73552; 76000; 80048; 80053; 80061; 81001; 82607; 82728; 82746; 83036; 83540; 83550; 84443; 85014; 85018; 85025; 86850; 86900; 86920; 87635; 93005; 96365; 96375; 96376; 97116; 97161; 97165; 97530; 99285; A9281; C1713; J2270; J2405; J2704; J3010; J3370; J3490; J7030; J7050; P9016; P9041

== ENCOUNTER 2021-06-11 15:25 | Outpatient (CLI) | payer MEDICARE, OTHER, SELFPAY ==
--- NOTE | 2021-06-11 | USCV_ITS ---
Osito Cleveland Age: 80 Gender: F : 1940 Exam Date: 06/11/2021 16:08 Ordering Phys: Kassy Michel MD Technologist: Catrachita Sheppard Exam Location: [facility] [place] Indication: LLE EDEMA AND PAIN HISTORY: Lower extremity edema. Lower extremity pain. Status post hip surgery. PROCEDURES: Venous duplex imaging was performed in only the left lower extremity. The following venous structures were evaluated: common femoral vein, profunda vein, proximal portion of the greater saphenous vein, superficial femoral vein, and the popliteal vein. In addition, the posterior tibial and peroneal trunk were evaluated. Serial compression, augmentation maneuvers, and spectral Doppler flow evaluation were performed. FINDINGS: Normal 2-D Doppler and augmentation and compressibility throughout the lower extremity venous structures. Additional imaging through the proximal calf veins also reveals no thrombus. Limited evaluation of the greater saphenous vein is patent with no thrombus.. There is subcutaneous left lower extremity edema noted. CONCLUSIONS No DVT left lower extremity. Subcutaneous edema. Dr. Annie Dodd DO (Electronically Signed) Final Date: 11 June 2021 16:22 S
== END 2021-06-11 15:26 | disposition home or self-care (01) ==
LOC: RAD 15:30
PROVIDERS: PCP Family Medicine; Visit Provider Family Medicine
DX: R60.0 Localized edema (principal); M79.605 Pain in left leg
CPT/HCPCS: 93971

== ENCOUNTER → 2021-06-16 13:05 | Outpatient (BNVA) | payer MEDICARE, OTHER, SELFPAY | PROVIDERS: PCP Family Medicine; Visit Provider Specialist | DX: S72.142A Displaced intertrochanteric fracture of left femur, initial encounter for closed fracture (principal); X58.XXXA Exposure to other specified factors, initial encounter | CPT/HCPCS: 73502 ==

== ENCOUNTER → 2021-08-02 14:12 | Outpatient (BNVA) | payer MEDICARE, OTHER, SELFPAY | PROVIDERS: PCP Family Medicine; Visit Provider Specialist | DX: S72.142A Displaced intertrochanteric fracture of left femur, initial encounter for closed fracture (principal); X58.XXXA Exposure to other specified factors, initial encounter | CPT/HCPCS: 73502 ==

== ENCOUNTER → 2021-08-24 10:07 | Day surgery (SDC) | payer MEDICARE, OTHER, SELFPAY ==
[2021-08-24] MEDS: denosumab 60 mg SDV SUBCUT (10:43)
[2021-08-24 10:51] VITALS: BP 152/80; PULSE 67; RESP 18; TEMP 36.4; O2SAT 98; BMI 18.0
--- NOTE | 2021-08-24 14:08 | PC.NURSE ---
1020- Pt here for Prolia injection. Has had a Calcium level on 08/16/[address] Michel said we could use that lab work and did not have to draw another one.
== END ==
PROVIDERS: PCP Family Medicine; Visit Provider Family Medicine
DX: M81.0 Age-related osteoporosis without current pathological fracture (principal)
CPT/HCPCS: 96372; J0897

== ENCOUNTER → 2021-10-04 14:02 | Outpatient (BNVA) | payer MEDICARE, OTHER, SELFPAY | PROVIDERS: PCP Family Medicine; Visit Provider Specialist | DX: S72.142D Displaced intertrochanteric fracture of left femur, subsequent encounter for closed fracture with routine healing (principal); X58.XXXD Exposure to other specified factors, subsequent encounter | CPT/HCPCS: 73502 ==

== ENCOUNTER → 2021-11-16 14:30 | Outpatient (BNVA) | payer MEDICARE, OTHER, SELFPAY | PROVIDERS: PCP Family Medicine; Visit Provider Internal Medicine | DX: D50.8 Other iron deficiency anemias (principal); R00.2 Palpitations; Z09 Encounter for follow-up examination after completed treatment for conditions other than malignant neoplasm; I10 Essential (primary) hypertension; I47.1 Supraventricular tachycardia | CPT/HCPCS: 80048; 83880; 85025 ==

== ENCOUNTER → 2021-12-02 09:28 | Outpatient (BNVA) | payer MEDICARE, OTHER, SELFPAY | PROVIDERS: PCP Family Medicine; Visit Provider Internal Medicine | DX: D50.8 Other iron deficiency anemias (principal); R60.9 Edema, unspecified; I11.0 Hypertensive heart disease with heart failure; I73.9 Peripheral vascular disease, unspecified | CPT/HCPCS: 80048; 83880 ==

== ENCOUNTER → 2022-01-18 12:42 | Outpatient (BNVA) | payer MEDICARE, OTHER, SELFPAY | PROVIDERS: PCP Family Medicine; Visit Provider Internal Medicine | DX: Z09 Encounter for follow-up examination after completed treatment for conditions other than malignant neoplasm (principal); D50.8 Other iron deficiency anemias; I10 Essential (primary) hypertension; I25.10 Atherosclerotic heart disease of native coronary artery without angina pectoris | CPT/HCPCS: 99214 ==

== ENCOUNTER 2022-01-26 09:37 | Outpatient (CLI) | payer MEDICARE, OTHER, SELFPAY ==
--- NOTE | 2022-01-26 09:47 | MM_ITS ---
WS: [id number] BILATERAL 3D TOMOSYNTHESIS DIGITAL SCREENING MAMMOGRAPHY WITH CAD CLINICAL INFORMATION: SCREENING HISTORY: Screening mammogram. No current complaints. COMPARISON: November 25, 2020 TECHNIQUE: Bilateral CC and MLO views. FINDINGS: Scattered fibroglandular densities bilaterally. 5 mm increasing asymmetric density upper outer RIGHT breast. Recommend RIGHT diagnostic mammography and ultrasound for further evaluation. LEFT breast is unremarkable and unchanged. MM/[place] [id number] IMPRESSION: BI-RADS: 0-Incomplete: Need additional imaging evaluation FOLLOW UP: Need Additional Imaging Recommend RIGHT breast diagnostic mammography and ultrasound.
== END 2022-01-26 09:38 | disposition home or self-care (01) ==
LOC: RADSHAW 09:38
PROVIDERS: PCP Family Medicine; Visit Provider Family Medicine
DX: Z12.31 Encounter for screening mammogram for malignant neoplasm of breast (principal)
CPT/HCPCS: 77063; 77067

== ENCOUNTER 2022-02-15 09:16 | Outpatient (CLI) | payer MEDICARE, OTHER, SELFPAY ==
--- NOTE | 2022-02-15 09:26 | MM_ITS ---
WS: [id number] RIGHT 3D TOMOSYNTHESIS DIGITAL MAMMOGRAPHY WITH CAD CLINICAL INFORMATION: ABNORMAL MAMMOGRAM COMPARISON: January 26, 2022 TECHNIQUE: 3 views of the right breast were obtained. FINDINGS: Scattered fibroglandular densities of the right breast. 5 mm asymmetric density upper outer RIGHT kaylee ast partially compresses out today on the spot compression views and not as well seen today. Ultrasou nd is pending. ULTRASOUND BREAST RIGHT TECHNIQUE: Ultrasound right breast focused area of concern. CLINICAL INFORMATION: ABNORMAL MAMMOGRAM COMPARISON: None. FINDINGS: Ultrasound RIGHT breast at the 9 to 12:00 position. Normal underlying parenchymal tissue. No cystic o r solid lesions. No suspicious lesions to target for biopsy. [facility]. MM/[place] [id number] IMPRESSION: BI-RADS: 2-Benign FOLLOW UP: 1 Year Follow-up Recommend return to annual screening mammography.
== END 2022-02-15 09:17 | disposition home or self-care (01) ==
LOC: RAD 09:19
PROVIDERS: PCP Family Medicine; Visit Provider Family Medicine
DX: R92.8 Other abnormal and inconclusive findings on diagnostic imaging of breast (principal)
CPT/HCPCS: 76642; 77061

== ENCOUNTER → 2022-03-08 09:35 | Day surgery (SDC) | payer MEDICARE, OTHER, SELFPAY ==
[2022-03-08 09:54] VITALS: BP 128/72; PULSE 57; RESP 18; TEMP 36.3; O2SAT 96
[2022-03-08 10:16] LABS: Calcium 9.3 mg/dL (8.5-10.5)
[2022-03-08] MEDS: denosumab 60 mg SDV SUBCUT (10:19)
--- NOTE | 2022-03-08 10:20 | PC.NURSE ---
Pt to GI lab infusions for Prolia injection. Calcium level from today noted at 9.3. Prolia given to right upper arm as ordered. Pt tolerated well.
== END ==
PROVIDERS: PCP Family Medicine; Visit Provider Family Medicine
DX: M81.0 Age-related osteoporosis without current pathological fracture (principal)
CPT/HCPCS: 36415; 82310; 96372; J0897

== ENCOUNTER → 2022-05-10 09:21 | Outpatient (BNVA) | payer MEDICARE, OTHER, SELFPAY | PROVIDERS: PCP Family Medicine; Visit Provider Podiatrist Foot & Ankle Surgery | DX: I73.9 Peripheral vascular disease, unspecified (principal); E11.8 Type 2 diabetes mellitus with unspecified complications; L60.3 Nail dystrophy; L84 Corns and callosities | CPT/HCPCS: 11055; 11721 ==

== ENCOUNTER → 2022-07-19 12:59 | Outpatient (BNVA) | payer MEDICARE, OTHER, SELFPAY | PROVIDERS: PCP Family Medicine; Visit Provider Internal Medicine | DX: I10 Essential (primary) hypertension (principal); D50.8 Other iron deficiency anemias; I47.1 Supraventricular tachycardia; Z79.01 Long term (current) use of anticoagulants | CPT/HCPCS: 99214 ==

== ENCOUNTER 2022-09-09 12:30 | Inpatient (IN) | payer MEDICARE, OTHER, SELFPAY ==
[2022-09-09] VITALS (26 sets, daily range): BP systolic 93–207; BP diastolic 54–105; PULSE 56–83; RESP 13–23; TEMP 36.6–37.6; O2SAT 88–100; BMI 18.4
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
--- NOTE | 2022-09-09 12:42 | XR_ITS ---
WS: [id number] Exam: XR chest 1V portable [id number] Date/Time of Exam: 09/09/2022 1:01 PM Reason For Exam: fall Comparison 05/20/2021. The lungs are fully inflated and clear. The heart is enlarged but unchanged in size. The mediastinum is normal in contour. Bony structures appear be intact. Degenerative change and mild levoscoliosis of the T-spine. XR/XR chest 1V portable [id number] IMPRESSION: 1. Mild cardiac enlargement unchanged. 2. No acute process.
--- NOTE | 2022-09-09 12:42 | CTR_ITS ---
PROCEDURE INFORMATION: Exam: CT Cervical Spine Without Contrast Exam date and time: 09/09/2022 1:06 PM Age: 82 years old Clinical indication: Injury or trauma; Fall; Concussion/head injury; Additional info: Fall on coumadin TECHNIQUE: Imaging protocol: Computed tomography of the cervical spine without contrast. Radiation optimization: All CT scans at this facility use at least one of these dose optimization techniques: automated exposure control; mA and/or kV adjustment per patient size (includes targeted exams where dose is matched to clinical indication); or iterative reconstruction. COMPARISON: CT head wo con* [id number] 04/05/2021 6:33 PM RADIATION DOSE METRICS: Total DLP (mGy-cm): 423.7 FINDINGS: Bones/joints: No fracture or other acute bony abnormality is seen in the cervical spine. Prominent chronic degenerative changes are present from C3-C7 with marked disc space narrowing sclerosis and osteophytes. Is moderate spinal stenosis at the C4-C5 level with bilateral neural foraminal narrowing. Lungs: Lung apices are normal. Soft tissues: Unremarkable. CT/CT cervical spin wo con* [id number] IMPRESSION: Prominent chronic degenerative disease. No acute abnormality.
--- NOTE | 2022-09-09 12:42 | XR_ITS ---
WS: [id number] Exam: XR hip RT 2-3V wo/w pel* [id number] Date/Time of Exam: 09/09/2022 1:01 PM Reason For Exam: fall, right hip pain There is a comminuted subtrochanteric fracture of the right hip with mild coxa vera deformity and miguel ángel rtening. Mild degenerative change of the joint compartment. XR/XR hip RT 2-3V wo/w pel* [id number] IMPRESSION: 1. Subtrochanteric fracture of the right hip with mild coxa vera deformity. 2. Degenerative change and osteopenia.
--- NOTE | 2022-09-09 12:42 | CTR_ITS ---
PROCEDURE INFORMATION: Exam: CT Head Without Contrast Exam date and time: 09/09/2022 1:06 PM Age: 82 years old Clinical indication: Injury or trauma; Fall; Concussion/head injury; Additional info: Fall on coumadin TECHNIQUE: Imaging protocol: Computed tomography of the head without contrast. Radiation optimization: All CT scans at this facility use at least one of these dose optimization techniques: automated exposure control; mA and/or kV adjustment per patient size (includes targeted exams where dose is matched to clinical indication); or iterative reconstruction. COMPARISON: CT head wo con* [id number] 04/05/2021 6:33 PM RADIATION DOSE METRICS: Total DLP (mGy-cm): 1193.4 FINDINGS: Brain: No intracranial hemorrhage, edema or other acute abnormality is seen in the brain. There is generalized chronic atrophy with prominence of the ventricles and sulci. There is decreased white matter density which is consistent with chronic small vessel white matter ischemia. No mass effect or midline shift. Cerebral ventricles: See Brain finding. Paranasal sinuses: Visualized sinuses are unremarkable. No fluid levels. Mastoid air cells: Visualized mastoid air cells are well aerated. Bones/joints: Unremarkable. No acute fracture. Soft tissues: Unremarkable. CT/CT head wo con* [id number] IMPRESSION: No acute intracranial abnormality.
--- NOTE | 2022-09-09 12:43 | ECG_ITS ---
[facility] Test Date: 2022-09-09 Pat Name: Deedee Mcneill Department: Room: Gender: Female Machine Wedger: : 1940 Requested By: Luisito Billings Order Number: [id number] Aguilar MD: Brenda Murillo M.D. Measurements Intervals [place] Rate: 58 P: 86 WI: 161 QRS: 85 QRSD: 85 T: 78 QT: 398 QTc: 393 Interpretive Statements SINUS BRADYCARDIA POSSIBLE LEFT ATRIAL ENLARGEMENT [-0.1mV P-WAVE IN V1/V2] POSSIBLE RIGHT VENTRICULAR CONDUCTION DELAY [RSR (QR) IN V1/V2] Compared to ECG 05/20/2021 18:46:01 Sinus rhythm no longer present Sinus arrhythmia no longer present T-wave abnormality no longer present Possible ischemia no longer present Electronically Signed On 09-09-2022 17:58:30 CDT by Brenda Murillo M.D. [id number]
[2022-09-09] MEDS: morphine 4 mg/mL SDV 1 mL IVP (12:53)
--- NOTE | 2022-09-09 13:19 | PC.PHAR ---
pt states she takes care of her own medications-pt states she is no longer taking norvasc 10mg daily filled 06/17/22 90d/s-pt states she takes lasix 20mg daily prn rx filled 01/18/22 90d/s for 20mg bid-
[2022-09-09 14:21] LABS: Basophils # 0.1 10^3/uL (0.0-0.1); Basophils % 0.7 %; Eosinophils % 0.3 %; Hematocrit 37.4 % (37.0-47.0); Hemoglobin 12.1 g/dL (11.5-15.3); Lymphocytes # 0.9 10^3/uL (0.8-4.8); Lymphocytes % 9.7 %; Mean Corpuscular HGB Conc 32.4 g/dL (30.0-36.0); Mean Corpuscular Hemoglobin 30.3 pg (28.0-34.0); Mean Corpuscular Volume 93.5 fl (81-99); Mean Platelet Volume 10.5 fL (7.4-10.4); Monocytes # 0.9 10^3/uL (0.2-0.9); Monocytes % 9.9 %; Neutrophils # 6.94 10^3/uL (1.8-7.7); Neutrophils % 78.6 %; Nucleated Red Blood Cells % 0 %; Platelet Count 233 10^3/cmm (130-400); Red Cell Distribution Width 12.5 % (12.1-15.1); White Blood Count 8.8 10^3/uL (4.0-10.0)
[2022-09-09 14:29] LABS: INR 2.04 (0.8-1.2)
[2022-09-09 14:38] LABS: Troponin(5th) Baseline 16 ng/L (0-10)
[2022-09-09 14:39] LABS: Alanine Aminotransferase 13 U/L (0-33); Albumin Level 3.8 g/dL (3.5-5.2); Alkaline Phosphatase 44 U/L (35-105); Anion Gap 12.3 (5-19); Aspartate Amino Transferase 17 U/L (0-32); Blood Urea Nitrogen 15 mg/dL (8-23); Calcium 9.9 mg/dL (8.5-10.5); Carbon Dioxide 29 mmol/L (22-29); Chloride 100 mmol/L (98-107); Glucose 127 mg/dL (65-115); Osmolality Calculated 286 mOsm/kg (285-295); Potassium 4.3 mmol/L (3.5-5.1); Sodium 137 mmol/L (136-145); Total Bilirubin 0.3 mg/dL (0.15-1.2); Total Protein 5.8 g/dL (6.6-8.7)
--- NOTE | 2022-09-09 14:43 | ECG_ITS ---
[facility] Test Date: 2022-09-09 Pat Name: Deedee Mcneill Department: Room: Gender: Female Echocardiologist: : 1940 Requested By: Luisito Billings Order Number: [id number] Aguilar MD: Brenda Murillo M.D. Measurements Intervals [place] Rate: 56 P: 83 UT: 168 QRS: 84 QRSD: 91 T: 78 QT: 426 QTc: 412 Interpretive Statements SINUS BRADYCARDIA POSSIBLE LEFT ATRIAL ENLARGEMENT [-0.1mV P-WAVE IN V1/V2] POSSIBLE RIGHT VENTRICULAR CONDUCTION DELAY [RSR (QR) IN V1/V2] Compared to ECG 09/09/2022 12:52:42 No significant changes Electronically Signed On 09-09-2022 18:00:50 CDT by Brenda Murillo M.D. [id number]
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
--- NOTE | 2022-09-09 16:04 | P.MISC_ITS ---
Miscellaneous Note Purpose of Documentation: Quick orthopedic note update: Orthopedics was consulted secondary to patient's right subtrochanteric femur fracture. Imaging reviewed demonstrating a displaced right subtrochanteric femur fracture. Plan will be for surgical fixation of long cephalomedullary nail utilizing [place] gamma implant. Patient is on Coumadin at baseline. Her INR 2.04. Spoke with hospitalist this will get optimized for surgical intervention tomorrow. Patient may have diet tonight. Nonweightbearing right lower extremity. Pain control. Hold a.m. anticoagulation tomorrow. Ice as needed. Goal for INR to be under 2. Patient will get vitamin K per the hospitalist team today. We will evaluate tomorrow morning with plan for surgical intervention. Feel free to contact myself for any questions or concerns Pasha Bradshaw, DO Orthopedic surgery
--- NOTE | 2022-09-09 16:11 | P.CONIM_ITS ---
Providers/Reason For Consult Consulting Physician/Specialty*: Pasha Bradshaw DO/orthopedic surgery Reason for Consult*: Right subtrochanteric femur fracture Requesting Physician: Dr. Billings Attending Physician: Arnoldo Lopez MD Primary Care Provider: Kassy Michel MD History of Present Illness History of Present Illness Deedee Mcneill is a 82 year old female presents to the emergency department with a ground-level fall and inability to bear weight with pain to the right hip. She was found to have a right subtrochanteric femur fracture on x-rays. Hospitalist team contacted and will be primary hospitalist admission. Orthopedic surgery team was consulted for treatment recommendations. History reveals patient had a left intertrochanteric femur fracture on the left side which she is went on to heal. Patient does have a history of A. fib and on Coumadin. She had her labs checked which her INR was 2.04. She had eaten earlier in the day. Patient states she lives at home. She does ambulate and has a community ambulator with debatable assistive devices. Denies any hip pain prior to injury. Denies any chest pain shortness of breath nausea or vomiting fever or chills. Patient denies any hitting of her head or loss of consciousness. Review of Systems General: Reports: 10 or more systems reviewed and unremarkable except in HPI and below Medications/Allergies Home Medications Medication Instructions Recorded Confirmed Last Taken Type trazodone 50 mg tablet 50 mg PO BEDTIME 11/19/19 09/09/22 03/07/22 History levothyroxine 50 mcg tablet 50 mcg PO DAILY@22 04/03/21 09/09/22 09/08/22 History multivitamin 1 tab PO DAILY 04/03/21 09/09/22 03/07/22 History turmeric 400 mg capsule 400 mg PO DAILY 04/03/21 09/09/22 03/07/22 History calcium carbonate 600 mg-vitamin 1 tab PO BID 05/20/21 09/09/22 03/07/22 History D3 5 mcg (200 unit) tablet cholecalciferol (vitamin D3) 125 125 mcg PO DAILY 05/20/21 09/09/22 03/07/22 History mcg (5,000 unit) tablet (Vitamin D3) omega-3s 350 kk-hia-heu-other 1 cap PO BID 05/20/21 09/09/22 09/09/22 History [id number] oil 600 mg capsule (Fish Oil) ferrous gluconate 324 mg (37.5 mg 324 mg PO QAM 08/24/21 09/09/22 09/09/22 History iron) tablet metoprolol succinate 25 mg 25 mg PO BID #180 tabs 01/18/22 09/09/22 09/09/22 Rx tablet,extended release 24 hr citalopram 10 mg tablet 10 mg PO QAM 06/13/22 09/09/22 09/09/22 History ascorbic acid (vitamin C) 500 mg 500 mg PO BID 09/09/22 09/09/22 09/09/22 History tablet (Vitamin C) furosemide 20 mg tablet 20 mg PO BID edema 09/09/22 09/09/22 Unknown History lisinopril 5 mg tablet 5 mg PO QAM 09/09/22 09/09/22 09/09/22 History potassium gluconate 595 mg (99 mg) 595 mg PO QAM 09/09/22 09/09/22 09/09/22 History tablet warfarin 5 mg tablet 5 mg PO BEDTIME 09/09/22 09/09/22 09/08/22 History zinc acetate 50 mg (zinc) capsule 50 mg PO DAILY 09/09/22 09/09/22 Unknown History Allergies Allergy/AdvReac Type Severity Reaction Status Date / Time amlodipine Allergy swelling Verified 09/09/22 13:21 penicillamine Allergy ALGY-Rash Verified 07/19/22 13:15 Penicillins Allergy Unknown Verified 09/09/22 13:02 Sulfa (Sulfonamide Allergy ALGY-Rash Verified 09/09/22 13:02 Antibiotics) PFSH Acute PFSH: Medical History Atherosclerotic heart disease Benign essential HTN Closed fracture of right wrist Fall Hypertension Hypothyroidism Ingrown toenail of left foot Insomnia Onychomycosis of toenail Thyroid disease Surgical History H/O section History of hip surgery History of surgery on wrist Hx of inguinal hernia repair Family History Grandfather Cancer Mother Hypertension Denies family history of Diabetes CAD (coronary artery disease) Clotting disorder Dementia Hyperlipidemia Psychiatric illness Chronic kidney disease (CKD) Suicide Anesthesia complication Bleeding disorder Family history of premature coronary artery disease Lung disease Stroke Social History Smoking and tobacco status: never smoked Alcohol intake: never Vitals/I&O/Wt Last Vital Signs Temp 97.8 F 09/09/22 12:38 Pulse 60 09/09/22 15:45 Resp 21 H 09/09/22 15:45 BP 161/75 09/09/22 15:45 Pulse Ox 100 09/09/22 15:45 O2 Del Method 09/09/22 12:43 Weight last 48 hrs Weight 118 lb Physical Exam Narrative: Examination patient's right hip is shortened and externally rotated, deformity noted to the right femur. Swelling noted to the right femur compartments are compressible and soft. Tenderness to palpation at fracture site. Positive logroll. Unable to perform Stinchfield secondary to pain. She can wiggle her toes plantarflex and dorsiflex ankle sensations intact to light touch to the SPN/DPN/tibial/saphenous/sural nerve distribution. Right lower extremity warm well perfused no tenderness palpation of the knee ankle or foot. Examination of the bilateral upper extremity joints demonstrates no tenderness to palpation of the shoulders elbows wrists or hands. She has full range of motion of these with no discomfort. Gross motor and sensation intact. Examination left lower extremity demonstrates no pain with logroll. She has no tenderness palpation of the left hip knee foot or ankle joints and normal range of motion without pain or discomfort. HENMT: COMMON NORMALS: normocephalic and atraumatic HEAD & SCALP: normocephalic and atraumatic Resp: COMMON NORMALS: normal respiratory effort and No retractions Cardio: COMMON NORMALS: Peripheral pulses 2+ throughout PERIPHERAL PULSES: Peripheral pulses 2+ throughout Urinary Catheter Management: Britt: Cath Placed During This Visit: yes Urinary Catheter Date of Insertion: 09/09/22 Data : 09/10/22 04:43 09/10/22 04:43 Xray Ortho: My impression: Multiple x-rays AP pelvis the right femur and right knee films reviewed and demonstrate a displaced right subtrochanteric femur fracture. Patient has a history of a healed left intertrochanteric femur fracture. A&P Assessment and plan (1) Closed subtrochanteric fracture: Plan N.p.o. at midnight, may have diet today Reviewed labs INR 2.04. Patient will be given vitamin K today to better optimize and bring down INR for surgery tomorrow spoke with hospitalist they are managing. Hospitalist is primary Nonweightbearing right lower extremity Ice as needed Pain control Hold DVT prophylaxis in the a.m. day of surgery Plan for OR tomorrow for right subtrochanteric femur fracture open reduction internal fixation with a long cephalomedullary nail. Patient is a pleasant 82-year-old female who sustained a ground-level fall. She has a right subtrochanteric femur fracture that is displaced. History of a healed left intertrochanteric femur fracture. Had detailed discussion with patient as well as son is at bedside better treatment options as far as nonoperative and operative intervention. At this point time in order to early mobilize as well as pain control would recommend surgical intervention for right subtrochanteric femur fracture open reduction internal fixation with cephalomedullary nailing. Patient understands the risks which include but are not limited to make it better, make it worse, blood clot, heart attack, stroke, on the table, infection, malunion, nonunion, failed hardware. Understanding these risks she agrees to proceed with surgical intervention. We will get her optimized by hospitalist team and cleared for surgery tomorrow. Patient and family understand agree with current plan. All questions answered. Coding Level of Care Code Acute Microstrategy Developer for Ravi Osuna Diagnoses Closed subtrochanteric fracture S72.23XA Time Spent (min) 45
[2022-09-09] MEDS: HYDROmorphone 1 mg/mL INJ 1 mL IVP ×2 (16:14→20:11)
--- NOTE | 2022-09-09 16:21 | PC.NURSE ---
report called to SERGEY Laughlin on med surg
--- NOTE | 2022-09-09 16:26 | PC.NURSE ---
Dr Bradshaw at bedside talking with pt, plans for surgery tomorrow. okay to eat/drink tonight until midnight. NPO starting at midnight
--- NOTE | 2022-09-09 16:40 | XRR_ITS ---
PROCEDURE INFORMATION: Exam: XR Right Knee Exam date and time: 09/09/2022 4:50 PM Age: 82 years old Clinical indication: Pain; Knee; Right; Additional info: Femur fracture, 2 view TECHNIQUE: Imaging protocol: Radiologic exam of the Right knee. Views: 1 or 2 views. COMPARISON: No relevant prior studies available. FINDINGS: Bones/joints: Alignment is normal. No acute fracture. There is meniscal chondrocalcinosis in the medial and lateral compartment. Joint spaces are preserved. Soft tissues: Visible soft tissues are unremarkable. XR/XR knee RT 1-2V [id number] IMPRESSION: No acute findings.
--- NOTE | 2022-09-09 16:40 | XRR_ITS ---
PROCEDURE INFORMATION: Exam: XR Right Femur Exam date and time: 09/09/2022 4:50 PM Age: 82 years old Clinical indication: Pain; Thigh; Right; Additional info: Fall, fracture TECHNIQUE: Imaging protocol: Radiologic exam of the Right femur. Views: 2 views. COMPARISON: CR XR hip RT 2-3V wo/w pel* [id number] 09/09/2022 1:46 PM FINDINGS: Bones/joints: There is a displaced intertrochanteric and subtrochanteric fracture of the right femur. Femoroacetabular alignment is normal. The visible portion of the pelvis is intact. The distal femur is intact. Knee alignment is normal. Soft tissues: Visible soft tissues are unremarkable. XR/XR femur RT min 2V* [id number] IMPRESSION: Displaced intertrochanteric and subtrochanteric fracture of the right femur.
[2022-09-09 17:12] LABS: Troponin 5 2HR 16.15 ng/L (0-10)
[2022-09-09 17:13] LABS: Troponin 5 2HR Delta 0.15 ABS# (0-10)
[2022-09-09] MEDS: metoprolol succinate ER (24 HR) 25 mg Tablet PO (17:23)
[2022-09-09] MEDS: phytonadione (ADULT) 10 mg/mL Ampule 1 mL SUBCUT (17:23)
[2022-09-09] MEDS: ascorbic acid 500 mg Tablet PO (17:23)
[2022-09-09 17:30] LABS: NT Pro B Type Natriuretic Pept 897 pg/mL (0-450)
[2022-09-09 18:00] LABS: Add Urine Microscopic? NO; Charge for UA Resulting for Rev
[2022-09-09 18:03] LABS: Bilirubin Urine Neg (Negative); Blood Urine Neg (Negative); Glucose Urine UA Norm (Normal); Ketones Urine Negative (Negative); Leukocyte Esterase Urine Negative (Negative); Nitrate Urine Negative (Negative); Protein Urine Neg (Negative); Sulfosalicylic Acid Urine Negative (Negative); Urine Appearance Hazy (CLEAR); Urine Color Yellow (Yellow); Urobilinogen Urine Neg (Negative); pH Urine 8 (5-7)
--- NOTE | 2022-09-09 18:43 | ECG_ITS ---
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 Measurements Intervals [place] Rate: 64 P: 66 ID: [id number] QRS: 19 QRSD: 87 T: 49 QT: 418 QTc: 433 Interpretive Statements SINUS RHYTHM POSSIBLE LEFT ATRIAL ENLARGEMENT [-0.1mV P-WAVE IN V1/V2] POSSIBLE RIGHT VENTRICULAR CONDUCTION DELAY [RSR (QR) IN V1/V2] Compared to ECG 09/09/2022 14:42:51 Sinus bradycardia no longer present Electronically Signed On 09-10-2022 10:57:12 CDT by Brenda Murillo M.D. [id number]
[2022-09-09] MEDS: trazodone 50 mg Tablet PO (21:14)
[2022-09-09] MEDS: levothyroxine 50 mcg Tablet PO (21:14)
[2022-09-10] VITALS (35 sets, daily range): BP systolic 78–121; BP diastolic 43–64; PULSE 54–100; RESP 10–18; TEMP 36.1–37.3; O2SAT 87–100
--- NOTE | 2022-09-10 | XR_ITS ---
WS: [id number] Right femur and thigh, C-arm fluoroscopy views, 09/10/2022 Clinical Data: [facility] Comparison: Right thigh and femur, 09/09/2022 Findings: There is internal fixation of the right intertrochanteric subtrochanteric fracture with an oblique sc rew in the femoral neck and a long intramedullary michael. XR/XR femur RT 1V [id number] Impression: Internal fixation of right intertrochanteric subtrochanteric hip fracture.
--- NOTE | 2022-09-10 | SCC_ITS ---
146 seconds of fluoroscopic guidance, for a cumulative dose of 7.2 mGy, was provided to Dr. Bradshaw by the radiology department. C-arm images of the right femur were saved for the patient's permanent record. BERTHAD
[2022-09-10] MEDS: lisinopril 5 mg Tablet PO (05:17)
[2022-09-10] MEDS: ferrous gluconate 324 mg Tablet PO (05:17)
[2022-09-10] MEDS: citalopram 20 mg Tablet 10 MG PO (05:18)
[2022-09-10 05:30] LABS: Basophils % 0.4 %; Hematocrit 33.4 % (37.0-47.0); Hemoglobin 10.7 g/dL (11.5-15.3); Lymphocytes # 1.2 10^3/uL (0.8-4.8); Lymphocytes % 12.2 %; Mean Corpuscular Hemoglobin 30.9 pg (28.0-34.0); Mean Corpuscular Volume 96.5 fl (81-99); Mean Platelet Volume 10.7 fL (7.4-10.4); Monocytes # 1.5 10^3/uL (0.2-0.9); Monocytes % 15.2 %; Neutrophils # 6.92 10^3/uL (1.8-7.7); Neutrophils % 71.7 %; Nucleated Red Blood Cells % 0 %; Platelet Count 235 10^3/cmm (130-400); Red Blood Count 3.46 10^6/uL (4.1-5.3); Red Cell Distribution Width 12.9 % (12.1-15.1); White Blood Count 9.7 10^3/uL (4.0-10.0)
[2022-09-10] MEDS: HYDROmorphone 1 mg/mL INJ 1 mL IVP (05:32)
[2022-09-10 05:57] LABS: Anion Gap 13.7 (5-19); Blood Urea Nitrogen 20 mg/dL (8-23); Calcium 9.2 mg/dL (8.5-10.5); Carbon Dioxide 29 mmol/L (22-29); Chloride 101 mmol/L (98-107); Glucose 134 mg/dL (65-115); Magnesium 2.1 mg/dL (1.7-2.3); Osmolality Calculated 293 mOsm/kg (285-295); Phosphorus 5.1 mg/dL (2.5-4.5); Potassium 4.7 mmol/L (3.5-5.1); Sodium 139 mmol/L (136-145); Thyroid Stimulating Hormone 2.02 uIU/mL (0.27-4.20)
--- NOTE | 2022-09-10 07:27 | PC.NURSE ---
surgery Pt is going down to surgery and daughter Merari at bedside. Meds and Jewelry given to daughter. Bracelet and earings.
[2022-09-10 07:42] LABS: INR 1.91 (0.8-1.2)
--- NOTE | 2022-09-10 07:44 | ANES.PREANE2 ---
Pre-Anesthetic Assessment Height/Weight: Height 1.7 m Weight 53.524 kg Temp Pulse Resp BP Pulse Ox O2 Del Method O2 Flow Rate 98.7 F 64 16 96/51 95 2 09/10/22 07:35 09/10/22 07:35 09/10/22 07:35 09/10/22 07:35 09/10/22 07:35 09/10/22 07:35 09/10/22 04:00 Preop Diagnosis: Right subtrochanteric femur fracture Operation Date: 09/10/22 08:40 Proposed Procedures p Trochanteric Femoral Nail(Right) - Pasha Bradshaw, Familial anesthetic complications: none Was Beta Danny taken within 24 hours: Yes Was Clonidine taken within 24 hours: N/A Last intake: Intake Last Liquid Date 09/09/22 Last Solid Date 09/09/22 Last Intake: 22:00 Social No alcohol and No tobacco Exam alert, oriented x 3, clear to auscultation bilaterally and regular rate & rhythm Airway Submandibular: within normal limits Cervical ROM: within normal limits Mallampati: Class II Dentition: full Pulmonary None reported CV/HEM Atrial Fibrillation, Coronary Artery Disease, Hypertension and Myocardial Infarction None reported Hepatic None reported GI None reported Metabolic Thyroid Disease Musc/skel Lower Back Pain and Osteoarthritis/DJD Neuropsych None reported Anesthetic Plan ASA status: 3 Anesthesia: General Risk of > 500 ml blood loss (7ml/kg in children): No Medications/Allergies Home Medications Medication Instructions Recorded Confirmed Last Taken Type trazodone 50 mg tablet 50 mg PO BEDTIME 11/19/19 09/09/22 03/07/22 History levothyroxine 50 mcg tablet 50 mcg PO DAILY@04/03/21 09/09/22 09/08/22 History multivitamin 1 tab PO DAILY 04/03/21 09/09/22 03/07/22 History turmeric 400 mg capsule 400 mg PO DAILY 04/03/21 09/09/22 03/07/22 History calcium carbonate 600 mg-vitamin 1 tab PO BID 05/20/21 09/09/22 03/07/22 History D3 5 mcg (200 unit) tablet cholecalciferol (vitamin D3) 125 125 mcg PO DAILY 05/20/21 09/09/22 03/07/22 History mcg (5,000 unit) tablet (Vitamin D3) omega-3s 350 ah-uuq-bwd-other 1 cap PO BID 05/20/21 09/09/22 09/09/22 History [id number] oil 600 mg capsule (Fish Oil) ferrous gluconate 324 mg (37.5 mg 324 mg PO QAM 08/24/21 09/09/22 09/09/22 History iron) tablet metoprolol succinate 25 mg 25 mg PO BID #180 tabs 01/18/22 09/09/22 09/09/22 Rx tablet,extended release 24 hr citalopram 10 mg tablet 10 mg PO QAM 06/13/22 09/09/22 09/09/22 History ascorbic acid (vitamin C) 500 mg 500 mg PO BID 09/09/22 09/09/22 09/09/22 History tablet (Vitamin C) furosemide 20 mg tablet 20 mg PO BID edema 09/09/22 09/09/22 Unknown History lisinopril 5 mg tablet 5 mg PO QAM 09/09/22 09/09/22 09/09/22 History potassium gluconate 595 mg (99 mg) 595 mg PO QAM 09/09/22 09/09/22 09/09/22 History tablet warfarin 5 mg tablet 5 mg PO BEDTIME 09/09/22 09/09/22 09/08/22 History zinc acetate 50 mg (zinc) capsule 50 mg PO DAILY 09/09/22 09/09/22 Unknown History Allergies Allergy/AdvReac Type Severity Reaction Status Date / Time amlodipine Allergy swelling Verified 09/09/22 13:21 penicillamine Allergy ALGY-Rash Verified 07/19/22 13:15 Penicillins Allergy Unknown Verified 09/09/22 13:02 Sulfa (Sulfonamide Allergy ALGY-Rash Verified 09/09/22 13:02 Antibiotics) Current Medications Generic Name Dose Route Start Last Admin Trade Name Freq PRN Reason Stop Dose Admin Ascorbic Acid 500 mg 09/09/22 18:00 09/09/22 17:23 Ascorbic Acid 500 Mg Tablet PO 500 mg BID JLUIS Administration Citalopram Hydrobromide 10 mg 09/10/22 06:00 09/10/22 05:18 Citalopram 20 Mg Tablet PO 10 mg QAM JLUIS Administration Ferrous Gluconate 324 mg 09/10/22 06:00 09/10/22 05:17 Ferrous Gluconate 324 Mg Tablet PO 324 mg QAM JLUIS Administration Hydromorphone HCl 1 mg 09/09/22 16:12 09/10/22 05:32 Hydromorphone 1 Mg/Ml Inj 1 Ml IVP 1 mg Q4H PRN Administration PAIN Levothyroxine Sodium 50 mcg 09/09/22 22:00 09/09/22 21:14 Levothyroxine 50 Mcg Tablet PO 50 mcg DAILY@22 JLUIS Administration Lisinopril 5 mg 09/10/22 06:00 09/10/22 05:17 Lisinopril 5 Mg Tablet PO 5 mg QAM JLUIS Administration Metoprolol Succinate 25 mg 09/09/22 18:00 09/09/22 17:23 Metoprolol Succinate Er (24 Hr) 25 Mg Tablet PO 25 mg BID JLUIS Administration Non-Formulary Medication 1 tab 09/09/22 18:00 09/09/22 16:50 Calcium Carbonate-Vitamin D3 PO Not Given BID JLUIS Non-Formulary Medication 595 mg 09/10/22 06:00 09/10/22 05:17 Potassium Gluconate PO Not Given QAM JLUIS Trazodone HCl 50 mg 09/09/22 21:00 09/09/22 21:14 Trazodone 50 Mg Tablet PO 50 mg BEDTIME JLUIS Administration PFSH Anesthesia Medical History Atherosclerotic heart disease Benign essential HTN Closed fracture of right wrist Fall Hypertension Hypothyroidism Ingrown toenail of left foot Insomnia Onychomycosis of toenail Thyroid disease Surgical History H/O section History of hip surgery History of surgery on wrist Hx of inguinal hernia repair Family History Grandfather Cancer Mother Hypertension Denies family history of Diabetes CAD (coronary artery disease) Clotting disorder Dementia Hyperlipidemia Psychiatric illness Chronic kidney disease (CKD) Suicide Anesthesia complication Bleeding disorder Family history of premature coronary artery disease Lung disease Stroke Social History Smoking and tobacco status: never smoked Alcohol intake: never Data Anesthesia : 09/10/22 04:43 09/10/22 04:43 Short CBC 09/09/22 09/10/22 Range/Units 14:05 04:43 WBC 8.8 9.7 (4.0-10.0) 10^3/uL Hgb 12.1 10.7 L (11.5-15.3) g/dL Hct 37.4 33.4 L (37.0-47.0) % MCV 93.5 96.5 (81-99) fl Plt Count 233 235 (130-400) 10^3/cmm Neut % (Auto) 78.6 71.7 % Neut # (Auto) 6.94 6.92 (1.8-7.7) 10^3/uL BMP 09/09/22 09/10/22 14:05 04:43 Sodium 137 139 Potassium 4.3 4.7 Chloride 100 101 Carbon Dioxide 29 29 BUN 15 20 Creatinine 0.9 1.3 H Glucose 127 H 134 H Calcium 9.9 9.2 Cardiac Enzymes 09/09/22 09/09/22 09/09/22 Range/Units 14:05 14:05 15:50 Troponin T Baseline 16 H (0-10) ng/L Troponin T 120 Minute 16.15 H (0-10) ng/L Delta Troponin T 0.15 (0-10) ABS# Troponin T Hi Sens 6Hr (0-10) ng/L Troponin T Hi Sens 6Hr Delta (0-12) ng/L NT-Pro-B Natriuret Pep 897 H (0-450) pg/mL 09/09/22 Range/Units 19:55 Troponin T Baseline (0-10) ng/L Troponin T 120 Minute (0-10) ng/L Delta Troponin T (0-10) ABS# Troponin T Hi Sens 6Hr 17.10 H (0-10) ng/L Troponin T Hi Sens 6Hr Delta 1.10 (0-12) ng/L NT-Pro-B Natriuret Pep (0-450) pg/mL Liver Function 09/09/22 Range/Units 14:05 Total Bilirubin 0.3 (0.15-1.2) mg/dL AST 17 (0-32) U/L ALT 13 (0-33) U/L Alkaline Phosphatase 44 (35-105) U/L Albumin 3.8 (3.5-5.2) g/dL Urine 09/09/22 Range/Units 17:30 Urine Color Yellow (Yellow) Urine Appearance Hazy A (CLEAR) Urine pH 8 H (5-7) Ur Specific [place] 1.020 (1.005-1.030) Urine Protein Neg (Negative) Urine Glucose (UA) Norm (Normal) Urine Ketones Negative (Negative) Urine Nitrate Negative (Negative) Urine Bilirubin Neg (Negative) Ur Leukocyte Esterase Negative (Negative) Coags 09/09/22 09/10/22 14:05 07:24 PT 23.40 H 22.20 H INR 2.04 H 1.91 H APTT 28.0 Cardiac Studies: Echocardiogram Ultrasound 04/04/21 Holter Monitor 11/16/21
--- NOTE | 2022-09-10 07:48 | P.PN_ITS ---
Subjective Subjective: Patient seen and examined this morning. Patient complaining pain to the right femur. She has been n.p.o. since midnight daughter at bedside. Plan to proceed with surgical intervention today. They are agreeable to proceed with surgery no further questions at this time. Vitals/I&O/Wt Last Vital Signs Temp 98.7 F 09/10/22 07:35 Pulse 64 09/10/22 07:35 Resp 16 09/10/22 07:35 BP 96/51 09/10/22 07:35 Pulse Ox 95 09/10/22 07:35 O2 Del Method 09/10/22 07:35 O2 Flow Rate 2 09/10/22 04:00 09/09/22 09/10/22 09/10/22 22:59 06:59 14:59 Intake Total 200 / 200 Output Total 300 / 300 Balance 200 / 200 -300 / -100 Weight last 48 hrs Weight 118 lb Physical Exam Narrative: Deformity to right femur. Tenderness to palpation. Patient can wiggle toes plantarflex and dorsiflex ankle. Distal pulses palpable. Urinary Catheter Management: Britt: Cath Placed During This Visit: yes Reason for Continuing Indwelling Catheter: Required Immobilization for Trauma or Surgery or Anesthesia Urinary Catheter Date of Insertion: 09/09/22 Data : 09/10/22 04:43 09/10/22 04:43 A&P Assessment and plan (1) Closed subtrochanteric fracture: Plan N.p.o. since midnight INR labs this morning down to 1.9. At this point time she is down trended to a safe level I feel of operating. We will make sure we have some blood on hand if needed and/or fresh frozen plasma. Spoke with hospitalist and patient's optimized for surgical intervention from their perspective Nonweightbearing right lower extremity Plan for or today for right subtrochanteric femur fracture open reduction internal fixation with long cephalomedullary nail. Attestations Medical Necessity Statement*: Patient sustained a right subtrochanteric femur fracture requiring hospitalization and surgical intervention. Coding Level of Care Code Acute Compressed Gases Tester for Ravi Osuna Diagnoses Closed subtrochanteric fracture S72.23XA Time Spent (min) 20
--- NOTE | 2022-09-10 07:55 | W.PM.OPSUD ---
Surgery/Procedure H&P Update DATE OF PROCEDURE: September 10, 2022 DATE H&P PERFORMED: 09/09/22 CHANGES TO PREVIOUS DOCUMENTATION: None PREOP DIAGNOSIS: Right subtrochanteric femur fracture PRIMARY INDICATION FOR PROCEDURE: Right subtrochanteric femur fracture displaced PLANNED PROCEDURE: Operation Date: 09/10/22 08:40 Proposed Procedures p Trochanteric Femoral Nail(Right) - Pasha Bradshaw DO
[2022-09-10] MEDS: clindamycin 600 MG/50 ML PREMIX 100 MG IV (08:21)
[2022-09-10] MEDS: tranexamic acid 1,000 mg/10mL SDV 1000 MG IV (08:47)
--- NOTE | 2022-09-10 10:09 | XRR_ITS ---
PROCEDURE INFORMATION: Exam: XR Right Femur Exam date and time: 09/10/2022 10:18 AM Age: 82 years old Clinical indication: Device placement; Joint fixation hardware; Prior surgery; Surgery date: Post-operative (0-2 days); Additional info: S/P orif subtroch right TECHNIQUE: Imaging protocol: Radiologic exam of the Right femur. Views: 2 views. COMPARISON: CR XR femur RT min 2V* [id number] 09/09/2022 4:50 PM FINDINGS: Bones/joints: Status post intramedullary michael nail nail and screw fixation of a right subtrochanteric femur fracture with resulting improved alignment. No immediate hardware complication. Osteopenia. Soft tissues: Within normal limits. XR/XR femur RT min 2V* [id number] IMPRESSION: Status post intramedullary michael nail nail and screw fixation of a right subtrochanteric femur fracture with resulting improved alignment. No immediate hardware complication.
--- NOTE | 2022-09-10 10:24 | P.OP_ITS ---
Brief Operative Note Date of procedure: 09/10/22 Pre-op diagnosis: Displaced right subtrochanteric femur fracture Post-op diagnosis: same Procedure Done: Open reduction internal fixation right subtrochanteric femur fracture with cephalomedullary nail Surgeon: Pasha Bradshaw Estimated blood loss (mL): 100 Complications: None Post-op Plan: Patient recovering well in PACU. Will return to the floor. Coordinated with hospitalist and they will manage patient returning on to Coumadin for DVT prophylaxis. Patient to follow-up with me in office in 2 weeks. Weightbearing as tolerated to the right lower extremity. Keep dressings on in place may change if saturated. We will work with PT/OT. Postoperative antibiotics. Condition: stable Disposition: floor Coding Level of Care Code Acute Internet Project Manager for Ravi Osuna
--- NOTE | 2022-09-10 10:30 | PM.PACU ---
PACU note Narrative: Patient seen and evaluated in PACU. Patient recovering well. Patient is able to wiggle toes plantarflex dorsiflex ankle distal pulses palpable. Sensation tact light touch distally. Her dressings are on in place and clean dry and intact. Patient to get postoperative x-rays. No other issues at this time will return to the floor. Exam: awake Disposition: back to floor
--- NOTE | 2022-09-10 10:31 | P.OP_ITS ---
Operative Report Date of procedure: September 10, 2022 Pre-op diagnosis: Preop Diagnosis Right subtrochanteric femur fracture Post-op diagnosis: Same Procedure done: Open reduction internal fixation right subtrochanteric femur fracture with cephalomedullary nail Implants: Moreno right long gamma nail 11 mm x 380 mm 125 degree Lag screw 10.5 mm x 100 mm Distal interlocking screws 40 mm, 42.5 mm (1 in static and 1 dynamic) Surgeon: Pasha Bradshaw DO Estimated blood loss: 100 cc IV fluids: See anesthesia record Urine output: See anesthesia record Complications: None Condition: stable Disposition: floor Brief History: File is a pleasant 82-year-old female sustained a ground-level fall injuring her right femur. She is brought to the x-rays and found to have a right subtrochanteric femur fracture. She was admitted by the hospitalist team and she was medically optimized for surgical intervention. Orthopedic surgery team was consulted. Patient was then seen and evaluated by myself and showed her findings consistent with her preoperative diagnosis. History does reveal she has a left intertrochanteric femur fracture that subsequently healed with cephalomedullary short nail. Patient is on Coumadin at home and her INR was subsequently optimized for surgical intervention. Per patient's family she does take injections of Prolia throughout the year for her osteoporosis. Patient was subsequently medically optimized by the hospitalist team and cleared for surgical intervention. I detailed discussion with patient about her treatment options as far as nonoperative and operative intervention. She understands the risk benefits complications alternatives to surgical and nonsurgical treatment options. Ultimately recommended surgical intervention for pain control as well as early mobilization. Patient understands and agrees with current plan. All questions answered at this time. Consent was obtained. Procedure: Patient was seen evaluated in the preoperative holding area. Consent was reviewed with patient. Correct extremity was then marked. Patient was then seen evaluated by anesthesia once cleared for surgery was taken back to the operative suite. She underwent anesthesia per the anesthesia department on the hospital bed and then once appropriately anesthetized and then transported onto the [place] table. Once on the [place] table she was appropriately secured and all bony prominences were well-padded. This point time patient received appropriate preoperative antibiotics. Final timeout performed. Large fluoroscopic C arm was then brought into the operative suite and visualized fracture. Attempts were made to gross traction and manual reduction utilizing the [place] bed however these were unsuccessful for anatomic reduction with plan for requiring open reduction and internal fixation. This point time the right lower extremity was then prepped and draped in standard orthopedic fashion. X-ray was then brought in marker was made to kim out the site of the fracture. I then placed a longitudinal incision over the fracture site sharp scalpel incision through skin and subcutaneous tissue. I utilized a Gallo elevator to mobilize over the IT band. This was split longitudinally. I utilized electroc autery to maintain exact hemostasis. Next I encountered the vastus lateralis. This was just split longitudinally with its fibers utilizing a blunt Gallo elevator. I next encountered fracture hematoma this was completely evacuated and identified at the fracture fragments. I then utilized a Appling clamp. Under direct visualization of the fracture site I then placed my Sonny clamp care to stay directly onto bone I had my assistant commissioner in the OR manipulate the [place] bed alternating traction as well as rotation to obtain an anatomic reduction. I then used my Appling clamp to clamp and hold my reduction for my nail fixation. I was satisfied with my reduction on multiple orthogonal images and then proceeded with my cephalomedullary nail. I made a standard 3 cm incision proximal to the greater trochanter. I then made incision through skin and subcutaneous tissue bluntly split the fascia directly down to the greater trochanter. I inserted my guidepin and made sure I was in center center pos ition of the greater trochanter right at the tip of the greater trochanter. This is impacted into place confirmed on lateral images to be in appropriate position and then advanced to the level of the lesser trochanter. I then inserted my opening reamer. And then passed my ball-tipped guidewire distally to appropriate depth. This was confirmed to be intramedullary and I maintain my reduction throughout the case. Ball tip was set right at the appropriate level at the level of the superior pole of the patella. This was confirmed to be in center of the canal on the lateral film as well. This was then subsequently measured unfortunately this was between sizes and ultimately 400 would be too long as result selected a 380 mm. Patient had a significantly oversized canal due to her osteoporosis and ultimately would not be able to achieve this most fit as this point time elected to place an 11 mm x 380 mm 125 degree long right gamma nail. All this was opened I sequentially reamed the canal up to a size 13 which had minimal chatter. At this point time I then loaded my nail on the targeter and this was gently impacted into place appropriate depth. This point time I looked distally at the tip of the nail in both AP and lateral confirming center center position and no anterior cortex perforation. At this point time I then utilized bilateral previously made incision for my lag screw. My lag screw guide sleeve was then inserted directly onto bone I then advanced my guidewire to a center center position into the femoral head with an excellent tip to apex distance this was measured to be 100 mm. I then reamed opened in place 10.5 mm x 100 mm lag screw by hand to appropriate tip to apex distance which had excellent fixation. At this point time the setscrew was then subsequently placed and locked in the device was then compressed appropriately as there was a small fracture line that appeared to cross the intertrochanteric line. Once this was then completed we then proceeded with placement of our distal interlocking screws. We utilized freehand perfect washoe technique. We then subsequently made small incisions blunt dissection directly onto bone inserted the drill bit utilizing perfect washoe technique drilled subsequently measured and placed 2 distal interlocking screws to appropriate depth and had excellent fixation. This completed her construct. The outer jig was subsequently removed. Appling clamp was removed and final x-rays were taken which showed stable reduction of subtrochanteric femur fracture and stable fixation. Wounds were then thoroughly irrigated with normal saline. Incisions were then closed in layered fashion of deep 0 Vicryl suture for fascia deep oh for subcutaneous tissue 2-0 Vicryl suture and [place]. Silverlon dressings were then applied to the incision. Patient was then awakened from anesthesia she was then transported from the [place] bed onto the hospital bed in stable condition taken to PACU in stable condition. Disposition: Patient tolerated procedure without complications. She is taken back in stable condition. She will return to the floor. She received appropriate discharge instruction as well as pain medication and DVT prophylaxis. We will resume her home Coumadin which will be managed by her primary care physician. We will have hospitalist managing her DVT prophylaxis postoperatively while in the hospital. She will be given appropriate instructions as far as her weightbearing status and to be weightbearing as tolerated to the right lower extremity. We will see her back in 2 weeks for repeat evaluation and x-rays and plan for staple removal. She will receive appropriate PT/OT as well as perioperative antibiotics. Patient understands agrees with current plan. All questions answered. We will see her in the office in 2 weeks.
--- NOTE | 2022-09-10 10:32 | PC.NURSE ---
X Rays completed. Ice to right hip
--- NOTE | 2022-09-10 10:38 | ANE.PACU2 ---
Inpatient post-anesthesia follow up: Airway intact: Yes Vital signs: Temperature 97 F Pulse Rate 71 Respiratory Rate 13 Blood Pressure 110/51 Pulse Oximetry 97 Oxygen Delivery Me thod Nasal Cannula Oxygen Flow Rate 2 Fraction of Inspir ed Oxygen Hydration adequate: Yes Nausea and vomiting: No Pain level: 1 Mental status: Baseline
[2022-09-10] MEDS: morphine 4 mg/mL SDV 1 mL IVP ×2 (11:28→21:08)
[2022-09-10] MEDS: sodium chloride 0.9% 500 ML IV ×2 (13:43→17:10)
[2022-09-10] MEDS: chlorhexidine gluconate 0.12% Btl 473 mL 30 ML MUCOUS MEM ×3 (13:44→21:06)
[2022-09-10] MEDS: warfarin 5 mg Tablet PO (13:44)
--- NOTE | 2022-09-10 14:26 | PM.PN ---
Subjective Subjective: Patient was seen this morning, after her procedure, she complains of pain, no fevers overnight Vitals/I&O/Wt Last Vital Signs Temp 97.7 F 09/10/22 12:00 Pulse 100 09/10/22 14:00 Resp 15 09/10/22 12:00 BP 90/46 09/10/22 12:00 Pulse Ox 100 09/10/22 12:00 O2 Del Method 09/10/22 12:00 O2 Flow Rate 3 09/10/22 12:00 09/09/22 09/10/22 09/10/22 22:59 06:59 14:59 Intake Total 200 / 200 1050 / 1050 Output Total 300 / 300 350 / 350 Balance 200 / 200 -300 / -100 700 / 700 Weight last 48 hrs Weight 53.524 kg Physical Exam Const: COMMON NORMALS: no acute distress and patient oriented x3 Resp: COMMON NORMALS: normal respiratory effort, No retractions, No use of accessory muscles and clear to auscultation bilaterally AUSCULTATION: clear to auscultation bilaterally Cardio: COMMON NORMALS: regular rate, regular rhythm, S1 normal heart sound present and S2 normal heart sound present RATE: regular rate RHYTHM: regular rhythm HEART SOUNDS: S1 normal heart sound present and S2 normal heart sound present GI: COMMON NORMALS: Normal to inspection, nondistended, normoactive bowel sounds present, non-tender and no masses Extremity: COMMON NORMALS: no pedal edema Neuro: COMMON NORMALS: patient oriented x3 Psych: COMMON NORMALS: mental status grossly normal Urinary Catheter Management: Britt: Cath Placed During This Visit: yes Reason for Continuing Indwelling Catheter: Required Immobilization for Trauma or Surgery or Anesthesia Urinary Catheter Date of Insertion: 09/09/22 Data : 09/10/22 04:43 09/10/22 04:43 A&P Assessment and plan (1) Benign essential HTN: (2) Hypertension: (3) Closed right hip fracture: (4) Anemia: Qualifiers: Anemia type: iron deficiency Iron deficiency anemia type: other iron deficiency Qualified Code(s): D50.8 - Other iron deficiency anemias Plan Right hip fracture -Status post surgical intervention -Pain control, morphine minimally helped, switch to Dilaudid 1 mg every 4 hours -Zofran for nausea -SCDs and Coumadin for DVT prophylaxis -INR 1.9, spoke to pharmacy resume 5 mg once daily, recheck INR tomorrow History of atrial fibrillation, continue metoprolol, Coumadin History of CAD, no chest pain complaints, as above Hypothyroidism, check TSH within normal limits Full code Attestations Medical Necessity Statement*: Patient requires hospitalization for hip fracture Coding Level of Care Code 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
[2022-09-10] MEDS: clindamycin 900 MG/50 ML PREMIX 100 MG IV ×2 (16:50→23:45)
[2022-09-10] MEDS: mupirocin oint 22 gm 1 APPLIC NASAL (17:14)
[2022-09-10] MEDS: sennosides-docusate Tablet 2 TAB PO (17:15)
[2022-09-10] MEDS: iron polysaccharide complex 150 mg Capsule PO (17:15)
[2022-09-10] MEDS: ascorbic acid 500 mg Tablet PO (17:15)
--- NOTE | 2022-09-10 18:14 | ECG_ITS ---
[facility] Test Date: 2022-09-10 Pat Name: Deedee Mcneill Department: Room: 272 Gender: Female Vice President For Instruction: : 1940 Requested By: Arnoldo Lopez Order Number: [id number] Jeff MD: Brenda Murillo M.D. Measurements Intervals [place] Rate: 67 P: 83 [place]: 170 QRS: 74 QRSD: 82 T: 38 QT: 389 QTc: 413 Interpretive Statements SINUS RHYTHM LOW QRS VOLTAGE IN PRECORDIAL LEADS [QRS DEFLECTION < 1.0 mV IN CHEST LEADS] POSSIBLE RIGHT VENTRICULAR CONDUCTION DELAY [RSR (QR) IN V1/V2] SEPTAL MYOCARDIAL INFARCTION , OF INDETERMINATE AGE [40+ ms Q WAVE IN V1/V2] Compared to ECG 09/09/2022 18:21:49 Low QRS voltage now present Myocardial infarct finding now present Electronically Signed On 09-11-2022 9:45:28 C++ PROFESSOR by Brenda Murillo M.D. [id number]
[2022-09-10] MEDS: oxyCODONE 5 mg IR Tab/Cap PO (18:36)
[2022-09-10] MEDS: midodrine 5 mg TABLET 10 MG PO (18:37)
[2022-09-10 18:48] LABS: Basophils % 0.2 %; Hemoglobin 8.6 g/dL (11.5-15.3); Lymphocytes # 0.9 10^3/uL (0.8-4.8); Lymphocytes % 9.9 %; Mean Corpuscular HGB Conc 30.7 g/dL (30.0-36.0); Mean Corpuscular Hemoglobin 30.4 pg (28.0-34.0); Mean Corpuscular Volume 98.9 fl (81-99); Mean Platelet Volume 10.4 fL (7.4-10.4); Monocytes # 1.5 10^3/uL (0.2-0.9); Monocytes % 15.7 %; Neutrophils # 7.02 10^3/uL (1.8-7.7); Neutrophils % 73.7 %; Nucleated Red Blood Cells % 0 %; Platelet Count 173 10^3/cmm (130-400); Red Blood Count 2.83 10^6/uL (4.1-5.3); Red Cell Distribution Width 12.8 % (12.1-15.1); White Blood Count 9.5 10^3/uL (4.0-10.0)
[2022-09-10 19:03] LABS: Partial Thromboplastin Time 30.3 SECONDS (23.9-36.7)
[2022-09-10 19:12] LABS: Alanine Aminotransferase 104 U/L (0-33); Albumin Level 3.2 g/dL (3.5-5.2); Alkaline Phosphatase 36 U/L (35-105); Anion Gap 13.5 (5-19); Aspartate Amino Transferase 120 U/L (0-32); Blood Urea Nitrogen 23 mg/dL (8-23); Calcium 8.2 mg/dL (8.5-10.5); Carbon Dioxide 25 mmol/L (22-29); Chloride 101 mmol/L (98-107); Globulin 1.9 g/dL (1.3-4.6); Glucose 126 mg/dL (65-115); Magnesium 1.7 mg/dL (1.7-2.3); Osmolality Calculated 285 mOsm/kg (285-295); Potassium 4.5 mmol/L (3.5-5.1); Sodium 135 mmol/L (136-145); Total Bilirubin 0.3 mg/dL (0.15-1.2); Total Protein 5.1 g/dL (6.6-8.7); Troponin(5th) Baseline 48 ng/L (0-10)
[2022-09-10 19:13] LABS: Lactate (Lactic Acid level) 2.9 mmol/L (0.5-2.2)
--- NOTE | 2022-09-10 20:24 | ECG_ITS ---
[facility] Test Date: 2022-09-10 Pat Name: Deedee Mcneill Department: Room: 272 Gender: Female Professor Of Environmental Engineering: : 1940 Requested By: Arnoldo Lopez Order Number: [id number] Jeff MD: Brenda Murillo M.D. Measurements Intervals [place] Rate: 75 P: 83 [place]: 162 QRS: 45 QRSD: 87 T: 42 QT: 385 QTc: 432 Interpretive Statements SINUS RHYTHM POSSIBLE RIGHT VENTRICULAR CONDUCTION DELAY [RSR (QR) IN V1/V2] Compared to ECG 09/10/2022 18:27:04 Myocardial infarct finding no longer present Electronically Signed On 09-11-2022 9:47:40 ASSIGNMENT CLERK by Brenda Murillo M.D. [id number]
[2022-09-10] MEDS: trazodone 50 mg Tablet PO (21:04)
[2022-09-10] MEDS: levothyroxine 50 mcg Tablet PO (21:04)
[2022-09-10 21:09] LABS: Troponin 5 2HR 44.63 ng/L (0-10)
[2022-09-10 21:11] LABS: Troponin 5 2HR Delta -3.37 ABS# (0-10)
[2022-09-11] VITALS (17 sets, daily range): BP systolic 94–127; BP diastolic 51–70; PULSE 66–120; RESP 16–18; TEMP -12.7–36.9; O2SAT 91–97
[2022-09-11 01:18] LABS: Basophils % 0.2 %; Hematocrit 27.1 % (37.0-47.0); Hemoglobin 8.4 g/dL (11.5-15.3); Lymphocytes % 11.3 %; Mean Corpuscular Hemoglobin 30.5 pg (28.0-34.0); Mean Corpuscular Volume 98.5 fl (81-99); Mean Platelet Volume 10.4 fL (7.4-10.4); Monocytes # 1.6 10^3/uL (0.2-0.9); Monocytes % 17.9 %; Neutrophils # 6.29 10^3/uL (1.8-7.7); Neutrophils % 69.9 %; Nucleated Red Blood Cells % 0 %; Platelet Count 175 10^3/cmm (130-400); Red Blood Count 2.75 10^6/uL (4.1-5.3); Red Cell Distribution Width 12.9 % (12.1-15.1)
--- NOTE | 2022-09-11 01:30 | ECG_ITS ---
[facility] Test Date: 2022-09-11 Pat Name: Deedee Mcneill Department: Room: 272 Gender: Female Algebra Teacher: : 1940 Requested By: Arnoldo Lopez Order Number: [id number] Jeff MD: Brenda Murillo M.D. Measurements Intervals [place] Rate: 72 P: 72 [place]: 148 QRS: 68 QRSD: 92 T: 39 QT: 389 QTc: 428 Interpretive Statements SINUS RHYTHM INCOMPLETE RIGHT BUNDLE BRANCH BLOCK Compared to ECG 09/10/2022 20:24:40 Incomplete right bundle-branch block now present Electronically Signed On 09-11-2022 9:47:26 PHARMACISTS by Brenda Murillo M.D. [id number]
[2022-09-11 01:36] LABS: Anion Gap 12.6 (5-19); Blood Urea Nitrogen 24 mg/dL (8-23); Calcium 8.2 mg/dL (8.5-10.5); Carbon Dioxide 26 mmol/L (22-29); Chloride 101 mmol/L (98-107); Glucose 143 mg/dL (65-115); Osmolality Calculated 287 mOsm/kg (285-295); Potassium 4.6 mmol/L (3.5-5.1); Sodium 135 mmol/L (136-145)
[2022-09-11 01:41] LABS: Troponin 5 6HR 47.55 ng/L (0-10)
[2022-09-11 01:44] LABS: Troponin 5 6HR Delta -0.45 ng/L (0-12)
[2022-09-11] MEDS: phenol oral Spray 177 mL 3 SPRAY MUCOUS MEM (04:22)
[2022-09-11] MEDS: citalopram 20 mg Tablet 10 MG PO (05:27)
[2022-09-11] MEDS: ferrous gluconate 324 mg Tablet PO (05:27)
[2022-09-11] MEDS: oxyCODONE 5 mg IR Tab/Cap PO ×3 (05:27→21:11)
[2022-09-11 08:30] LABS: Ferritin 552 ng/mL (15-150); Iron 17 ug/dL (37-145); Percent Saturation 10.8 % (20-50); Total Iron Binding Capacity 156 mcg/dl; Unsaturated Iron Binding 139 ug/dL (112-347)
[2022-09-11] MEDS: iron polysaccharide complex 150 mg Capsule PO ×2 (08:38→17:39)
[2022-09-11] MEDS: ascorbic acid 500 mg Tablet PO ×2 (08:38→17:38)
[2022-09-11] MEDS: multivitamin therapeutic Tablet 1 TAB PO (08:38)
[2022-09-11] MEDS: cholecalciferol (vitamin D3) 5,000 unit Tablet 5000 UNIT PO (08:38)
[2022-09-11] MEDS: sennosides-docusate Tablet 2 TAB PO ×2 (08:38→17:39)
[2022-09-11] MEDS: mupirocin oint 22 gm 1 APPLIC NASAL ×2 (08:39→17:40)
[2022-09-11] MEDS: morphine 4 mg/mL SDV 1 mL IVP (08:40)
--- NOTE | 2022-09-11 08:46 | PM.PN ---
Subjective Subjective: Patient recovering well. She had some soft pressures postoperatively she has responded to fluid boluses. Hemoglobin down to 8.4 today. Continue to trend. We will get patient up with therapy today. Continue with pain control. Patient resuming Coumadin for DVT prophylaxis per internal medicine. Internal medicine continuing medical management as primary. Vitals/I&O/Wt Last Vital Signs Temp 98.2 F 09/11/22 07:27 Pulse 88 09/11/22 07:45 Resp 16 09/11/22 07:45 BP 127/62 09/11/22 08:31 Pulse Ox 97 09/11/22 07:45 O2 Del Method 09/11/22 07:45 O2 Flow Rate 2 09/10/22 20:59 09/10/22 09/11/22 09/11/22 23:59 06:59 14:59 Intake Total Output Total Balance Weight last 48 hrs Weight 118 lb Physical Exam Narrative: Examination right lower extremity demonstrates dressings are on in place and are clean dry and intact. Normal postoperative swelling to the right femur. She has some tenderness distally at the incisions of the knee as well as the incisions laterally at the hip. Compartments are soft and compressible. Sensations intact light touch distally. Distal pulses palpable. Urinary Catheter Management: Britt: Cath Placed During This Visit: yes, but has since been removed by the nurse Reason for Continuing Indwelling Catheter: Decision to DC Catheter Urinary Catheter Date of Insertion: 09/09/22 Date Urinary Catheter Removed: 09/11/22 Time Urinary Catheter Discontinued: 06:13 Data : 09/11/22 01:10 DIRECTOR OF REVENUE 09/11/22 01:10 DIRECTOR OF REVENUE Xray Ortho: My impression: X-rays postop right femur demonstrate stable reduction and fixation with cephalomedullary long nail for right subtrochanteric femur fracture. A&P Assessment and plan (1) Closed subtrochanteric fracture: Plan Weightbearing as tolerated to the right lower extremity PT/OT Resume Coumadin for DVT prophylaxis per primary A.m. labs reviewed Complete postoperative antibiotics Pain control Resume diet Change dressings as needed if they become saturated Internal medicine is primary and appreciate their medical management Attestations Medical Necessity Statement*: Patient sustained right subtrochanteric femur fracture requiring hospitalization and surgical intervention. Coding Level of Care Code Acute Field Crew Chief for Ravi Osuna Diagnoses Closed subtrochanteric fracture S72.23XA Time Spent (min) 25
[2022-09-11] MEDS: clindamycin 900 MG/50 ML PREMIX 100 MG IV (08:47)
[2022-09-11] MEDS: chlorhexidine gluconate 0.12% Btl 473 mL 30 ML MUCOUS MEM ×4 (08:47→21:13)
[2022-09-11 10:04] LABS: Vitamin B12 > 2000 pg/mL (232-1245)
[2022-09-11] MEDS: acetaminophen 325 mg Tablet 650 MG PO (12:44)
[2022-09-11 13:30] LABS: Basophils % 0.3 %; Eosinophils % 0.1 %; Hematocrit 29.9 % (37.0-47.0); Hemoglobin 9.3 g/dL (11.5-15.3); Lymphocytes # 0.6 10^3/uL (0.8-4.8); Lymphocytes % 5.3 %; Mean Corpuscular HGB Conc 31.1 g/dL (30.0-36.0); Mean Corpuscular Hemoglobin 30.5 pg (28.0-34.0); Mean Platelet Volume 10.6 fL (7.4-10.4); Monocytes % 16.6 %; Neutrophils # 9.15 10^3/uL (1.8-7.7); Neutrophils % 77.2 %; Nucleated Red Blood Cells % 0 %; Platelet Count 198 10^3/cmm (130-400); Red Blood Count 3.05 10^6/uL (4.1-5.3); Red Cell Distribution Width 12.9 % (12.1-15.1); White Blood Count 11.9 10^3/uL (4.0-10.0)
[2022-09-11] MEDS: warfarin 5 mg Tablet PO (14:25)
[2022-09-11] MEDS: warfarin 2.5 mg Tablet PO (14:56)
--- NOTE | 2022-09-11 15:22 | PC.NURSE ---
bladder scan Pt hasnt urinated since santizo removed this morning around 6am per Radha. Scanned bladder and showed 105. Will notify Dr. Lopez.
--- NOTE | 2022-09-11 15:39 | PM.PN ---
Subjective Subjective: Patient was seen this morning, she tells me that yesterday was a bit of a haze, she does not really remember me, but does remember my name, she did have hypotensive episodes yesterday after her surgery, likely of the effect of anesthetic, currently blood pressures are well controlled, no lightheadedness, dizziness, no bloody or black stools reported she does report to me that her is currently admitted at [facility] for his Lewy body dementia, she is agreeable to go to the long-term hopefully [place] if needed, but she is a bit adamant about going home Vitals/I&O/Wt Last Vital Signs Temp 98.1 F 09/11/22 11:20 Pulse 85 09/11/22 11:20 Resp 16 09/11/22 12:45 BP 120/70 09/11/22 12:43 Pulse Ox 97 09/11/22 07:45 O2 Del Method 09/11/22 07:45 O2 Flow Rate 2 09/10/22 20:59 09/11/22 09/11/22 09/11/22 06:59 14:59 22:59 Intake Total 410 / 410 Output Total Balance 410 / 410 Physical Exam Const: COMMON NORMALS: no acute distress and patient oriented x3 Resp: COMMON NORMALS: normal respiratory effort, No retractions, No use of accessory muscles and clear to auscultation bilaterally AUSCULTATION: clear to auscultation bilaterally Cardio: COMMON NORMALS: regular rate, regular rhythm, S1 normal heart sound present and S2 normal heart sound present RATE: regular rate RHYTHM: regular rhythm HEART SOUNDS: S1 normal heart sound present and S2 normal heart sound present GI: COMMON NORMALS: Normal to inspection, nondistended, normoactive bowel sounds present and non-tender Extremity: COMMON NORMALS: no pedal edema Neuro: COMMON NORMALS: patient oriented x3 Psych: COMMON NORMALS: mental status grossly normal Urinary Catheter Management: Britt: Cath Placed During This Visit: yes, but has since been removed by the nurse Reason for Continuing Indwelling Catheter: Decision to DC Catheter Urinary Catheter Date of Insertion: 09/09/22 Date Urinary Catheter Removed: 09/11/22 Time Urinary Catheter Discontinued: 06:13 Data : 09/11/22 13:15 09/11/22 01:10 TABLE TOP TILE SETTER A&P Assessment and plan (1) Benign essential HTN: (2) Hypertension: (3) Closed right hip fracture: (4) Anemia: Qualifiers: Anemia type: iron deficiency Iron deficiency anemia type: other iron deficiency Qualified Code(s): D50.8 - Other iron deficiency anemias Plan Right hip fracture -Status post surgical intervention -Pain control, morphine minimally helped, continue oxycodone -Zofran for nausea -SCDs and Coumadin for DVT prophylaxis -INR 1.5 spoke to pharmacy resume 5 mg once daily, will give her an extra 2.5 mg today, with recheck INR tomorrow, no need to bridge for now, will recheck INR tomorrow, also hesitant about bridging given her anemia -History of iron deficiency anemia, hemoglobin 8.3, some component dilutional, but her studies do show iron deficiency anemia with iron level of 17, and her ferritin is 552, but likely post operative. Hemoccult stool pending, hemodynamics have been stable, no bloody or black stools reported continue p.o. iron, start Carafate, Protonix, likely she will require an EGD at some point as outpatient Low blood pressures, throughout the afternoon yesterday, likely anesthetic effect, has received fluids, received 1 dose of midodrine, overall improving continue to monitor History of atrial fibrillation, continue metoprolol, Coumadin History of CAD, no chest pain complaints, as above Hypothyroidism, check TSH within normal limits Continue PT OT, Likely will require fpc facility Full code Attestations Medical Necessity Statement*: Patient requires hospitalization for right hip fracture, now with iron deficiency anemia, low blood pressures Coding Level of Care Code Acute Options Advisor for [facility] Fwd Diagnoses Benign essential HTN I10 Hypertension I10 Closed right hip fracture S72.001A Anemia D50.8 Anemia type: iron deficiency Iron deficiency anemia type: other iron deficiency
[2022-09-11] MEDS: pantoprazole DR 40 mg Tablet PO (17:38)
[2022-09-11] MEDS: [UNRECOGNIZED DRUG - OTHER] PO (17:39)
[2022-09-11] MEDS: sucralfate 1 gm Tablet PO ×2 (17:39→21:12)
[2022-09-11] MEDS: CALCIUM CARBONATE VITAMIN D3 PO (17:39)
[2022-09-11] MEDS: trazodone 50 mg Tablet PO (21:11)
[2022-09-11] MEDS: levothyroxine 50 mcg Tablet PO (21:12)
[2022-09-12] VITALS (8 sets, daily range): BP systolic 95–119; BP diastolic 53–65; PULSE 89–108; RESP 16–18; TEMP 36.4–37; O2SAT 92–97
[2022-09-12 02:36] LABS: Basophils % 0.4 %; Eosinophils % 0.1 %; Hematocrit 25.6 % (37.0-47.0); Lymphocytes # 0.9 10^3/uL (0.8-4.8); Lymphocytes % 9.1 %; Mean Corpuscular HGB Conc 31.3 g/dL (30.0-36.0); Mean Corpuscular Hemoglobin 30.3 pg (28.0-34.0); Mean Platelet Volume 11.2 fL (7.4-10.4); Monocytes # 1.5 10^3/uL (0.2-0.9); Monocytes % 15.3 %; Neutrophils # 7.29 10^3/uL (1.8-7.7); Neutrophils % 74.5 %; Nucleated Red Blood Cells % 0 %; Platelet Count 166 10^3/cmm (130-400); Red Blood Count 2.64 10^6/uL (4.1-5.3); Red Cell Distribution Width 12.6 % (12.1-15.1); White Blood Count 9.8 10^3/uL (4.0-10.0)
[2022-09-12 02:50] LABS: INR 1.31 (0.8-1.2)
[2022-09-12 02:56] LABS: Anion Gap 11.5 (5-19); Blood Urea Nitrogen 26 mg/dL (8-23); Calcium 8.8 mg/dL (8.5-10.5); Carbon Dioxide 26 mmol/L (22-29); Chloride 100 mmol/L (98-107); Glucose 136 mg/dL (65-115); Osmolality Calculated 283 mOsm/kg (285-295); Potassium 4.5 mmol/L (3.5-5.1); Sodium 133 mmol/L (136-145)
[2022-09-12] MEDS: oxyCODONE 5 mg IR Tab/Cap PO (03:59)
[2022-09-12] MEDS: ferrous gluconate 324 mg Tablet PO (06:08)
[2022-09-12] MEDS: sucralfate 1 gm Tablet PO ×4 (06:08→21:16)
[2022-09-12] MEDS: citalopram 20 mg Tablet 10 MG PO (06:08)
--- NOTE | 2022-09-12 06:53 | PM.PN ---
Subjective Subjective: Patient seen and examined this morning. Pain controlled. Still complains of soreness to the right femur. Dressings are clean dry and intact. She is gotten up and ambulated some. Vitals/I&O/Wt Last Vital Signs Temp 97.9 F 09/12/22 04:00 Pulse 93 09/12/22 05:00 Resp 16 09/12/22 04:00 BP 100/65 09/12/22 04:00 Pulse Ox 97 09/12/22 04:00 O2 Del Method 09/11/22 07:45 O2 Flow Rate 2 09/11/22 20:00 09/11/22 09/11/22 09/12/22 14:59 22:59 06:59 Intake Total 410 / 410 480 / 890 120 / 1010 Output Total 300 / 300 450 / 750 Balance 410 / 410 180 / 590 -330 / 260 Physical Exam Narrative: Examination right lower extremity distal pulses palpable patient is able to wiggle toes plantarflex dorsiflex ankle. Silverlon dressings are on in place that are clean dry and intact no evidence of saturation. Right thigh compartments are soft and compressible. Normal postoperative swelling and ecchymosis noted. Urinary Catheter Management: Britt: Cath Placed During This Visit: yes, but has since been removed by the nurse Reason for Continuing Indwelling Catheter: Decision to DC Catheter Urinary Catheter Date of Insertion: 09/09/22 Date Urinary Catheter Removed: 09/11/22 Time Urinary Catheter Discontinued: 06:13 Data : 09/12/22 01:29 09/12/22 01:29 A&P Assessment and plan (1) Closed subtrochanteric fracture: Plan Weightbearing as tolerated to the right lower extremity PT/OT Resume Coumadin for DVT prophylaxis per hospitalist A.m. labs reviewed Pain control Diet Change dressings as needed if they become saturated Internal medicine is primary and appreciate their medical management This point time no further orthopedic surgical intervention required at this time. Recommend patient continue with PT/OT. Orthopedic surgery team will sign off patient at this time and follow peripherally. Thank you for allowing me to partake in the care of this patient. We will have her follow-up with us in office in 2 weeks for repeat x-rays as well as staple removal. Patient will be given appropriate discharge instructions as well as continuing her home Coumadin for DVT prophylaxis. All questions been answered at this time. Patient understands and agrees with current plan. Attestations Medical Necessity Statement*: Patient sustained a right subtrochanteric femur fracture requiring surgical intervention and postoperative monitoring. Coding Level of Care Code Acute Analog Ic Design Architect for [employer] Fwd Diagnoses Closed subtrochanteric fracture S72.23XA Time Spent (min) 25
[2022-09-12 09:04] LABS: Hematocrit 27.7 % (37.0-47.0); Hemoglobin 8.9 g/dL (11.5-15.3)
[2022-09-12] MEDS: ascorbic acid 500 mg Tablet PO ×2 (09:35→17:30)
[2022-09-12] MEDS: sennosides-docusate Tablet 2 TAB PO ×2 (09:35→17:30)
[2022-09-12] MEDS: pantoprazole DR 40 mg Tablet PO ×2 (09:35→17:30)
[2022-09-12] MEDS: cholecalciferol (vitamin D3) 5,000 unit Tablet 5000 UNIT PO (09:36)
[2022-09-12] MEDS: iron polysaccharide complex 150 mg Capsule PO ×2 (09:37→17:30)
[2022-09-12] MEDS: multivitamin therapeutic Tablet 1 TAB PO (09:37)
--- NOTE | 2022-09-12 11:01 | PC.SOCIAL ---
IMM Update pg 2 of IMM updated and reviewed w/ patient. Copy provided and Copy dated, initialed and placed in chart.
[2022-09-12] MEDS: [UNRECOGNIZED DRUG - OTHER] PO ×2 (12:23→17:30)
[2022-09-12] MEDS: CALCIUM CARBONATE VITAMIN D3 PO ×2 (12:23→17:30)
--- NOTE | 2022-09-12 13:08 | P.PN_ITS ---
Subjective Subjective: Patient is stating that she is not happy about going to intermediate but at the same time she is admitting that she has no option she is concerned she would not get good care at a intermediate I have increased her opioid regimen to hydrocodone Vitals/I&O/Wt Last Vital Signs Temp 97.9 F 09/12/22 11:28 Pulse 89 09/12/22 11:28 Resp 18 09/12/22 11:28 BP 95/53 09/12/22 11:28 Pulse Ox 97 09/12/22 11:28 O2 Del Method 09/12/22 11:28 O2 Flow Rate 2 09/11/22 20:00 09/11/22 09/12/22 09/12/22 22:59 06:59 14:59 Intake Total 480 / 890 120 / 1010 240 / 240 Output Total 300 / 300 450 / 750 Balance 180 / 590 -330 / 260 240 / 240 Physical Exam Narrative: Patient is appearing anxious however no active complaints She is trying to avoid putting weight on her right leg Clinically does not look fluid overloaded She does have signs of dehydration, skin wrinkling noted Abdomen soft S1, S2 Nonfocal neuro exam Currently on room air Urinary Catheter Management: Britt: Cath Placed During This Visit: yes, but has since been removed by the nurse Reason for Continuing Indwelling Catheter: Decision to DC Catheter Urinary Catheter Date of Insertion: 09/09/22 Date Urinary Catheter Removed: 09/11/22 Time Urinary Catheter Discontinued: 06:13 Data : 09/12/22 08:49 09/12/22 01:29 A&P Assessment and plan (1) Closed right hip fracture: (2) Closed subtrochanteric fracture: (3) Atrial tachycardia: (4) Benign essential HTN: (5) Closed intertrochanteric fracture of left hip: Qualifiers: Encounter type: initial encounter Fracture alignment: displaced Qualified Code(s): S72.142A - Displaced intertrochanteric fracture of left femur, initial encounter for closed fracture (6) Peripheral arterial disease: Plan Awaiting intermediate placement for History of A. fib continue metoprolol Coumadin Continue PT/OT evaluation on daily basis Her opioid regimen has been increased to hydrocodone along bowel regimen Iron-deficiency anemia hemoglobin is stable FANI most likely related to dehydration continue IV fluids Attestations Medical Necessity Statement*: Awaiting placement Time Spent in Patient Care: 30 Coding Level of Care Code Acute Mechanical Service Representative for Chg Fwd Diagnoses Closed right hip fracture S72.001A Closed subtrochanteric fracture S72.23XA Atrial tachycardia I47.1 Benign essential HTN I10 Closed intertrochanteric fracture of left hip S72.142A Encounter type: initial encounter Fracture alignment: displaced Peripheral arterial disease I73.9
[2022-09-12] MEDS: HYDROcodone-acetaminophen 5-325 mg Tablet 1 TAB PO (13:27)
[2022-09-12] MEDS: chlorhexidine gluconate 0.12% Btl 473 mL 30 ML MUCOUS MEM ×2 (18:32→21:17)
[2022-09-12] MEDS: levothyroxine 50 mcg Tablet PO (21:16)
[2022-09-12] MEDS: acetaminophen 650 mg/20.3 mL UDC PO (21:16)
[2022-09-12] MEDS: trazodone 50 mg Tablet PO (21:16)
[2022-09-13] VITALS: BP 150/67; PULSE 78; RESP 17; TEMP 36.6; O2SAT 92
[2022-09-13] MEDS: HYDROcodone-acetaminophen 5-325 mg Tablet 1 TAB PO ×2 (00:38→07:44)
[2022-09-13 03:12] LABS: Basophils % 0.3 %; Eosinophils % 0.4 %; Hematocrit 24.4 % (37.0-47.0); Hemoglobin 7.6 g/dL (11.5-15.3); Lymphocytes # 0.8 10^3/uL (0.8-4.8); Mean Corpuscular HGB Conc 31.1 g/dL (30.0-36.0); Mean Corpuscular Hemoglobin 30.9 pg (28.0-34.0); Mean Corpuscular Volume 99.2 fl (81-99); Mean Platelet Volume 10.7 fL (7.4-10.4); Monocytes # 1.5 10^3/uL (0.2-0.9); Monocytes % 15.8 %; Neutrophils # 6.81 10^3/uL (1.8-7.7); Neutrophils % 73.8 %; Nucleated Red Blood Cells % 0 %; Platelet Count 175 10^3/cmm (130-400); Red Blood Count 2.46 10^6/uL (4.1-5.3); Red Cell Distribution Width 12.7 % (12.1-15.1); White Blood Count 9.2 10^3/uL (4.0-10.0)
[2022-09-13 03:29] LABS: INR 1.47 (0.8-1.2)
[2022-09-13 03:40] LABS: Anion Gap 12.6 (5-19); Blood Urea Nitrogen 30 mg/dL (8-23); Calcium 9.8 mg/dL (8.5-10.5); Carbon Dioxide 24 mmol/L (22-29); Chloride 98 mmol/L (98-107); Glucose 111 mg/dL (65-115); Osmolality Calculated 277 mOsm/kg (285-295); Potassium 4.6 mmol/L (3.5-5.1); Sodium 130 mmol/L (136-145)
[2022-09-13 04:00] VITALS: BP 113/62; PULSE 66; RESP 16; TEMP 36.8; O2SAT 94
[2022-09-13 05:10] VITALS: PULSE 85
[2022-09-13 06:00] LABS: SARS Covid-2 Antigen negative (Negative)
[2022-09-13] MEDS: ferrous gluconate 324 mg Tablet PO (06:00)
[2022-09-13] MEDS: citalopram 20 mg Tablet 10 MG PO (06:00)
[2022-09-13] MEDS: sucralfate 1 gm Tablet PO ×2 (06:00→07:43)
[2022-09-13] MEDS: sennosides-docusate Tablet 2 TAB PO (07:42)
[2022-09-13] MEDS: ascorbic acid 500 mg Tablet PO (07:42)
[2022-09-13] MEDS: pantoprazole DR 40 mg Tablet PO (07:42)
[2022-09-13] MEDS: multivitamin therapeutic Tablet 1 TAB PO (07:43)
[2022-09-13] MEDS: iron polysaccharide complex 150 mg Capsule PO (07:43)
[2022-09-13] MEDS: cholecalciferol (vitamin D3) 5,000 unit Tablet 5000 UNIT PO (07:44)
[2022-09-13] MEDS: chlorhexidine gluconate 0.12% Btl 473 mL 30 ML MUCOUS MEM (07:44)
[2022-09-13 07:45] VITALS: BP 136/62; PULSE 74; RESP 15; TEMP 36.3; O2SAT 92
[2022-09-13 08:54] LABS: Hemoglobin 8.7 g/dL (11.5-15.3)
--- NOTE | 2022-09-13 11:58 | P.DS_ITS ---
Discharge Providers Date of Admission: 09/09/22 16:04 Date of Discharge: September 13, 2022 Attending Provider at Admission: Arnoldo Lopez MD Attending Provider at Discharge: Alfredo Olmedo MD Primary Care Provider: Kassy Michel MD Diagnoses at Discharge Discharge Diagnosis (1) Closed right hip fracture: Status: Acute (2) Closed subtrochanteric fracture: Status: Acute (3) Atrial tachycardia: Status: Acute (4) Benign essential HTN: Status: Acute (5) Closed intertrochanteric fracture of left hip: Status: Acute Qualifiers: Encounter type: initial encounter Fracture alignment: displaced Qualified Code(s): S72.142A - Displaced intertrochanteric fracture of left femur, initial encounter for closed fracture (6) Peripheral arterial disease: Status: Acute Reason for Visit Reason for Visit: fall, hip fracture Hospital Course Hospital Course 82-year-old female who presented to hospital with right hip fracture status post intervention, he is being discharged to [facility] where her is. Her Coumadin was resumed after her surgery, INR 1.4, pharmacy was consulted for Coumadin dosing bridging was not done given history of anemia. She does have iron deficiency anemia with hemoglobin range between 8-8.5. Her FANI improved with IV fluid hydration. She was extremely dehydrated. ORIF 09/[address] Bradshaw Physical Exam Narrative: Patient is appearing much more pleasant and cooperative Clinically does not look fluid overloaded She does have signs of dehydration, skin wrinkling noted Abdomen soft S1, S2 Nonfocal neuro exam Currently on room air Urinary Catheter Management: Britt: Cath Placed During This Visit: yes, but has since been removed by the nurse Reason for Continuing Indwelling Catheter: Decision to DC Catheter Urinary Catheter Date of Insertion: 09/09/22 Date Urinary Catheter Removed: 09/11/22 Time Urinary Catheter Discontinued: 06:13 Discharge Data Studies Completed and Pending Completed Studies During Hospitalization Category Date Time Status CT cervical spin wo con* [id number] Stat Cat Scan 09/09/22 12:[address] head wo con* [id number] Stat Cat Scan 09/09/22 12:42 Completed XR chest 1V portable [id number] Stat Exams 09/09/22 12:42 Completed XR femur RT min 2V* [id number] Routine Exams 09/10/22 10:09 Completed XR femur RT min 2V* [id number] Stat Exams 09/09/22 16:40 Completed XR hip RT 2-3V wo/w pel* [id number] Stat Exams 09/09/22 12:42 Completed XR knee RT 1-2V [id number] Stat Exams 09/09/22 16:40 Completed Pending at discharge Category Date Time Status Occult Blood Stool [Immunochemical Fecal OCB] Routine Lab 09/11/22 07:53 Uncollected Prothrombin Time INR AM LABS Lab 09/14/22 04:00 Ordered Prothrombin Time INR AM LABS Lab 09/15/22 04:00 Ordered Prothrombin Time INR AM LABS Lab 09/16/22 04:00 Ordered Radiology Impressions Cervical Spine CT 09/09/22 12:42 IMPRESSION: Prominent chronic degenerative disease. No acute abnormality. Chest X-Ray 09/09/22 12:42 IMPRESSION: 1. Mild cardiac enlargement unchanged. 2. No acute process. Head CT 09/09/22 12:42 IMPRESSION: No acute intracranial abnormality. Hip/Pelvis X-Ray 09/09/22 12:42 IMPRESSION: 1. Subtrochanteric fracture of the right hip with mild coxa vera deformity. 2. Degenerative change and osteopenia. Knee X-Ray 09/09/22 16:40 IMPRESSION: No acute findings. Femur X-Ray 09/10/22 10:09 IMPRESSION: Status post intramedullary michael nail nail and screw fixation of a right subtrochanteric femur fracture with resulting improved alignment. No immediate hardware complication. Laboratory Results WBC 9.2 10^3/uL (4.0-10.0) 09/13/22 02:49 RBC 2.46 10^6/uL (4.1-5.3) L 09/13/22 02:49 Hgb 8.7 g/dL (11.5-15.3) L 09/13/22 08:24 Hct 29.0 % (37.0-47.0) L 09/13/22 08:24 MCV 99.2 fl (81-99) H 09/13/22 02:49 MCH 30.9 pg (28.0-34.0) 09/13/22 02:49 MCHC 31.1 g/dL (30.0-36.0) 09/13/22 02:49 RDW 12.7 % (12.1-15.1) 09/13/22 02:49 Plt Count 175 10^3/cmm (130-400) 09/13/22 02:49 MPV 10.7 fL (7.4-10.4) H 09/13/22 02:49 Neut % (Auto) 73.8 % 09/13/22 02:49 Lymph % (Auto) 9.0 % 09/13/22 02:49 [place] % (Auto) 15.8 % 09/13/22 02:49 Eos % (Auto) 0.4 % 09/13/22 02:49 Baso % (Auto) 0.3 % 09/13/22 02:49 Neut # (Auto) 6.81 10^3/uL (1.8-7.7) 09/13/22 02:49 Lymph # (Auto) 0.8 10^3/uL (0.8-4.8) 09/13/22 02:49 [place] # (Auto) 1.5 10^3/uL (0.2-0.9) H 09/13/22 02:49 Eos # (Auto) 0.0 10^3/uL (0.0-0.8) 09/13/22 02:49 Baso # (Auto) 0.0 10^3/uL (0.0-0.1) 09/13/22 02:49 Nucleated RBC % (auto) 0 % 09/13/22 02:49 Nucleated RBCs # 0.0 /100WBC 09/13/22 02:49 PT 18.10 SECONDS (12.1-14.9) H 09/13/22 02:49 INR 1.47 (0.8-1.2) H 09/13/22 02:49 APTT 30.3 SECONDS (23.9-36.7) 09/10/22 18:40 Sodium 130 mmol/L (136-145) L 09/13/22 02:49 Potassium 4.6 mmol/L (3.5-5.1) 09/13/22 02:49 Chloride 98 mmol/L (98-107) 09/13/22 02:49 Carbon Dioxide 24 mmol/L (22-29) 09/13/22 02:49 Anion Gap 12.6 (5-19) 09/13/22 02:49 BUN 30 mg/dL (8-23) H 09/13/22 02:49 Creatinine 1.2 mg/dL (0.5-0.9) H 09/13/22 02:49 GFR Calculation Not Reportable 09/13/22 02:49 Glucose 111 mg/dL (65-115) 09/13/22 02:49 Calculated Osmolality 277 mOsm/kg (285-295) L 09/13/22 02:49 Lactate 2.9 mmol/L (0.5-2.2) H 09/10/22 18:40 Calcium 9.8 mg/dL (8.5-10.5) 09/13/22 02:49 Phosphorus 5.1 mg/dL (2.5-4.5) H 09/10/22 04:43 Magnesium 1.7 mg/dL (1.7-2.3) 09/10/22 18:40 Iron 17 ug/dL (37-145) L 09/11/22 01:10 AUT[employer]BILE INSURANCE CLAIM EXAMINER TIBC 156 mcg/dl 09/11/22 01:10 AUT[employer]OBILE INSURANCE CLAIM EXAMINER % Saturation 10.8 % (20-50) L 09/11/22 01:10 AUT[employer]OBI[employer] INSURANCE CLAIM EXAMINER Unsat Iron Binding 139 ug/dL (112-347) 09/11/22 01:10 AUTOMOBILE INSURANCE CLAIM EXAMINER Ferritin 552 ng/mL (15-150) H 09/11/22 01:10 AUTOMOBILE INSURANCE CLAIM EXAMINER Total Bilirubin 0.3 mg/dL (0.15-1.2) 09/10/22 18:40 AST 120 U/L (0-32) H 09/10/22 18:40 ALT 104 U/L (0-33) H 09/10/22 18:40 Alkaline Phosphatase 36 U/L (35-105) 09/10/22 18:40 Troponin T Baseline 48 ng/L (0-10) H 09/10/22 18:40 Troponin T 120 Minute 44.63 ng/L (0-10) H 09/10/22 20:40 Delta Troponin T -3.37 ABS# (0-10) L 09/10/22 20:40 Troponin T Hi Sens 6Hr 47.55 ng/L (0-10) H 09/11/22 01:10 [employer] INS[employer]ANCE CLAIM EXAMINER Troponin T Hi Sens 6Hr Delta -0.45 ng/L (0-12) L 09/11/22 01:10 [employer] INSURANCE CLAIM EXAMINER NT-Pro-B Natriuret Pep 897 pg/mL (0-450) H 09/09/22 14:05 Total Protein 5.1 g/dL (6.6-8.7) L 09/10/22 18:40 Albumin 3.2 g/dL (3.5-5.2) L 09/10/22 18:40 Globulin 1.9 g/dL (1.3-4.6) 09/10/22 18:40 Vitamin B12 > 2000 pg/mL (232-1245) H 09/11/22 01:10 [employer] INSURANCE CLAIM EXAMINER TSH 2.02 uIU/mL (0.27-4.20) 09/10/22 04:43 Urine Color Yellow (Yellow) 09/09/22 17:30 Urine Appearance Hazy (CLEAR) A 09/09/22 17:30 Urine pH 8 (5-7) H 09/09/22 17:30 Ur Specific [place] 1.020 (1.005-1.030) 09/09/22 17:30 Urine Protein Neg (Negative) 09/09/22 17:30 Urine Glucose (UA) Norm (Normal) 09/09/22 17:30 Urine Ketones Negative (Negative) 09/09/22 17:30 Urine Blood Neg (Negative) 09/09/22 17:30 Urine Nitrate Negative (Negative) 09/09/22 17:30 Urine Bilirubin Neg (Negative) 09/09/22 17:30 Prot Sulfosalicylic Acd Negative (Negative) 09/09/22 17:30 Urine Urobilinogen Neg mg/dL (Negative) 09/09/22 17:30 Ur Leukocyte Esterase Negative (Negative) 09/09/22 17:30 SARS-CoV-2 Ag (Rapid) negative (Negative) 09/13/22 05:20 Vitals Last Vital Signs Temp 97.4 F L 09/13/22 07:45 Pulse 74 09/13/22 07:45 Resp 15 09/13/22 07:45 BP 136/62 09/13/22 07:45 Pulse Ox 92 09/13/22 07:45 O2 Del Method 09/13/22 07:45 O2 Flow Rate 2 09/11/22 20:00 Discharge Plan Discharge Patient Disposition: Xfer SNF Condition: Stable Prescriptions: New oxycodone 5 mg Tablet 5 mg PO Q6H PRN (Reason: Moderate Pain) 7 Days Qty: 28 0RF ondansetron 4 mg tablet,disintegrating 4 mg PO DAILY PRN (Reason: nausea and vomiting) 5 Days Qty: 10 0RF Colace 100 mg capsule 100 mg PO DAILY 10 Days Qty: 10 0RF hydrocodone-acetaminophen 5-325 mg tablet 1 tab PO DAILY PRN (Reason: pain) Qty: 10 0RF Continued trazodone 50 mg tablet 50 mg PO BEDTIME metoprolol succinate 25 mg tablet extended release 24 hr 25 mg PO BID Qty: 180 3RF citalopram 10 mg tablet 10 mg PO QAM ferrous gluconate 324 mg (37.5 mg iron) tablet 324 mg PO QAM multivitamin Tablet 1 tab PO DAILY levothyroxine 50 mcg tablet 50 mcg PO DAILY@22 turmeric 400 mg Capsule 400 mg PO DAILY calcium carbonate-vitamin D3 600 mg(1,500mg) -200 unit Tablet 1 tab PO BID cholecalciferol (vitamin D3) [Vitamin D3] 125 mcg (5,000 unit) Tablet 125 mcg PO DAILY Fish Oil 350-600 mg Capsule 1 cap PO BID lisinopril 5 mg tablet 5 mg PO QAM zinc acetate 50 mg (zinc) Capsule 50 mg PO DAILY Vitamin C 500 mg Tablet 500 mg PO BID potassium gluconate 595 mg (99 mg) Tablet 595 mg PO QAM Changed warfarin 5 mg tablet 5 mg PO BEDTIME Qty: 30 0RF furosemide 20 mg tablet 20 mg PO DAILY PRN (Reason: oedema) Qty: 10 0RF Discharge Orders: Discharge Order (Routine); Ordered 09/13/22 Ordered By: Alfredo Olmedo Other Ambulatory Orders: Physical Therapy Eval and Treat Outpatient (Order) Timeframe: 3 Days Facility: [facility] - Location: Physical Therapy Ordered By: Arnoldo Lopez Referrals: [facility] [Outside] Kassy Michel MD [Primary Care Provider] - Pasha Bradshaw DO [Physician] - 09/22/22 11:00 am Discharge Activity: Limit activity as instructed Activity Restrictions/Additional Instructions: Orthopedic discharge instructions: Patient may be weightbearing as tolerated to the right lower extremity Leave dressings on in place for a week or may be changed as needed if saturated, may take dressings off to shower, no baths or soaks. Then pat incision dry and redress with a dry dressing Take pain medication as prescribed Patient may supplement with Tylenol and Motrin as needed for pain control Continue with ice as needed for pain and swelling Encourage range of motion of the hip knee foot and ankle Take Coumadin as prescribed by hospitalist/primary for DVT prophylaxis, continue to follow with primary care physician for monitoring and management Follow-up with Dr. Bradshaw in office in 2 weeks Contact the office for any questions or concerns Discharge Attestations Time Spent in Discharge Care*: less than 30 min Status at Discharge: Cognitive status at discharge: cognitively intact , Behavioral status at discharge: cooperative , Quality Metrics Clinical Quality Measures [ No reported AMI, CVA or VTE this stay] Coding Level of Care Code Acute Chg FW DC note Diagnoses Closed right hip fracture S72.001A Closed subtrochanteric fracture S72.23XA Atrial tachycardia I47.1 Benign essential HTN I10 Closed intertrochanteric fracture of left hip S72.142A Encounter type: initial encounter Fracture alignment: displaced Peripheral arterial disease I73.9
== END 2022-09-13 13:03 | disposition skilled nursing facility (03) | DRG 481 ==
LOC: ER 14:33 → MEDSURG 16:05
PROVIDERS: Student in an Organized Health Care Education/Training Program; Admitting Provider Family Medicine; Emergency Provider Emergency Medicine; PCP Family Medicine; Visit Provider Internal Medicine
PROC: 0QS606Z Reposition Right Upper Femur with Intramedullary Internal Fixation Device, Open Approach (ICD-10-PCS; CPT 27245; principal; 2022-09-10 08:00)
DX: S72.21XA Displaced subtrochanteric fracture of right femur, initial encounter for closed fracture (principal); N17.9 Acute kidney failure, unspecified; W18.39XA Other fall on same level, initial encounter; I25.10 Atherosclerotic heart disease of native coronary artery without angina pectoris; Z86.74 Personal history of sudden cardiac arrest; I48.91 Unspecified atrial fibrillation; Z79.01 Long term (current) use of anticoagulants; E03.9 Hypothyroidism, unspecified; I10 Essential (primary) hypertension; D50.8 Other iron deficiency anemias; I95.9 Hypotension, unspecified; E86.0 Dehydration; I73.9 Peripheral vascular disease, unspecified; Z79.891 Long term (current) use of opiate analgesic
CPT/HCPCS: 36415; 51702; 51798; 70450; 71045; 72125; 73502; 73551; 73552; 73560; 76000; 80048; 80053; 81003; 82607; 82728; 83540; 83550; 83605; 83735; 83880; 84100; 84443; 84484; 85014; 85018; 85025; 85610; 85730; 87426; 93005; 94664; 96372; 96374; 96375; 97110; 97116; 97162; 97167; 97530; 97535; 99285; C1713; C1776; J1170; J2270; J2370; J2405; J2704; J2710; J3010; J3430; J3490; J7040

== ENCOUNTER 2022-09-15 08:17 | Outpatient (CLI) | payer MEDICARE, OTHER, SELFPAY ==
[2022-09-15 08:33] LABS: Basophils # 0.1 10^3/uL (0.0-0.1); Basophils % 0.9 %; Eosinophils # 0.1 10^3/uL (0.0-0.8); Eosinophils % 2.3 %; Hematocrit 23.8 % (37.0-47.0); Hemoglobin 7.7 g/dL (11.5-15.3); Mean Corpuscular HGB Conc 32.4 g/dL (30.0-36.0); Mean Corpuscular Hemoglobin 31.3 pg (28.0-34.0); Mean Corpuscular Volume 96.7 fl (81-99); Mean Platelet Volume 10.6 fL (7.4-10.4); Monocytes # 0.9 10^3/uL (0.2-0.9); Monocytes % 16.4 %; Neutrophils # 3.56 10^3/uL (1.8-7.7); Neutrophils % 62.9 %; Nucleated Red Blood Cells % 0 %; Platelet Count 255 10^3/cmm (130-400); Red Blood Count 2.46 10^6/uL (4.1-5.3); Red Cell Distribution Width 12.8 % (12.1-15.1); White Blood Count 5.7 10^3/uL (4.0-10.0)
== END 2022-09-15 08:18 | disposition home or self-care (01) ==
PROVIDERS: PCP Family Medicine; Visit Provider Nurse Practitioner Family
DX: D64.9 Anemia, unspecified (principal)
CPT/HCPCS: 85025

== ENCOUNTER → 2022-09-20 14:53 | Outpatient (BNVA) | payer OTHER, SELFPAY | PROVIDERS: PCP Family Medicine; Visit Provider Student in an Organized Health Care Education/Training Program | DX: Z98.890 Other specified postprocedural states (principal); S72.23 Displaced subtrochanteric fracture of unspecified femur; S72.002D Fracture of unspecified part of neck of left femur, subsequent encounter for closed fracture with routine healing; X58.XXXD Exposure to other specified factors, subsequent encounter | CPT/HCPCS: 73552; 99024 ==

== ENCOUNTER → 2022-10-18 09:38 | Outpatient (BNVA) | payer MEDICARE, OTHER, SELFPAY | PROVIDERS: PCP Family Medicine; Visit Provider Student in an Organized Health Care Education/Training Program | DX: S72.141D Displaced intertrochanteric fracture of right femur, subsequent encounter for closed fracture with routine healing (principal); X58.XXXD Exposure to other specified factors, subsequent encounter | CPT/HCPCS: 73552; 99024 ==

== ENCOUNTER → 2022-12-15 10:29 | Outpatient (BNVA) | payer MEDICARE, OTHER, SELFPAY | PROVIDERS: PCP Family Medicine; Visit Provider Student in an Organized Health Care Education/Training Program | DX: S72.22XA Displaced subtrochanteric fracture of left femur, initial encounter for closed fracture (principal); X58.XXXA Exposure to other specified factors, initial encounter | CPT/HCPCS: 73552; 99213 ==

== ENCOUNTER → 2023-01-17 14:11 | Outpatient (BNVA) | payer MEDICARE, OTHER, SELFPAY | PROVIDERS: PCP Family Medicine; Visit Provider Nurse Practitioner Family | DX: I25.10 Atherosclerotic heart disease of native coronary artery without angina pectoris (principal); I10 Essential (primary) hypertension; I48.91 Unspecified atrial fibrillation; Z79.01 Long term (current) use of anticoagulants | CPT/HCPCS: 99214 ==

== ENCOUNTER 2023-01-26 14:37 | Oncology outpatient (recurring) (ONCR) | payer MEDICARE, OTHER, SELFPAY ==
[2023-01-26] MEDS: denosumab 60 mg SDV SUBCUT (15:20)
[2023-01-26 15:22] VITALS: BP 135/73; PULSE 52; RESP 18; TEMP 36.6; O2SAT 98
--- NOTE | 2023-01-26 16:19 | PC.NURSE ---
results for the calcium from [facility] 10.5 on calcium and okay to give prolia.mm
== END 2023-02-03 23:59 | disposition home or self-care (01) ==
LOC: ONCMED 14:38
PROVIDERS: PCP Family Medicine; Visit Provider Family Medicine
DX: M81.0 Age-related osteoporosis without current pathological fracture (principal); Z79.899 Other long term (current) drug therapy
CPT/HCPCS: 96401; J0897

== ENCOUNTER → 2023-03-28 10:29 | Outpatient (BNVA) | payer MEDICARE, OTHER, SELFPAY | PROVIDERS: PCP Family Medicine; Visit Provider Podiatrist Foot & Ankle Surgery | DX: E11.8 Type 2 diabetes mellitus with unspecified complications (principal); L60.3 Nail dystrophy; I73.9 Peripheral vascular disease, unspecified; L84 Corns and callosities | CPT/HCPCS: 11055; 11721 ==

== ENCOUNTER 2023-03-30 14:23 | Outpatient (CLI) | payer MEDICARE, OTHER, SELFPAY ==
--- NOTE | 2023-03-30 14:49 | MM_ITS ---
WS: [id number] BILATERAL 3D TOMOSYNTHESIS DIGITAL SCREENING MAMMOGRAPHY WITH CAD CLINICAL INFORMATION: SCREENING HISTORY: Screening mammogram. No current complaints. COMPARISON: January 26, 2022 TECHNIQUE: Bilateral CC and MLO views. FINDINGS: Scattered fibroglandular densities bilaterally. No suspicious focal mass, asymmetry, calcifications, or architectural distortion. No evidence of malignancy. Lucent centered calcification RIGHT breast. MM/[place] [id number] IMPRESSION: BI-RADS: 2-Benign FOLLOW UP: 1 Year Follow-up Recommend return to annual screening mammography.
== END 2023-03-30 14:24 | disposition home or self-care (01) ==
PROVIDERS: PCP Family Medicine; Visit Provider Family Medicine
DX: Z12.31 Encounter for screening mammogram for malignant neoplasm of breast (principal)
CPT/HCPCS: 77063; 77067

== ENCOUNTER → 2023-04-13 15:03 | Outpatient (BNVA) | payer MEDICARE, OTHER, SELFPAY | PROVIDERS: PCP Family Medicine; Visit Provider Student in an Organized Health Care Education/Training Program | DX: S72.21XA Displaced subtrochanteric fracture of right femur, initial encounter for closed fracture (principal); X58.XXXA Exposure to other specified factors, initial encounter | CPT/HCPCS: 73502; 99213 ==

== ENCOUNTER → 2023-05-30 11:02 | Outpatient (BNVA) | payer MEDICARE, OTHER, SELFPAY | PROVIDERS: PCP Family Medicine; Visit Provider Podiatrist Foot & Ankle Surgery | DX: L60.8 Other nail disorders (principal); L60.3 Nail dystrophy; L84 Corns and callosities; R60.9 Edema, unspecified; I73.9 Peripheral vascular disease, unspecified | CPT/HCPCS: 11055; 11721 ==

== ENCOUNTER → 2023-06-29 13:50 | Outpatient (BNVA) | payer MEDICARE, OTHER, SELFPAY | PROVIDERS: PCP Family Medicine; Visit Provider Nurse Practitioner Family | DX: L81.4 Other melanin hyperpigmentation; D22.5 Melanocytic nevi of trunk; L85.3 Xerosis cutis; L57.0 Actinic keratosis; L57.8 Other skin changes due to chronic exposure to nonionizing radiation | CPT/HCPCS: 17000; 99213 ==

== ENCOUNTER → 2023-07-18 14:40 | Outpatient (BNVA) | payer MEDICARE, OTHER, SELFPAY | PROVIDERS: PCP Family Medicine; Visit Provider Internal Medicine | DX: D50.8 Other iron deficiency anemias (principal); I10 Essential (primary) hypertension; I47.1 Supraventricular tachycardia | CPT/HCPCS: 36415; 85025; 99214 ==

== ENCOUNTER 2023-08-16 10:57 | Oncology outpatient (recurring) (ONCR) | payer MEDICARE, OTHER, SELFPAY ==
[2023-08-16 11:43] LABS: Calcium 10.3 mg/dL (8.5-10.5)
[2023-08-16] MEDS: denosumab 60 mg SDV SUBCUT (11:48)
[2023-08-16 11:54] VITALS: BP 126/78; PULSE 55; RESP 17; TEMP 35.9; O2SAT 99
--- NOTE | 2023-08-16 16:21 | PC.NURSE ---
Called patient to let her know about her Calcium lab result. I also let the patient know that I had faxed the result to Dr. Kassy Michel. Patient acknowledged understanding and had no other questions.
== END 2023-09-05 23:59 | disposition home or self-care (01) ==
LOC: ONCMED 10:59
PROVIDERS: PCP Family Medicine; Visit Provider Family Medicine
DX: M81.0 Age-related osteoporosis without current pathological fracture (principal)
CPT/HCPCS: 36415; 82310; 96372; J0897

== ENCOUNTER → 2023-08-23 14:07 | Outpatient (BNVA) | payer MEDICARE, OTHER, SELFPAY | PROVIDERS: PCP Family Medicine; Visit Provider Podiatrist Foot & Ankle Surgery | DX: L60.3 Nail dystrophy (principal); L84 Corns and callosities; I73.9 Peripheral vascular disease, unspecified | CPT/HCPCS: 11055; 11721 ==

== ENCOUNTER → 2023-09-21 13:54 | Outpatient (BNVA) | payer MEDICARE, OTHER, SELFPAY | PROVIDERS: PCP Family Medicine; Visit Provider Student in an Organized Health Care Education/Training Program | DX: S72.22XD Displaced subtrochanteric fracture of left femur, subsequent encounter for closed fracture with routine healing; X58.XXXD Exposure to other specified factors, subsequent encounter | CPT/HCPCS: 73502; 99213 ==

== ENCOUNTER → 2023-11-29 13:45 | Outpatient (BNVA) | payer MEDICARE, OTHER, SELFPAY | PROVIDERS: PCP Family Medicine; Visit Provider Podiatrist Foot & Ankle Surgery | DX: L60.3 Nail dystrophy (principal); L84 Corns and callosities; I73.9 Peripheral vascular disease, unspecified | CPT/HCPCS: 11055; 11721 ==

== ENCOUNTER → 2024-01-23 15:01 | Outpatient (BNVA) | payer MEDICARE, OTHER, SELFPAY | PROVIDERS: PCP Family Medicine; Visit Provider Internal Medicine | DX: D50.8 Other iron deficiency anemias (principal); I10 Essential (primary) hypertension; I47.19 Other supraventricular tachycardia | CPT/HCPCS: 99214 ==

== ENCOUNTER 2024-02-26 14:45 | Oncology outpatient (recurring) (ONCR) | payer MEDICARE, OTHER, SELFPAY ==
[2024-02-26] MEDS: denosumab 60 mg SDV SUBCUT (15:06)
[2024-02-26 15:14] VITALS: BP 134/82; PULSE 56; RESP 16; TEMP 36.3; O2SAT 97
== END 2024-03-05 23:59 | disposition home or self-care (01) ==
LOC: ONCMED 14:45
PROVIDERS: PCP Family Medicine; Visit Provider Family Medicine
DX: M81.0 Age-related osteoporosis without current pathological fracture (principal); Z79.899 Other long term (current) drug therapy
CPT/HCPCS: 96372; J0897

== ENCOUNTER → 2024-02-28 12:55 | Outpatient (BNVA) | payer MEDICARE, OTHER, SELFPAY | PROVIDERS: PCP Family Medicine; Visit Provider Podiatrist Foot & Ankle Surgery | DX: L60.3 Nail dystrophy (principal); L84 Corns and callosities; I73.9 Peripheral vascular disease, unspecified | CPT/HCPCS: 11055; 11721 ==

== ENCOUNTER 2024-04-02 15:21 | Outpatient (CLI) | payer MEDICARE, OTHER, SELFPAY ==
--- NOTE | 2024-04-02 15:27 | MM_ITS ---
WS: [id number] VIEWS: MLO and CC views both breasts. 3D digital tomosynthesis is also included in this exam. Comparison made with prior exam of 05/01/2012, 06/11/2013, 07/08/2014, 07/14/2015, 09/01/2016, 10/19/2017, 1 12/23/2017, 11/14/2019, 11/25/2020, 01/26/2022,. Findings: There was no sign of mass, architectural distortion or suspicious calcification in either breast. The re are scattered areas of fibroglandular density MM/[place] [id number] Impression: BI-RADS: 2-Benign finding. FOLLOW-UP: 1 Year Follow-up This mammogram was also analyzed by the Computer Aided Detection System R2 Imag e Relationship Counselor.
== END 2024-04-02 15:22 | disposition home or self-care (01) ==
LOC: RAD 15:21
PROVIDERS: PCP Family Medicine; Visit Provider Family Medicine
DX: Z12.31 Encounter for screening mammogram for malignant neoplasm of breast (principal); R92.323 Mammographic fibroglandular density, bilateral breasts
CPT/HCPCS: 77063; 77067

== ENCOUNTER → 2024-05-21 10:50 | Outpatient (BNVA) | payer MEDICARE, OTHER, SELFPAY | PROVIDERS: PCP Family Medicine; Visit Provider Psychiatry & Neurology Neurology | DX: R29.818 Other symptoms and signs involving the nervous system (principal); R29.898 Other symptoms and signs involving the musculoskeletal system; M54.50 Low back pain, unspecified; I48.91 Unspecified atrial fibrillation; Z79.01 Long term (current) use of anticoagulants | CPT/HCPCS: 99203 ==

== ENCOUNTER → 2024-06-24 13:56 | Outpatient (BNVA) | payer MEDICARE, OTHER, SELFPAY | PROVIDERS: PCP Family Medicine; Visit Provider Podiatrist Foot & Ankle Surgery | DX: L60.3 Nail dystrophy (principal); L84 Corns and callosities; I73.9 Peripheral vascular disease, unspecified | CPT/HCPCS: 11055; 11721 ==

== ENCOUNTER 2024-07-01 15:01 | Outpatient (CLI) | payer MEDICARE, OTHER, SELFPAY ==
--- NOTE | 2024-07-01 15:15 | MR_ITS ---
WS: [id number] MRI LUMBAR SPINE NONCONTRAST HISTORY: I73.9 - Peripheral vascular disease, unspecified COMPARISON: None available. TECHNIQUE: Sagittal and axial multisequence imaging is submitted. Survey of the entire spine demonstrates advanced degenerative disc disease in the cervical spine at C 3-4, C4-5 and C5-6. Mild anterolisthesis of C3. Retrolisthesis of C4 contacting the cervical cord. Mi d cervical cord is being displaced posteriorly. There is mild anterior wedging of C4 and C5. Small di sc protrusions in the lower thoracic spine without contact on the thoracic cord. Mild scoliosis and curvature lumbar spine. Increase in the lumbar lordosis. Disc spaces are desiccated and narrowed throughout but most significant at L4-5 and L5-S1. There is f luid in the L5-S1 disc. S1 is partially lumbarized. Conus terminates normally at L1-2 disc level. L1-L2: Mild annular disc bulging with mild bilateral foraminal stenosis. L2-L3: Slight retrolisthesis of L2 with mild annular disc bulging, ligamentum flavum and facet arthri tis. Mild narrowing of the RIGHT subarticular recess and mild bilateral foraminal stenosis. L3-L4: Mild annular disc bulging with osteophytic ridging. Marked ligamentum flavum and facet arthrit is. Mild encroachment upon the ventral thecal sac and subarticular recesses with mild RIGHT foraminal stenosis. There is a shallow RIGHT foraminal disc protrusion. L4-L5: Diffuse annular disc bulging and osteophytic ridging. Moderate central to LEFT paracentral dis c protrusion contacting the ventral thecal sac and deforming the central canal. Disc asymmetrically e xtends into the foramen. Moderate central, subarticular recess and foraminal stenosis. Most significa nt encroachment is upon the LEFT traversing L5 nerve root. L5-S1: Mild disc bulging with a central disc protrusion. Marked facet arthropathy and mild ligamentum flavum hypertrophy. Moderate to severe LEFT foraminal stenosis due to osteophyte and disc disease. N o central stenosis. Rudimentary disc at S1-S2. 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 Paravertebral soft tissues are negative. MR/MR lumbar spine wo con* [id number] IMPRESSION: 1. Advanced degenerative disc disease at L4-5 and L5-S1. 2. Degenerative scoliosis lumbar spine with increase in the lumbar lordosis. 3. L4-5: Moderate central to LEFT paracentral disc protrusion. Degenerative ch anges at L4 result in moderate central, subarticular recess and foraminal steno sis. 4. L5-S1: Moderate to severe LEFT foraminal stenosis due to osteophyte and dis c and facet disease. 5. L3-4: Mild RIGHT foraminal stenosis. 6. L2-3: Mild RIGHT subarticular recess narrowing and bilateral foraminal sten osis. 7. L1-2: Mild bilateral foraminal stenosis. 8. Disc and vertebral body degenerative changes in the cervical spine with the C4 vertebral body contacting the cervical cord. This can be evaluated further by MRI C-spine.
--- NOTE | 2024-07-01 16:00 | MR_ITS ---
WS: [id number] MRI BRAIN WITHOUT CONTRAST HISTORY: R26.89 - Other abnormalities of gait and mobility COMPARISON: None available. TECHNIQUE: Diffusion imaging, multiplanar T1, T2 and FLAIR imaging obtained. No evidence for acute infarct or hemorrhage. [place]-white matter differentiation is normal. Mild volume loss with mild small vessel ischemic disease. Increased T2 and FLAIR signal hyperintensities are pre dominantly around the occipital lobes of the lateral ventricles greater on the LEFT than the RIGHT. N o associated hemorrhage. There is slight dilatation of the ventricles and extra-axial spaces on the basis of atrophy. Mild hip pocampal atrophy. No inferior displacement of cerebellar tonsils. The sella turcica and pituitary gland are unremarkabl e. Dural venous sinuses and [place] of [place] demonstrate no abnormality on this unenhanced studies. Paranasal sinuses: Clear. Mastoid air cells: Small amount of fluid in the mastoid air cells. Calvarium and scalp: Intact. Cervical spondylosis. C3 anterolisthesis by 4 mm. There is mild disc contact on the ventral cervical cord at the C3-4 disc level with posterior displacement. MR/MR head wo con* [id number] IMPRESSION: 1. No acute infarct or hemorrhage. 2. Mild volume loss and atrophy with mild small vessel ischemic disease. No pr ior infarct. 3. Mild hippocampal atrophy, LEFT greater than RIGHT. 4. C3 anterolisthesis by 4 mm with a central disc or osteophyte contacting the cord. This can be further evaluated by noncontrast MRI cervical spine.
== END 2024-07-01 15:02 | disposition home or self-care (01) ==
LOC: RAD 15:02
PROVIDERS: PCP Family Medicine; Visit Provider Psychiatry & Neurology Neurology
DX: M43.12 Spondylolisthesis, cervical region (principal); M51.36 Other intervertebral disc degeneration, lumbar region; M51.37 Other intervertebral disc degeneration, lumbosacral region; M40.56 Lordosis, unspecified, lumbar region; M51.26 Other intervertebral disc displacement, lumbar region; M25.78 Osteophyte, vertebrae; I73.9 Peripheral vascular disease, unspecified; R26.89 Other abnormalities of gait and mobility
CPT/HCPCS: 70551; 72148

== ENCOUNTER → 2024-07-23 14:26 | Outpatient (BNVA) | payer MEDICARE, OTHER, SELFPAY | PROVIDERS: PCP Family Medicine; Visit Provider Nurse Practitioner Family | DX: L81.4 Other melanin hyperpigmentation (principal); D22.5 Melanocytic nevi of trunk; L57.8 Other skin changes due to chronic exposure to nonionizing radiation; L57.0 Actinic keratosis; Z85.828 Personal history of other malignant neoplasm of skin | CPT/HCPCS: 17000; 99213 ==

== ENCOUNTER → 2024-07-25 14:35 | Outpatient (BNVA) | payer MEDICARE, OTHER, SELFPAY | PROVIDERS: PCP Family Medicine; Visit Provider Orthopaedic Surgery | DX: M54.41 Lumbago with sciatica, right side (principal); M54.42 Lumbago with sciatica, left side; G89.29 Other chronic pain | CPT/HCPCS: 72110; 99204 ==

== ENCOUNTER → 2024-07-30 15:25 | Outpatient (BNVA) | payer MEDICARE, OTHER, SELFPAY | PROVIDERS: PCP Family Medicine; Visit Provider Internal Medicine | DX: D50.8 Other iron deficiency anemias (principal); I10 Essential (primary) hypertension; I47.10 Supraventricular tachycardia, unspecified | CPT/HCPCS: 99213 ==

== ENCOUNTER 2024-09-05 14:15 | Oncology outpatient (recurring) (ONCR) | payer MEDICARE, OTHER, SELFPAY ==
[2024-09-05 14:51] VITALS: BP 120/68; PULSE 64; RESP 16; TEMP 36.3; O2SAT 95
[2024-09-05] MEDS: denosumab 60 mg SDV SUBCUT (14:54)
[2024-09-05 15:44] LABS: Calcium 8.6 mg/dL (8.5-10.5)
== END 2024-09-05 23:59 | disposition home or self-care (01) ==
LOC: ONCMED 14:16
PROVIDERS: PCP Family Medicine; Visit Provider Family Medicine
DX: M81.0 Age-related osteoporosis without current pathological fracture (principal)
CPT/HCPCS: 36415; 82310; 96372; J0897

== ENCOUNTER → 2024-09-11 12:56 | Outpatient (BNVA) | payer MEDICARE, OTHER, SELFPAY | PROVIDERS: PCP Family Medicine; Visit Provider Podiatrist Foot & Ankle Surgery | DX: L60.3 Nail dystrophy (principal); L84 Corns and callosities; I73.9 Peripheral vascular disease, unspecified | CPT/HCPCS: 11055; 11721 ==

== ENCOUNTER → 2024-11-13 14:15 | Outpatient (BNVA) | payer MEDICARE, OTHER, SELFPAY | PROVIDERS: PCP Family Medicine; Visit Provider Podiatrist Foot & Ankle Surgery | DX: L60.3 Nail dystrophy (principal); L84 Corns and callosities; I73.9 Peripheral vascular disease, unspecified | CPT/HCPCS: 11055; 11721 ==

== ENCOUNTER → 2024-11-21 08:07 | Outpatient (BNVA) | payer MEDICARE, OTHER, SELFPAY | PROVIDERS: PCP Family Medicine; Visit Provider Student in an Organized Health Care Education/Training Program | DX: S72.002A Fracture of unspecified part of neck of left femur, initial encounter for closed fracture (principal); M25.551 Pain in right hip; Z98.890 Other specified postprocedural states; Z87.81 Personal history of (healed) traumatic fracture; X58.XXXA Exposure to other specified factors, initial encounter | CPT/HCPCS: 73502; 99213 ==

== ENCOUNTER → 2025-02-04 12:55 | Outpatient (BNVA) | payer MEDICARE, OTHER, SELFPAY | PROVIDERS: PCP Family Medicine; Visit Provider Podiatrist Foot & Ankle Surgery | DX: I73.9 Peripheral vascular disease, unspecified (principal); L60.3 Nail dystrophy; L84 Corns and callosities | CPT/HCPCS: 11055; 11721 ==

== ENCOUNTER → 2025-03-12 13:38 | Outpatient (BNVA) | payer MEDICARE, OTHER, SELFPAY | PROVIDERS: PCP Family Medicine; Visit Provider Internal Medicine | DX: I10 Essential (primary) hypertension (principal); D50.8 Other iron deficiency anemias; I47.19 Other supraventricular tachycardia | CPT/HCPCS: 99214 ==

== ENCOUNTER 2025-03-18 11:22 | Oncology outpatient (recurring) (ONCR) | payer MEDICARE, OTHER, SELFPAY ==
[2025-03-18] MEDS: denosumab 60 mg SDV SUBCUT (11:35)
== END 2025-04-05 23:59 | disposition home or self-care (01) ==
PROVIDERS: PCP Family Medicine; Visit Provider Family Medicine
DX: M81.0 Age-related osteoporosis without current pathological fracture (principal); Z79.899 Other long term (current) drug therapy
CPT/HCPCS: 96372; 96377; J0897

== ENCOUNTER 2025-04-23 10:54 | Outpatient (CLI) | payer MEDICARE, OTHER, SELFPAY ==
--- NOTE | 2025-04-23 | MM_ITS ---
WS: [id number] BILATERAL 3D TOMOSYNTHESIS DIGITAL SCREENING MAMMOGRAPHY WITH CAD CLINICAL INFORMATION: ANNUAL SCREENING HISTORY: Screening mammogram. No current complaints. COMPARISON: 2023 TECHNIQUE: Bilateral CC and MLO views. FINDINGS: Scattered fibroglandular densities bilaterally. No suspicious focal mass, asymmetry, calcifications, or architectural distortion. No evidence of malignancy. MM/MM scr BI tomosynthesis [id number] IMPRESSION: DENSITY: There are scattered areas of fibroglandular density. BI-RADS: 1 - Negative. FOLLOW UP: 1 Year Follow-up Recommend return to annual screening mammography.
== END 2025-04-23 10:55 | disposition home or self-care (01) ==
PROVIDERS: PCP Family Medicine; Visit Provider Family Medicine
DX: Z12.31 Encounter for screening mammogram for malignant neoplasm of breast (principal)
CPT/HCPCS: 77063; 77067

== ENCOUNTER → 2025-04-29 11:20 | Outpatient (BNVA) | payer MEDICARE, OTHER, SELFPAY | PROVIDERS: PCP Family Medicine; Visit Provider Podiatrist Foot & Ankle Surgery | DX: I73.9 Peripheral vascular disease, unspecified (principal); L60.3 Nail dystrophy; L84 Corns and callosities; L60.8 Other nail disorders | CPT/HCPCS: 11056; 11721 ==

== ENCOUNTER 2025-05-09 15:17 | Emergency (ER) | payer MEDICARE, OTHER, SELFPAY ==
[2025-05-09] VITALS (7 sets, daily range): BP systolic 145–174; BP diastolic 68–88; PULSE 53–64; RESP 16–17; TEMP 36.7; O2SAT 90–96; BMI 18.4
--- NOTE | 2025-05-09 15:26 | XRR_ITS ---
PROCEDURE INFORMATION: Exam: XR Chest Exam date and time: 05/09/2025 3:30 PM Age: 84 years old Clinical indication: Injury or trauma; Fall; Blunt trauma (contusions or hematomas); Additional info: Rib pain, SOB TECHNIQUE: Imaging protocol: Radiologic exam of the chest. Views: 1 view. COMPARISON: CR XR chest 1V portable [id number] 09/09/2022 1:46 PM FINDINGS: Lungs: Unremarkable. No consolidation. Pleural spaces: Unremarkable. No pleural effusion. No pneumothorax. Heart/Mediastinum: Unremarkable. No cardiomegaly. Bones/joints: Unremarkable. XR/XR chest 1V portable [id number] IMPRESSION: No acute findings.
[2025-05-09 16:05] LABS: Hematocrit 40.2 % (36-47); Hemoglobin 12.80 g/dL (11.27-16.99); Mean Corpuscular HGB Conc 31.8 g/dL (30-55); Mean Corpuscular Hemoglobin 30.3 pg (27-33); Mean Corpuscular Volume 95.3 fl (85-98); Nucleated Red Blood Cells % 0 %; Platelet Count 214 10^3/cmm (157-399); Red Blood Count 4.22 10^6/uL (3.85-5.65); White Blood Count 8.26 10^3/uL (3.29-11.43)
[2025-05-09 16:23] LABS: INR 2.08 (0.8-1.2); Prothrombin Time 24.60 SECONDS (12.1-14.9)
[2025-05-09 16:26] LABS: Alanine Aminotransferase 15 U/L (0-33); Albumin Level 3.8 g/dL (3.5-5.2); Alkaline Phosphatase 50 U/L (35-105); Anion Gap 13.4 (5-19); Aspartate Amino Transferase 17 U/L (0-32); Blood Urea Nitrogen 20 mg/dL (8-23); Calcium 9.2 mg/dL (8.5-10.5); Carbon Dioxide 27 mmol/L (22-29); Chloride 103 mmol/L (98-107); Creatinine Clr Calc Pharmacy 37.2106; Globulin 2.6 g/dL (1.3-4.6); Glucose 120 mg/dL (65-115); Osmolality Calculated 292 mOsm/kg (285-295); Potassium 4.4 mmol/L (3.5-5.1); Sodium 139 mmol/L (136-145); Total Protein 6.4 g/dL (6.6-8.7)
--- NOTE | 2025-05-09 16:33 | CTR_ITS ---
PROCEDURE INFORMATION: Exam: CT Cervical Spine Without Contrast Exam date and time: 05/09/2025 5:03 PM Age: 84 years old Clinical indication: Injury or trauma; Fall; Blunt trauma; Additional info: Fall, hit head on thinners TECHNIQUE: Imaging protocol: Computed tomography of the cervical spine without contrast. Radiation optimization: All CT scans at this facility use at least one of these dose optimization techniques: automated exposure control; mA and/or kV adjustment per patient size (includes targeted exams where dose is matched to clinical indication); or iterative reconstruction. COMPARISON: CT cervical spin wo con* [id number] 09/09/2022 1:06 PM RADIATION DOSE METRICS: Total DLP (mGy-cm): 139.5 FINDINGS: Bones: Grade 1 anterolisthesis of C3 on C4 and grade 1 posterior listhesis of C4 on C5. This appears chronic in nature. Severe degenerative disc disease at C3-C4, C4-C5, C5-C6 and C6-C7 with associated endplate changes. No acute cervical spine fracture. There are tiny locules of air in the deep fat adjacent to the right scapula (series 4, image 82). It is unclear the source of this air and if clinically indicated chest CT may be obtained for further evaluation. Lungs: Lung apices are normal. Soft tissues: Unremarkable. CT/CT cervical spin wo con* [id number] IMPRESSION: 1. No acute cervical spine fracture. 2. There are tiny locules of air in the deep fat adjacent to the right scapula (series 4, image 82). It is unclear the source of this air and if clinically indicated chest CT may be obtained for further evaluation.
--- NOTE | 2025-05-09 16:33 | CTR_ITS ---
PROCEDURE INFORMATION: Exam: CT Head Without Contrast Exam date and time: 05/09/2025 5:03 PM Age: 84 years old Clinical indication: Injury or trauma; Fall; Blunt trauma (contusions or hematomas); Without loss of consciousness; Additional info: Fall hit head on thinners TECHNIQUE: Imaging protocol: Computed tomography of the head without contrast. Radiation optimization: All CT scans at this facility use at least one of these dose optimization techniques: automated exposure control; mA and/or kV adjustment per patient size (includes targeted exams where dose is matched to clinical indication); or iterative reconstruction. COMPARISON: MR head wo con* [id number] 07/01/2024 3:59 PM RADIATION DOSE METRICS: Total DLP (mGy-cm): 1087.5 FINDINGS: Brain: Subcortical and periventricular white matter changes consistent with small-vessel ischemic disease in the appropriate clinical setting. Small-vessel ischemic disease. No acute intracranial abnormality. Cerebral ventricles: No ventriculomegaly. Paranasal sinuses: Visualized sinuses are unremarkable. No fluid levels. Mastoid air cells: Visualized mastoid air cells are well aerated. Bones: Unremarkable. No acute fracture. Soft tissues: Unremarkable. CT/CT head wo con* [id number] IMPRESSION: 1. No acute intracranial abnormality. 2. Small-vessel ischemic disease.
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
--- NOTE | 2025-05-09 17:56 | ECG_ITS ---
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: : [id number] Requested By: Mirian Salas Order Number: [id number] Reading MD: Measurements Intervals [place] Rate: 51 P: 69 [place]: 203 QRS: 55 QRSD: 81 T: 52 QT: 428 QTc: 395 Interpretive Statements SINUS BRADYCARDIA POSSIBLE LEFT ATRIAL ENLARGEMENT [-0.1mV P-WAVE IN V1/V2] POSSIBLE RIGHT VENTRICULAR CONDUCTION DELAY [RSR (QR) IN V1/V2] SEPTAL MYOCARDIAL INFARCTION , OF INDETERMINATE AGE [40+ ms Q WAVE IN V1/V2] Compared to ECG 09/11/2022 01:30:51 Myocardial infarct finding now present Sinus rhythm no longer present Incomplete right bundle-branch block no longer present [email or web address]
[2025-05-09] MEDS: oxyCODONE-APAP 5-325 mg Tablet 1 TAB PO (17:59)
[2025-05-09] MEDS: oxyCODONE-APAP 5-325 mg Tablet 2 TAB PO (20:00)
== END 2025-05-09 20:23 | disposition home or self-care (01) ==
PROVIDERS: Emergency Provider Emergency Medicine; PCP Family Medicine
DX: S22.41XA Multiple fractures of ribs, right side, initial encounter for closed fracture (principal); Z79.01 Long term (current) use of anticoagulants; W19.XXXA Unspecified fall, initial encounter; R29.6 Repeated falls; I10 Essential (primary) hypertension
CPT/HCPCS: 36415; 70450; 71045; 71250; 72125; 74176; 80053; 85025; 85610; 93005; 93010; 99285; J9999

== ENCOUNTER → 2025-07-29 11:03 | Outpatient (BNVA) | payer MEDICARE, OTHER, SELFPAY | PROVIDERS: PCP Family Medicine; Visit Provider Podiatrist Foot & Ankle Surgery | DX: I73.9 Peripheral vascular disease, unspecified (principal); L60.3 Nail dystrophy; L84 Corns and callosities; L60.8 Other nail disorders | CPT/HCPCS: 11055; 11721 ==

== ENCOUNTER → 2025-10-21 11:35 | Outpatient (BNVA) | payer MEDICARE, OTHER, SELFPAY | PROVIDERS: PCP Family Medicine; Visit Provider Podiatrist Foot & Ankle Surgery | DX: I73.9 Peripheral vascular disease, unspecified (principal); L60.3 Nail dystrophy; L84 Corns and callosities; L60.8 Other nail disorders | CPT/HCPCS: 11056; 11721 ==